=== PATIENT | female | born 1935 | race Caucasian/White ===

== ENCOUNTER 2016-08-19 11:13 | Inpatient (IN) | payer MEDICARE ==
[~2016-08-19] VITALS: Ht 165.1 cm; Wt 58.0 kg
[~2016-08-19 11:13] MED LIST: ACET325T9 PO; ALBU2.5V5 NEB; ALEN70TA5 PO; AMOX1TAB10 PO; BISA-42 RC; BISA10SU55 RC; BISM262O PO; BUDE10.2 IH; CHOL10003 PO; CHOL20004 PO; CLOP75TA PO; CYAN10002 IM; FURO-69 PO; LEVO250T25 PO; MAG30ORA2 PO; METO50TA2 PO; NA P133E2 RC; PRED-220 PO; PROAIR HFA8.5 GM INH; PYRI25TA2 PO; RANI300C PO; TIOT18CA IH; TRAM50TA PO; ZOLP5TAB4 PO
[2016-08-19 11:40] LABS: BASO % 0 % (0-3); EOS % 1 % (0-3); HEMATOCRIT 43.7 % (36.0-47.0); HEMOGLOBIN 14.5 g/dL (12.0-15.5); LYMPH # 1.2 x10^3/uL (1.0-4.8); LYMPH % 12 % (24-48); MEAN CORPUSCULAR HEMOGLOBIN 32 pg (25-35); MEAN CORPUSCULAR HGB CONC 33 g/dL (31-37); MEAN CORPUSCULAR VOLUME 97 fL (79-100); MONO % 7 % (0-9); NEUT % 80 % (31-73); PLATELET COUNT 235 x10^3/uL (140-400); RED BLOOD COUNT 4.52 x10^6/uL (3.50-5.40); RED CELL DISTRIBUTION WIDTH 13.1 % (11.5-14.5); WHITE BLOOD COUNT 10.2 x10^3/uL (4.0-11.0)
--- NOTE | 2016-08-19 11:50 | RAD ---
PQRS Compliance Statement: One or more of the following individualized dose reduction techniques were utilized for this examination: 1. Automated exposure control 2. Adjustment of the mA and/or kV according to patient size 3. Use of iterative reconstruction technique CT of the head without contrast, 08/19/2016: History: Slurred speech, left-sided weakness Comparison is made to a study from 06/29/2016. A moderate-sized area of encephalomalacia is again noted centered in the left parietal region compatible with an old infarct. There are mild additional patchy lucencies in the deep white matter bilaterally compatible with chronic ischemic change. There is cerebral atrophy. A small unchanged lucency in the posterior aspect of the right cerebellar hemisphere suggests a small old infarct. The ventricles are within normal limits in size. There is no shift of the midline structures. There is no evidence of acute intracranial hemorrhage or mass effect. Basal ganglia calcifications are present. IMPRESSION: 1. Chronic findings as described above. 2. No acute intracranial abnormality is detected. Note: The findings were called to personnel in the [facility] ER at 11:47 AM on 08/19/2016.
[2016-08-19 11:52] LABS: PROTHROMBIN TIME PATIENT 12.5 SEC (11.7-14.0)
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
[2016-08-19 12:32] LABS: BLOOD UREA NITROGEN 12 mg/dL (7-20); CALCIUM 8.8 mg/dL (8.5-10.1); CARBON DIOXIDE 44 mmol/L (21-32); CHLORIDE 101 mmol/L (98-107); CREATININE 0.7 mg/dL (0.6-1.0); GFR 80.7; GLUCOSE 127 mg/dL (70-99); POTASSIUM 4.6 mmol/L (3.5-5.1); SODIUM 142 mmol/L (136-145)
[2016-08-19 12:37] LABS: ALBUMIN 2.9 g/dL (3.4-5.0); ALK PHOS 106 U/L (46-116); ALT (SGPT) 16 U/L (14-59); AST (SGOT) 18 U/L (15-37); DIRECT BILIRUBIN 0.1 mg/dL (0.0-0.2); TOTAL BILIRUBIN 0.4 mg/dL (0.2-1.0); TOTAL PROTEIN 6.9 g/dL (6.4-8.2)
--- NOTE | 2016-08-19 12:49 | RAD ---
EXAM: Chest one view. HISTORY: Cough and weakness. COMPARISON: 07/05/2016. FINDINGS: A frontal view of the chest is obtained. Opacity in the left base is chronic and most likely represent epicardial fat pad or scarring. There is mild scarring or atelectasis on the right. There is no pneumothorax or clear pleural effusion. The heart is not enlarged. There are atherosclerotic calcifications of the aorta. IMPRESSION: 1. Bibasilar atelectasis or scarring.
--- NOTE | 2016-08-19 13:13 | EKG ---
[facility] [address] [place] [address] Test Date: 2016-08-19 Test Time: 12:16:58 Pat Name: MADHURI LYNN Department: Room: Gender: F Dietary Supervisor: : 1935 Requested By: Alejandro MENDEZ Order Number: [id number] Reading MD: Saloni Angulo Measurements Intervals [place] Rate: 94 P: 6 UT: 180 QRS: -26 QRSD: 72 T: 11 QT: 330 QTc: 413 Interpretive Statements SINUS RHYTHM LEFTWARD AXIS QRS(T) CONTOUR ABNORMALITY CONSIDER ANTEROLATERAL MYOCARDIAL DAMAGE ABNORMAL ECG RI6.01 Compared to ECG 07/30/2016 07:10:50 Left-axis deviation now present Sinus tachycardia no longer present Electronically Signed On 08-23-2016 20:17:11 UNIT AIDE by Saloni Angulo
[2016-08-19] MEDS ORDERED: ACETAMINOPHEN 325 MG TABLET. PO PRN (14:00)
[2016-08-19] MEDS ORDERED: ONDANSETRON PF 4 MG/2 ML VIAL. IV PRN ×2 (14:00→18:15)
--- NOTE | 2016-08-19 15:14 | PDOC2 ---
CARDIAC CONSULT DATE OF CONSULT Date of Consult DATE: 08/19/16 TIME: 14:53 REASON FOR CONSULT Reason for Consult: elevated troponin REFERRING PHYSICIAN Referring Physician: Dr. Aditya Lizarraga SOURCE Source: Chart review, Patient (who is not verbal) HISTORY OF PRESENT ILLNESS HISTORY OF PRESENT ILLNESS 81 year old female with multiple hospitalizations since and currently in SNF @ [facility]. Daughter presented for visit this a.m and found pt with left side weakness and slurred speech according to son. Son indicates patient is normally very talkative and chatty and currently unable to do this. Bronchitic cough over the last several days. Shakes head no to questions about CP and dyspnea. No acute changes in EKG, however, initial troponin level was 0.074 associated with normal Cr. CT head without new findings. Reason for Visit: elevated troponin level PAST MEDICAL HISTORY Cardiovascular: CHF (chronic diastolic), HTN, Hyperlipidemia Pulmonary: COPD (with home oxygen) CENTRAL NERVOUS SYSTEM: CVA (X 2 with first event ~ 12 years ago) GI: GERD Psych: Anxiety Musculoskeletal: Osteoarthritis Endocrine: Osteoporosis PAST SURGICAL HISTORY Past Surgical History: Appendectomy, Tonsillectomy, Hysterectomy FAMILY HISTORY Family History: Cancer (breast, sister) SOCIAL HISTORY Smoke: Quit (about 12 years ago) ALCOHOL: none Drugs: None Lives: [facility] ([facility]) ALLERGIES ALLERGIES: Coded Allergies: No Known Drug Allergies (Unverified , 03/03/16) ROS Review of System limited as non-verbal; nods head "no" to questions about CP or dyspnea PHYSICAL EXAM General: Alert, Cooperative, No acute distress HEENT: Atraumatic, PERRLA Lungs: Other (diminished anteriorly) Heart: Regular rate, Normal S1, Normal S2, No murmurs, Other (tele: SR) Abdomen: Normal bowel sounds, Soft Extremities: Other (1+ bilateral lower extremity edema) Skin: No rashes, Other (venous stasis changes bilaterally) Psych/Mental Status: Mood NL MUSCULOSKELETAL: Osteoarthritic changes both hands VITALS VITALS Vital Signs Date Time Temp Pulse Resp B/P Pulse Ox O2 Delivery O2 Flow Rate FiO2 08/19/16 13:13 90 28 127/57 94 Nasal Cannula 3 08/19/16 11:13 98.1 98.1 LABS Lab: Laboratory Tests Test 08/19/16 11:16 08/19/16 11:20 08/19/16 12:05 Glucose (Fingerstick) 121mg/dL (70-99) White Blood Count 10.2x10^3/uL (4.0-11.0) Red Blood Count 4.52x10^6/uL (3.50-5.40) Hemoglobin 14.5g/dL (12.0-15.5) Hematocrit 43.7% (36.0-47.0) Mean Corpuscular Volume 97fL (79-100) Mean Corpuscular Hemoglobin 32pg (25-35) Mean Corpuscular Hemoglobin Concent 33g/dL (31-37) Red Cell Distribution Width 13.1% (11.5-14.5) Platelet Count 235x10^3/uL (140-400) Neutrophils (%) (Auto) 80% (31-73) Lymphocytes (%) (Auto) 12% (24-48) Monocytes (%) (Auto) 7% (0-9) Eosinophils (%) (Auto) 1% (0-3) Basophils (%) (Auto) 0% (0-3) Neutrophils # (Auto) 8.1x10^3uL (1.8-7.7) Lymphocytes # (Auto) 1.2x10^3/uL (1.0-4.8) Monocytes # (Auto) 0.8x10^3/uL (0.0-1.1) Eosinophils # (Auto) 0.1x10^3/uL (0.0-0.7) Basophils # (Auto) 0.0x10^3/uL (0.0-0.2) Prothrombin Time 12.5SEC (11.7-14.0) Prothromb Time International Ratio 1.0 (0.8-1.1) Activated Partial Thromboplast Time 29SEC (24-38) Troponin I Quantitative 0.074ng/mL (0.000-0.055) Sodium Level 142mmol/L (136-145) Potassium Level 4.6mmol/L (3.5-5.1) Chloride Level 101mmol/L (98-107) Carbon Dioxide Level 44mmol/L (21-32) Anion Gap (6-14) Blood Urea Nitrogen 12mg/dL (7-20) Creatinine 0.7mg/dL (0.6-1.0) Estimated GFR (Cockcroft-Gault) 80.7 Glucose Level 127mg/dL (70-99) Calcium Level 8.8mg/dL (8.5-10.1) Total Bilirubin 0.4mg/dL (0.2-1.0) Direct Bilirubin 0.1mg/dL (0.0-0.2) Aspartate Amino Transf (AST/SGOT) 18U/L (15-37) Alanine Aminotransferase (ALT/SGPT) 16U/L (14-59) Alkaline Phosphatase 106U/L (46-116) Total Protein 6.9g/dL (6.4-8.2) Albumin 2.9g/dL (3.4-5.0) IMAGES IMAGES CXR: 08/19/2016: Opacity in the left base is chronic and most likely represent epicardial fat pad or scarring. There is mild scarring or atelectasis on the right. There is no pneumothorax or clear pleural effusion. The heart is not enlarged. There are atherosclerotic calcifications of the aorta. IMPRESSION: 1. Bibasilar atelectasis or scarring. CT head: 08/19/2016: Comparison is made to a study from 06/29/2016. A moderate-sized area of encephalomalacia is again noted centered in the left parietal region compatible with an old infarct. There are mild additional patchy lucencies in the deep white matter bilaterally compatible with chronic ischemic change. There is cerebral atrophy. A small unchanged lucency in the posterior aspect of the right cerebellar hemisphere suggests a small old infarct. The ventricles are within normal limits in size. There is no shift of the midline structures. There is no evidence of acute intracranial hemorrhage or mass effect. Basal ganglia calcifications are present. IMPRESSION: 1. Chronic findings as described above. 2. No acute intracranial abnormality is detected. EKG EKG no acute changes; baseline SR ECHOCARDIOGRAM ECHOCARDIOGRAM 07/06/2016: TTE: The left ventricle is normal size. The left ventricular systolic function is normal and the ejection fraction is within normal range. LV ejection fraction is 55-60%. There is normal left ventricular wall thickness. There is no significant aortic valvular stenosis. Doppler and Color Flow revealed mild aortic regurgitation. Doppler and Color Flow revealed trace mitral regurgitation. Doppler and Color Flow revealed moderate tricuspid regurgitation. PAP 55mmHg ASSESSMENT/PLAN ASSESSMENT/PLAN 1. suspected stroke repeat echo to evaluate for clot in chamber as age > 70; not a candidate for bubble study 2. trivial troponin elevation no acute changes in EKG continue serial markers for r/o echo to evaluate for WMA 3. chronic diastolic HF, preserved LV function BP will not currently support diuretics or BB may need to give IV if swallow affected re-evaluate in a.m . 4. HTN currently controlled 5. COPD, oxygen requiring 6. GERD Problems: JOHAN ROBIN APRN Aug 19, 2016 15:14
--- NOTE | 2016-08-19 15:43 | ACF ---
Admission Forms Criteria MENTAL STATUS CHANGE Clinical Indications for Inpatient Care (Place 'X' for any and all applicable criteria): Ongoing inpatient care may be needed for ANY ONE of the following(1)(2)(3)(5)(6) : [X]I. Suspected serious etiology (eg, medical disorder, BIT WELDER event) of mental status change [ ]II. Danger to self or others not manageable at lower level of care [ ]III. Grave disability (eg, inability to perform self care necessary at lower level of care) [ ]IV. Agitation or inappropriate behavior interfering with care for primary condition (eg, attempting to discontinue lines or drains prematurely, unable to cooperate with respiratory care) [ ]V. Delirium [A] [D][E] as described by ANY ONE of the following(26): [ ]a) Delirium due to alcohol or sedative [F] withdrawal [ ]b) Delirium of uncertain etiology that has not responded to appropriate empiric treatment [ ]c) Delirium that prevents performance of a life-sustaining function (eg, feeding or hydrating oneself) [ ]. General contraindications and/or Inappropriate clinical situations for Observational Care in patients with Mental Status Change, when ANY ONE of the following is required: [ ]a) Prediction of prolongation of LOS based on ANY ONE of the following may be considered as a contraindication for observational care 2, 3, 4, 5, 6, 7, 8, 9, 10, 11 [ ]i) Age > 65 yrs. [ ]ii) Patient arriving by ambulance [ ]iii) Patient with high acuity [ ]iv) Patient requiring vital sign monitoring [ ]v) Patient on IV medication [ ]b) Systolic blood pressures 180mmHg 3,12 [ ]c) Patient with altered mental status including delirium and other alteration of consciousness, (3) [ ]d) Patient whose discharge disposition will be to a [facility] home or rehabilitation home should not be managed in Emergency Department Observation Unit. CMS rule requires 3 days hospital stay before such placement.3,13 [ ]e) Patient with failure to thrive due to broad array of etiologies 3,16,17 [ ]f) Inability to ambulate 3,14 Extended stay beyond goal length of stay for the primary condition may be needed until ALL of the following are present(3)(5): [ ]a) Underlying medical etiology of mental status change is absent, or has been established and adequately treated [ ]b) Danger to self or others is absent or manageable at lower level of care. [ ]c) Behavior crisis management, including physical or chemical restraints, is not required or available at lower level of car [ ]d) Substance or alcohol withdrawal is absent or manageable at lower level of care. [ ]e) Behavioral symptoms (eg, agitation, somnolence, inappropriate behavior) are absent, or are manageable at lower level of care. The original [facility] content created by [facility] has been revised. The portions of the content which have been revised are identified through the use of italic text or in bold, and [facility] has neither reviewed nor approved the modified material. All other unmodified content is copyright [facility]. Please see references footnoted in the original [facility] edition 2016 Admission Criteria Met?: Yes FRANCK AMARO Aug 19, 2016 15:43
--- NOTE | 2016-08-19 17:12 | CARD ---
APPROVED REPORT EXAM: Two-dimensional and M-mode echocardiogram with Doppler and color Doppler. Other Information Quality : GoodHR: 87bpm Rhythm : NSR INDICATION Tachycardia 2D DIMENSIONS RVDd3.0 (2.9-3.5cm)Left Atrium(2D)2.8 (1.6-4.0cm) IVSd1.1 (0.7-1.1cm)Aortic Root(2D)3.5 (2.0-3.7cm) LVDd3.9 (3.9-5.9cm)PWd1.1 (0.7-1.1cm) LVDs2.8 (2.5-4.0cm)FS (%) 28.5 % SV37.4 mlLVEF(%)55.7 (>50%) Aortic Valve AoV Peak Johnson.111.8cm/sAoV VTI19.2cm AO Peak GR.5.0mmHgLVOT Peak Johnson.106.6cm/s AO Mean GR.3mmHg Mitral Valve MV E Dteborui41.5cm/sMV DECEL LOMD145gg MV A Unalfrag839.9cm/sE/A Ratio0.5 MV A [id number] Pulmonary Valve PV Peak Unmgyacm13.4cm/s Tricuspid Valve TR P. Qayogxzu282rw/sTR Peak Gr.50mmHg LEFT VENTRICLE The left ventricle is normal size. There is normal left ventricular wall thickness. The left ventricu lar systolic function is normal and the ejection fraction is within normal range. The Ejection Fracti on is 55-60%. There is normal LV segmental wall motion. Transmitral Doppler flow pattern is Grade I-a bnormal relaxation pattern. No left ventricle thrombus noted on this study. There is no ventricular s eptal defect visualized. RIGHT VENTRICLE The right ventricle is normal size. There is normal right ventricular wall thickness. The right ventr icular systolic function is normal. ATRIA The left atrium size is normal. The right atrium size is normal. The interatrial septum is intact wit h no evidence for an atrial septal defect or patent foramen ovale as noted on 2-D or Doppler imaging. AORTIC VALVE The aortic valve is mildly sclerotic. Doppler and Color Flow revealed mild aortic regurgitation. Ther e is no significant aortic valvular stenosis. MITRAL VALVE Mitral annular calcification is mild. The mitral valve leaflets are thickened. There is no evidence o f mitral valve prolapse. There is no mitral valve stenosis. Doppler and Color Flow revealed trace derrell ral regurgitation. TRICUSPID VALVE Doppler and Color Flow revealed mild tricuspid regurgitation. The pulmonary artery systolic pressure is estimated at 55 mmHg. There is moderate pulmonary hypertension. PULMONIC VALVE Doppler and Color Flow revealed mild pulmonic valvular regurgitation. There is no pulmonic valvular s tenosis. GREAT VESSELS The aortic root is normal in size. The ascending aorta is normal in size. The pulmonary artery is nor mal. The IVC is normal in size and collapses >50% with inspiration. PERICARDIAL EFFUSION There is no evidence of significant pericardial effusion. Critical Notification Critical Value: No <Conclusion> The left ventricle is normal size. The left ventricular systolic function is normal and the ejection fraction is within normal range. The Ejection Fraction is 55-60%. There is no significant aortic valvular stenosis. Doppler and Color Flow revealed mild aortic regurgitation. Doppler and Color Flow revealed trace mitral regurgitation. Doppler and Color Flow revealed mild tricuspid regurgitation. The pulmonary artery systolic pressure is estimated at 55 mmHg. There is moderate pulmonary hypertension.
--- NOTE | 2016-08-19 18:03 | PDOC1 ---
History and Physical Past Medical History Cardiovascular: CHF (chronic diastolic), HTN, Hyperlipidemia Pulmonary: COPD (with home oxygen) CENTRAL NERVOUS SYSTEM: CVA (X 2 with first event ~ 12 years ago) GI: GERD Heme/Onc: No pertinent hx Hepatobiliary: No pertinent hx Psych: Anxiety Endocrine: Osteoporosis Past Surgical History Past Surgical History: Appendectomy, Tonsillectomy, Hysterectomy Family History Family History: Cancer (breast, sister) Social History Smoke: Quit (about 12 years ago) ALCOHOL: none Drugs: None Current Problem List Problem List Problems Medical Problems: (1) Altered mental status Status: Acute (2) Dysphasia Status: Acute (3) Elevated troponin Status: Acute Current Medications Current Medications Current Medications Medications (Trade) Dose Ordered Sig/Baldo Start Time Stop Time Status Last Admin Dose Admin Acetaminophen (Tylenol) 650 mg PRN Q4HRS PRN 08/19/16 14:00 08/20/16 13:59 Ondansetron HCl (Zofran) 4 mg PRN Q8HRS PRN 08/19/16 14:00 08/20/16 13:59 Allergies Allergies Allergies Coded Allergies Type Severity Reaction Last Updated Verified No Known Drug Allergies 03/03/16 No ROS Review of System CONSTITUTIONAL: No fever or chills EYES: No recent changes SKIN: No rash or itching CARDIOVASCULAR: No chest pain, syncope, palpitations, or edema RESPIRATORY: No SOB or cough GASTROINTESTINAL: No nausea, vomiting or abdominal pain NEUROLOGICAL: speech changes. ENDOCRINE: No cold or heat intolerance GENITOURINARY: No urgency or frequency of urination MUSCULOSKELETAL: No back pain or joint pain LYMPHATICS: No enlarged lymph nodes PSYCHIATRIC: No anxiety or depression Physical Exam Physical Exam GEN.: Mild distress. Alert and oriented. HEENT: Head is normocephalic, atraumatic NECK: Supple. no jvd LUNGS: Clear to auscultation. normal airflow, HEART: RRR, S1, S2 present. Peripheral pulses intact ABDOMEN: Soft, nontender. Positive bowel sounds. EXTREMITIES: Without any cyanosis. no jvd NEUROLOGIC: dysarthria, confused. PSYCHIATRIC: Normal affect, normal mood. SKIN: No visible skin changes. Vitals Vitals Vital Signs Date Time Temp Pulse Resp B/P Pulse Ox O2 Delivery O2 Flow Rate FiO2 08/19/16 16:07 90 34 122/57 93 Nasal Cannula 4 08/19/16 11:13 98.1 98.1 Labs Labs Laboratory Tests Test 08/19/16 11:16 08/19/16 11:20 08/19/16 12:05 Glucose (Fingerstick) 121mg/dL (70-99) White Blood Count 10.2x10^3/uL (4.0-11.0) Red Blood Count 4.52x10^6/uL (3.50-5.40) Hemoglobin 14.5g/dL (12.0-15.5) Hematocrit 43.7% (36.0-47.0) Mean Corpuscular Volume 97fL (79-100) Mean Corpuscular Hemoglobin 32pg (25-35) Mean Corpuscular Hemoglobin Concent 33g/dL (31-37) Red Cell Distribution Width 13.1% (11.5-14.5) Platelet Count 235x10^3/uL (140-400) Neutrophils (%) (Auto) 80% (31-73) Lymphocytes (%) (Auto) 12% (24-48) Monocytes (%) (Auto) 7% (0-9) Eosinophils (%) (Auto) 1% (0-3) Basophils (%) (Auto) 0% (0-3) Neutrophils # (Auto) 8.1x10^3uL (1.8-7.7) Lymphocytes # (Auto) 1.2x10^3/uL (1.0-4.8) Monocytes # (Auto) 0.8x10^3/uL (0.0-1.1) Eosinophils # (Auto) 0.1x10^3/uL (0.0-0.7) Basophils # (Auto) 0.0x10^3/uL (0.0-0.2) Prothrombin Time 12.5SEC (11.7-14.0) Prothromb Time International Ratio 1.0 (0.8-1.1) Activated Partial Thromboplast Time 29SEC (24-38) Troponin I Quantitative 0.074ng/mL (0.000-0.055) Sodium Level 142mmol/L (136-145) Potassium Level 4.6mmol/L (3.5-5.1) Chloride Level 101mmol/L (98-107) Carbon Dioxide Level 44mmol/L (21-32) Anion Gap (6-14) Blood Urea Nitrogen 12mg/dL (7-20) Creatinine 0.7mg/dL (0.6-1.0) Estimated GFR (Cockcroft-Gault) 80.7 Glucose Level 127mg/dL (70-99) Calcium Level 8.8mg/dL (8.5-10.1) Total Bilirubin 0.4mg/dL (0.2-1.0) Direct Bilirubin 0.1mg/dL (0.0-0.2) Aspartate Amino Transf (AST/SGOT) 18U/L (15-37) Alanine Aminotransferase (ALT/SGPT) 16U/L (14-59) Alkaline Phosphatase 106U/L (46-116) Total Protein 6.9g/dL (6.4-8.2) Albumin 2.9g/dL (3.4-5.0) Laboratory Tests Test 08/19/16 11:16 08/19/16 11:20 08/19/16 12:05 Glucose (Fingerstick) 121mg/dL (70-99) White Blood Count 10.2x10^3/uL (4.0-11.0) Red Blood Count 4.52x10^6/uL (3.50-5.40) Hemoglobin 14.5g/dL (12.0-15.5) Hematocrit 43.7% (36.0-47.0) Mean Corpuscular Volume 97fL (79-100) Mean Corpuscular Hemoglobin 32pg (25-35) Mean Corpuscular Hemoglobin Concent 33g/dL (31-37) Red Cell Distribution Width 13.1% (11.5-14.5) Platelet Count 235x10^3/uL (140-400) Neutrophils (%) (Auto) 80% (31-73) Lymphocytes (%) (Auto) 12% (24-48) Monocytes (%) (Auto) 7% (0-9) Eosinophils (%) (Auto) 1% (0-3) Basophils (%) (Auto) 0% (0-3) Neutrophils # (Auto) 8.1x10^3uL (1.8-7.7) Lymphocytes # (Auto) 1.2x10^3/uL (1.0-4.8) Monocytes # (Auto) 0.8x10^3/uL (0.0-1.1) Eosinophils # (Auto) 0.1x10^3/uL (0.0-0.7) Basophils # (Auto) 0.0x10^3/uL (0.0-0.2) Prothrombin Time 12.5SEC (11.7-14.0) Prothromb Time International Ratio 1.0 (0.8-1.1) Activated Partial Thromboplast Time 29SEC (24-38) Troponin I Quantitative 0.074ng/mL (0.000-0.055) Sodium Level 142mmol/L (136-145) Potassium Level 4.6mmol/L (3.5-5.1) Chloride Level 101mmol/L (98-107) Carbon Dioxide Level 44mmol/L (21-32) Anion Gap (6-14) Blood Urea Nitrogen 12mg/dL (7-20) Creatinine 0.7mg/dL (0.6-1.0) Estimated GFR (Cockcroft-Gault) 80.7 Glucose Level 127mg/dL (70-99) Calcium Level 8.8mg/dL (8.5-10.1) Total Bilirubin 0.4mg/dL (0.2-1.0) Direct Bilirubin 0.1mg/dL (0.0-0.2) Aspartate Amino Transf (AST/SGOT) 18U/L (15-37) Alanine Aminotransferase (ALT/SGPT) 16U/L (14-59) Alkaline Phosphatase 106U/L (46-116) Total Protein 6.9g/dL (6.4-8.2) Albumin 2.9g/dL (3.4-5.0) VTE Prophylaxis Ordered VTE Prophylaxis Devices: Yes VTE Pharmacological Prophylaxi: Yes LEXY ARRINGTON MD Aug 19, 2016 18:03
[2016-08-19] MEDS ORDERED: HYDROCODONE/APAP 5/325MG TABLET. PO PRN (18:15)
[2016-08-19] MEDS ORDERED: ALBUTEROL SULFATE 2.5 MG/3 ML NEBU. NEB PRN (18:15)
[2016-08-19] MEDS ORDERED: hydrALAZINE 20 MG/ML VIAL. IVP PRN (18:15)
[2016-08-19] MEDS: IV NORMAL SALINE 1000ML BAG 1,000 ML IV SCH (18:42)
[2016-08-19 21:27] VITALS: BP 134/59
--- NOTE | 2016-08-19 21:50 | HP ---
ADMIT DATE: 08/19/2016 CHIEF COMPLAINT: Speech changes. HISTORY OF PRESENT ILLNESS: A 81-year-old female patient, who was brought from [facility] for speech changes. Reportedly, the patient's daughter noticed this morning about some confusion and speech changes. As per the daughter, mother had slurring of speech and she was brought to the Emergency Room for questionable CVA; however, upon arrival, the patient's CT head is negative and she is out of TPA window. At the time of my examination, the patient is mildly confused and denies any symptoms; however, she is following commands and no obvious physical weakness seen in extremities. However, she still have dysarthria. She noted to have some mild elevation of troponins 0.074 and having mild distress. REVIEW OF SYSTEMS: Please see my electronic H and P. LABORATORY DATA: Sodium 142, potassium 4.6, chloride is 101, carbon dioxide 44, gap is not calculated, BUN is 12, creatinine is 0.7. Troponin is 0.074. CBC: Hemoglobin is 14.5, MCV is 97, platelets is 235. Serology not done. IMAGING STUDIES: 1. Chest x-ray, bilateral atelectasis. 2. CT of the head, no acute process seen. ASSESSMENT AND PLAN: 1. Dysarthria suspected cerebrovascular accident. 2. Prior history of cerebrovascular accident. 3. Hypertension. 4. Chronic diastolic heart failure. 5. Chronic obstructive pulmonary disease. 6. Mild elevation of troponins. 7. Altered mental state, AO times 2, slow response PLAN: 1. We will get an MRI and consult neurology. At this time, the patient is out of TPA window. 2. Consult Cardiology and monitor troponin. 3. Home medications reviewed and counseled. 4. Echocardiogram done in the ER, elevated ejection fraction 55%-60% with mild elevation of pulmonary arterial systolic pressure. 5. Physical therapy and occupational therapy. 6. The patient's swallow evaluation. 7. Follow Neurology recommendations. 8. Prognosis is guarded. LEXY ARRINGTON MD DR: LUC/zoran JOB#: [id number] / [id number] ABHISHEK
[2016-08-19 23:00] VITALS: BP 132/62
[2016-08-19] MEDS ORDERED: RANI300C PO (23:03)
[2016-08-19] MEDS ORDERED: ALEN70TA5 PO (23:03)
[2016-08-19] MEDS ORDERED: PYRI50TA4 PO (23:03)
[2016-08-20 03:10] VITALS: BP 138/63
[2016-08-20 05:49] LABS: BASO % 0 % (0-3); EOS % 0 % (0-3); HEMATOCRIT 43.3 % (36.0-47.0); HEMOGLOBIN 13.8 g/dL (12.0-15.5); LYMPH # 0.7 x10^3/uL (1.0-4.8); LYMPH % 7 % (24-48); MEAN CORPUSCULAR HEMOGLOBIN 32 pg (25-35); MEAN CORPUSCULAR HGB CONC 32 g/dL (31-37); MEAN CORPUSCULAR VOLUME 100 fL (79-100); MONO % 5 % (0-9); NEUT % 88 % (31-73); PLATELET COUNT 181 x10^3/uL (140-400); RED BLOOD COUNT 4.32 x10^6/uL (3.50-5.40); RED CELL DISTRIBUTION WIDTH 13.3 % (11.5-14.5)
[2016-08-20 05:56] LABS: BLOOD UREA NITROGEN 12 mg/dL (7-20); CALCIUM 8.8 mg/dL (8.5-10.1); CARBON DIOXIDE 41 mmol/L (21-32); CHLORIDE 101 mmol/L (98-107); CREATININE 0.5 mg/dL (0.6-1.0); GLUCOSE 102 mg/dL (70-99); POTASSIUM 4.6 mmol/L (3.5-5.1); SODIUM 139 mmol/L (136-145)
[2016-08-20] MEDS: IV NORMAL SALINE 1000ML BAG 1,000 ML IV SCH ×2 (07:35→09:52)
[2016-08-20 08:00] VITALS: BP 139/66
[2016-08-20 08:41] LABS: HCO3 ABG 43 mmol/L (21-28); PO2 ABG 105 mmHg (65-108); SAT O2 ABG 97 % (92-99)
[2016-08-20 08:44] LABS: PH ABG 7.19 (7.35-7.45)
[2016-08-20 08:45] LABS: FIO2 ABG 36; PCO2 ABG 115 mmHg (35-46)
[2016-08-20] MEDS: CHOLECALCIFEROL (VITAMIN D3) 1,000 UNIT TABLET PO SCH ×2 (09:00→20:50)
[2016-08-20] MEDS: METOPROLOL TART IMMED RELEASE 50 MG TABLET PO SCH ×2 (09:00→20:50)
--- NOTE | 2016-08-20 09:11 | PDOC ---
Provider Note Provider Note dictated see orders for BIPAP CHEYANNE SUTHERLAND MD Aug 20, 2016 09:10
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
--- NOTE | 2016-08-20 10:03 | PDOC ---
CARDIO Progress Notes Date and Time Date of Service 08/20/2016 Time of Evaluation 0930 Subjective Subjective: No Chest Pain, Other (lethargic) Vitals Vitals Vital Signs Date Time Temp Pulse Resp B/P Pulse Ox O2 Delivery O2 Flow Rate FiO2 08/20/16 09:09 93 BiPAP/CPAP 08/20/16 09:00 130 139/66 08/20/16 08:00 4.0 08/20/16 08:00 99.0 28 99.0 Weight Weight [ ] Input and Output Intake and Output Intake and Output 08/20/16 07:00 Output Total 1 ml Balance -1 ml Output Urine Total 1 ml # Voids 3 Laboratory Labs Laboratory Tests Test 08/19/16 11:16 08/19/16 11:20 08/19/16 12:05 08/19/16 17:55 Glucose (Fingerstick) 121mg/dL (70-99) White Blood Count 10.2x10^3/uL (4.0-11.0) Red Blood Count 4.52x10^6/uL (3.50-5.40) Hemoglobin 14.5g/dL (12.0-15.5) Hematocrit 43.7% (36.0-47.0) Mean Corpuscular Volume 97fL (79-100) Mean Corpuscular Hemoglobin 32pg (25-35) Mean Corpuscular Hemoglobin Concent 33g/dL (31-37) Red Cell Distribution Width 13.1% (11.5-14.5) Platelet Count 235x10^3/uL (140-400) Neutrophils (%) (Auto) 80% (31-73) Lymphocytes (%) (Auto) 12% (24-48) Monocytes (%) (Auto) 7% (0-9) Eosinophils (%) (Auto) 1% (0-3) Basophils (%) (Auto) 0% (0-3) Neutrophils # (Auto) 8.1x10^3uL (1.8-7.7) Lymphocytes # (Auto) 1.2x10^3/uL (1.0-4.8) Monocytes # (Auto) 0.8x10^3/uL (0.0-1.1) Eosinophils # (Auto) 0.1x10^3/uL (0.0-0.7) Basophils # (Auto) 0.0x10^3/uL (0.0-0.2) Prothrombin Time 12.5SEC (11.7-14.0) Prothromb Time International Ratio 1.0 (0.8-1.1) Activated Partial Thromboplast Time 29SEC (24-38) Troponin I Quantitative 0.074ng/mL (0.000-0.055) 0.060ng/mL (0.000-0.055) Sodium Level 142mmol/L (136-145) Potassium Level 4.6mmol/L (3.5-5.1) Chloride Level 101mmol/L (98-107) Carbon Dioxide Level 44mmol/L (21-32) Anion Gap (6-14) Blood Urea Nitrogen 12mg/dL (7-20) Creatinine 0.7mg/dL (0.6-1.0) Estimated GFR (Cockcroft-Gault) 80.7 Glucose Level 127mg/dL (70-99) Calcium Level 8.8mg/dL (8.5-10.1) Total Bilirubin 0.4mg/dL (0.2-1.0) Direct Bilirubin 0.1mg/dL (0.0-0.2) Aspartate Amino Transf (AST/SGOT) 18U/L (15-37) Alanine Aminotransferase (ALT/SGPT) 16U/L (14-59) Alkaline Phosphatase 106U/L (46-116) Total Protein 6.9g/dL (6.4-8.2) Albumin 2.9g/dL (3.4-5.0) Test 08/20/16 00:28 08/20/16 05:20 08/20/16 07:25 Troponin I Quantitative 0.082ng/mL (0.000-0.055) White Blood Count 10.0x10^3/uL (4.0-11.0) Red Blood Count 4.32x10^6/uL (3.50-5.40) Hemoglobin 13.8g/dL (12.0-15.5) Hematocrit 43.3% (36.0-47.0) Mean Corpuscular Volume 100fL (79-100) Mean Corpuscular Hemoglobin 32pg (25-35) Mean Corpuscular Hemoglobin Concent 32g/dL (31-37) Red Cell Distribution Width 13.3% (11.5-14.5) Platelet Count 181x10^3/uL (140-400) Neutrophils (%) (Auto) 88% (31-73) Lymphocytes (%) (Auto) 7% (24-48) Monocytes (%) (Auto) 5% (0-9) Eosinophils (%) (Auto) 0% (0-3) Basophils (%) (Auto) 0% (0-3) Neutrophils # (Auto) 8.8x10^3uL (1.8-7.7) Lymphocytes # (Auto) 0.7x10^3/uL (1.0-4.8) Monocytes # (Auto) 0.5x10^3/uL (0.0-1.1) Eosinophils # (Auto) 0.0x10^3/uL (0.0-0.7) Basophils # (Auto) 0.0x10^3/uL (0.0-0.2) Sodium Level 139mmol/L (136-145) Potassium Level 4.6mmol/L (3.5-5.1) Chloride Level 101mmol/L (98-107) Carbon Dioxide Level 41mmol/L (21-32) Anion Gap (6-14) Blood Urea Nitrogen 12mg/dL (7-20) Creatinine 0.5mg/dL (0.6-1.0) Estimated GFR (Cockcroft-Gault) 119.0 Glucose Level 102mg/dL (70-99) Calcium Level 8.8mg/dL (8.5-10.1) O2 Saturation 97% (92-99) Arterial Blood pH 7.19 (7.35-7.45) Arterial Blood pCO2 at Patient Temp 115mmHg (35-46) Arterial Blood pO2 at Patient Temp 105mmHg (65-108) Arterial Blood HCO3 43mmol/L (21-28) Arterial Blood Base Excess 10mmol/L (-3-3) FiO2 36 Physical Exam HEENT: Neck Supple W Full Motion Chest: Symmetric LUNGS: Other (bibasilarc crackles) Heart: S1S2, RRR Abdomen: Soft N/T Extremities: No Edema, No Calf Tenderness Neurology: other (lethargic) Assessment Assessment 1. Acute respiratory failure with underlying COPD/mod pulmonary HTN 2. Hypoxic encephalopathy with possible stroke 3. Elevated troponin: peaked 0.082. demand mediated 4. HTN: Controlled 5. Chronic diastolic HF: TTE with normal wall motion, preserved EF. No significant valvular insufficiencies, no septal defects 6. Possible MAT: better after BB Recommendation 1. Bipap per pulmonary 2. Stroke w/u per neurology 3. Pt on plavix at home, will defer antiplatelet of choice to neurology 4 .Continue with BB 5. lipid panel, TSH 6. Would consider future outpt MPI for further risk stratification 7. No further cardiac workup at this time DARLINE MAYBERRY APRN Aug 20, 2016 10:03
--- NOTE | 2016-08-20 10:14 | PDOC ---
PROGRESS NOTES Chief Complaint Chief Complaint 1. Dysarthria AMS POA 2. Prior history of cerebrovascular accident. 3. Hypertension. 4. Chronic diastolic heart failure. 5. Chronic obstructive pulmonary disease. 6. Mild elevation of troponin. 7. Hypercapnic respiratory failure Plan ABG reviewed, in respiratory acidosis started on Bipap Pulmonolgy consult MRI pending Supple mental oxygen Aspirin or Plavix per neurology, awaiting neurology input PT/OT ECHO normal EF d/w cardiology home medications reconciled periodic nebulizations prn History of Present Illness History of Present Illness MORE CONFUSION THIS NO FEVER NO CHILLS Vitals Vitals Vital Signs Date Time Temp Pulse Resp B/P Pulse Ox O2 Delivery O2 Flow Rate FiO2 08/20/16 09:09 93 BiPAP/CPAP 08/20/16 09:00 130 139/66 08/20/16 08:00 4.0 08/20/16 08:00 99.0 28 99.0 Physical Exam General: Alert, Cooperative, No acute distress Heart: Regular rate, Normal S1, Normal S2, No murmurs, Other (tele: SR) Lungs: Wheezing, Other Abdomen: Normal bowel sounds, Soft Extremities: Other (1+ bilateral lower extremity edema) Skin: No rashes, Other (venous stasis changes bilaterally) Labs LABS Laboratory Tests Test 08/19/16 11:16 08/19/16 11:20 08/19/16 12:05 08/19/16 17:55 Glucose (Fingerstick) 121mg/dL (70-99) White Blood Count 10.2x10^3/uL (4.0-11.0) Red Blood Count 4.52x10^6/uL (3.50-5.40) Hemoglobin 14.5g/dL (12.0-15.5) Hematocrit 43.7% (36.0-47.0) Mean Corpuscular Volume 97fL (79-100) Mean Corpuscular Hemoglobin 32pg (25-35) Mean Corpuscular Hemoglobin Concent 33g/dL (31-37) Red Cell Distribution Width 13.1% (11.5-14.5) Platelet Count 235x10^3/uL (140-400) Neutrophils (%) (Auto) 80% (31-73) Lymphocytes (%) (Auto) 12% (24-48) Monocytes (%) (Auto) 7% (0-9) Eosinophils (%) (Auto) 1% (0-3) Basophils (%) (Auto) 0% (0-3) Neutrophils # (Auto) 8.1x10^3uL (1.8-7.7) Lymphocytes # (Auto) 1.2x10^3/uL (1.0-4.8) Monocytes # (Auto) 0.8x10^3/uL (0.0-1.1) Eosinophils # (Auto) 0.1x10^3/uL (0.0-0.7) Basophils # (Auto) 0.0x10^3/uL (0.0-0.2) Prothrombin Time 12.5SEC (11.7-14.0) Prothromb Time International Ratio 1.0 (0.8-1.1) Activated Partial Thromboplast Time 29SEC (24-38) Troponin I Quantitative 0.074ng/mL (0.000-0.055) 0.060ng/mL (0.000-0.055) Sodium Level 142mmol/L (136-145) Potassium Level 4.6mmol/L (3.5-5.1) Chloride Level 101mmol/L (98-107) Carbon Dioxide Level 44mmol/L (21-32) Anion Gap (6-14) Blood Urea Nitrogen 12mg/dL (7-20) Creatinine 0.7mg/dL (0.6-1.0) Estimated GFR (Cockcroft-Gault) 80.7 Glucose Level 127mg/dL (70-99) Calcium Level 8.8mg/dL (8.5-10.1) Total Bilirubin 0.4mg/dL (0.2-1.0) Direct Bilirubin 0.1mg/dL (0.0-0.2) Aspartate Amino Transf (AST/SGOT) 18U/L (15-37) Alanine Aminotransferase (ALT/SGPT) 16U/L (14-59) Alkaline Phosphatase 106U/L (46-116) Total Protein 6.9g/dL (6.4-8.2) Albumin 2.9g/dL (3.4-5.0) Test 08/20/16 00:28 08/20/16 05:20 08/20/16 07:25 Troponin I Quantitative 0.082ng/mL (0.000-0.055) 0.105ng/mL (0.000-0.055) White Blood Count 10.0x10^3/uL (4.0-11.0) Red Blood Count 4.32x10^6/uL (3.50-5.40) Hemoglobin 13.8g/dL (12.0-15.5) Hematocrit 43.3% (36.0-47.0) Mean Corpuscular Volume 100fL (79-100) Mean Corpuscular Hemoglobin 32pg (25-35) Mean Corpuscular Hemoglobin Concent 32g/dL (31-37) Red Cell Distribution Width 13.3% (11.5-14.5) Platelet Count 181x10^3/uL (140-400) Neutrophils (%) (Auto) 88% (31-73) Lymphocytes (%) (Auto) 7% (24-48) Monocytes (%) (Auto) 5% (0-9) Eosinophils (%) (Auto) 0% (0-3) Basophils (%) (Auto) 0% (0-3) Neutrophils # (Auto) 8.8x10^3uL (1.8-7.7) Lymphocytes # (Auto) 0.7x10^3/uL (1.0-4.8) Monocytes # (Auto) 0.5x10^3/uL (0.0-1.1) Eosinophils # (Auto) 0.0x10^3/uL (0.0-0.7) Basophils # (Auto) 0.0x10^3/uL (0.0-0.2) Sodium Level 139mmol/L (136-145) Potassium Level 4.6mmol/L (3.5-5.1) Chloride Level 101mmol/L (98-107) Carbon Dioxide Level 41mmol/L (21-32) Anion Gap (6-14) Blood Urea Nitrogen 12mg/dL (7-20) Creatinine 0.5mg/dL (0.6-1.0) Estimated GFR (Cockcroft-Gault) 119.0 Glucose Level 102mg/dL (70-99) Calcium Level 8.8mg/dL (8.5-10.1) O2 Saturation 97% (92-99) Arterial Blood pH 7.19 (7.35-7.45) Arterial Blood pCO2 at Patient Temp 115mmHg (35-46) Arterial Blood pO2 at Patient Temp 105mmHg (65-108) Arterial Blood HCO3 43mmol/L (21-28) Arterial Blood Base Excess 10mmol/L (-3-3) FiO2 36 Assessment and Plan Assessmemt and Plan Problems Medical Problems: (1) Altered mental status Status: Acute (2) Dysphasia Status: Acute (3) Elevated troponin Status: Acute Problems: Comment Review of Relevant I have reviewed the following items ana laura (where applicable) has been applied. Labs Laboratory Tests Test 08/19/16 11:16 08/19/16 11:20 08/19/16 12:05 08/19/16 17:55 Glucose (Fingerstick) 121mg/dL (70-99) White Blood Count 10.2x10^3/uL (4.0-11.0) Red Blood Count 4.52x10^6/uL (3.50-5.40) Hemoglobin 14.5g/dL (12.0-15.5) Hematocrit 43.7% (36.0-47.0) Mean Corpuscular Volume 97fL (79-100) Mean Corpuscular Hemoglobin 32pg (25-35) Mean Corpuscular Hemoglobin Concent 33g/dL (31-37) Red Cell Distribution Width 13.1% (11.5-14.5) Platelet Count 235x10^3/uL (140-400) Neutrophils (%) (Auto) 80% (31-73) Lymphocytes (%) (Auto) 12% (24-48) Monocytes (%) (Auto) 7% (0-9) Eosinophils (%) (Auto) 1% (0-3) Basophils (%) (Auto) 0% (0-3) Neutrophils # (Auto) 8.1x10^3uL (1.8-7.7) Lymphocytes # (Auto) 1.2x10^3/uL (1.0-4.8) Monocytes # (Auto) 0.8x10^3/uL (0.0-1.1) Eosinophils # (Auto) 0.1x10^3/uL (0.0-0.7) Basophils # (Auto) 0.0x10^3/uL (0.0-0.2) Prothrombin Time 12.5SEC (11.7-14.0) Prothromb Time International Ratio 1.0 (0.8-1.1) Activated Partial Thromboplast Time 29SEC (24-38) Troponin I Quantitative 0.074ng/mL (0.000-0.055) 0.060ng/mL (0.000-0.055) Sodium Level 142mmol/L (136-145) Potassium Level 4.6mmol/L (3.5-5.1) Chloride Level 101mmol/L (98-107) Carbon Dioxide Level 44mmol/L (21-32) Anion Gap (6-14) Blood Urea Nitrogen 12mg/dL (7-20) Creatinine 0.7mg/dL (0.6-1.0) Estimated GFR (Cockcroft-Gault) 80.7 Glucose Level 127mg/dL (70-99) Calcium Level 8.8mg/dL (8.5-10.1) Total Bilirubin 0.4mg/dL (0.2-1.0) Direct Bilirubin 0.1mg/dL (0.0-0.2) Aspartate Amino Transf (AST/SGOT) 18U/L (15-37) Alanine Aminotransferase (ALT/SGPT) 16U/L (14-59) Alkaline Phosphatase 106U/L (46-116) Total Protein 6.9g/dL (6.4-8.2) Albumin 2.9g/dL (3.4-5.0) Test 08/20/16 00:28 08/20/16 05:20 08/20/16 07:25 Troponin I Quantitative 0.082ng/mL (0.000-0.055) 0.105ng/mL (0.000-0.055) White Blood Count 10.0x10^3/uL (4.0-11.0) Red Blood Count 4.32x10^6/uL (3.50-5.40) Hemoglobin 13.8g/dL (12.0-15.5) Hematocrit 43.3% (36.0-47.0) Mean Corpuscular Volume 100fL (79-100) Mean Corpuscular Hemoglobin 32pg (25-35) Mean Corpuscular Hemoglobin Concent 32g/dL (31-37) Red Cell Distribution Width 13.3% (11.5-14.5) Platelet Count 181x10^3/uL (140-400) Neutrophils (%) (Auto) 88% (31-73) Lymphocytes (%) (Auto) 7% (24-48) Monocytes (%) (Auto) 5% (0-9) Eosinophils (%) (Auto) 0% (0-3) Basophils (%) (Auto) 0% (0-3) Neutrophils # (Auto) 8.8x10^3uL (1.8-7.7) Lymphocytes # (Auto) 0.7x10^3/uL (1.0-4.8) Monocytes # (Auto) 0.5x10^3/uL (0.0-1.1) Eosinophils # (Auto) 0.0x10^3/uL (0.0-0.7) Basophils # (Auto) 0.0x10^3/uL (0.0-0.2) Sodium Level 139mmol/L (136-145) Potassium Level 4.6mmol/L (3.5-5.1) Chloride Level 101mmol/L (98-107) Carbon Dioxide Level 41mmol/L (21-32) Anion Gap (6-14) Blood Urea Nitrogen 12mg/dL (7-20) Creatinine 0.5mg/dL (0.6-1.0) Estimated GFR (Cockcroft-Gault) 119.0 Glucose Level 102mg/dL (70-99) Calcium Level 8.8mg/dL (8.5-10.1) O2 Saturation 97% (92-99) Arterial Blood pH 7.19 (7.35-7.45) Arterial Blood pCO2 at Patient Temp 115mmHg (35-46) Arterial Blood pO2 at Patient Temp 105mmHg (65-108) Arterial Blood HCO3 43mmol/L (21-28) Arterial Blood Base Excess 10mmol/L (-3-3) FiO2 36 Laboratory Tests Test 08/19/16 11:16 08/19/16 11:20 08/19/16 12:05 08/19/16 17:55 Glucose (Fingerstick) 121mg/dL (70-99) White Blood Count 10.2x10^3/uL (4.0-11.0) Red Blood Count 4.52x10^6/uL (3.50-5.40) Hemoglobin 14.5g/dL (12.0-15.5) Hematocrit 43.7% (36.0-47.0) Mean Corpuscular Volume 97fL (79-100) Mean Corpuscular Hemoglobin 32pg (25-35) Mean Corpuscular Hemoglobin Concent 33g/dL (31-37) Red Cell Distribution Width 13.1% (11.5-14.5) Platelet Count 235x10^3/uL (140-400) Neutrophils (%) (Auto) 80% (31-73) Lymphocytes (%) (Auto) 12% (24-48) Monocytes (%) (Auto) 7% (0-9) Eosinophils (%) (Auto) 1% (0-3) Basophils (%) (Auto) 0% (0-3) Neutrophils # (Auto) 8.1x10^3uL (1.8-7.7) Lymphocytes # (Auto) 1.2x10^3/uL (1.0-4.8) Monocytes # (Auto) 0.8x10^3/uL (0.0-1.1) Eosinophils # (Auto) 0.1x10^3/uL (0.0-0.7) Basophils # (Auto) 0.0x10^3/uL (0.0-0.2) Prothrombin Time 12.5SEC (11.7-14.0) Prothromb Time International Ratio 1.0 (0.8-1.1) Activated Partial Thromboplast Time 29SEC (24-38) Troponin I Quantitative 0.074ng/mL (0.000-0.055) 0.060ng/mL (0.000-0.055) Sodium Level 142mmol/L (136-145) Potassium Level 4.6mmol/L (3.5-5.1) Chloride Level 101mmol/L (98-107) Carbon Dioxide Level 44mmol/L (21-32) Anion Gap (6-14) Blood Urea Nitrogen 12mg/dL (7-20) Creatinine 0.7mg/dL (0.6-1.0) Estimated GFR (Cockcroft-Gault) 80.7 Glucose Level 127mg/dL (70-99) Calcium Level 8.8mg/dL (8.5-10.1) Total Bilirubin 0.4mg/dL (0.2-1.0) Direct Bilirubin 0.1mg/dL (0.0-0.2) Aspartate Amino Transf (AST/SGOT) 18U/L (15-37) Alanine Aminotransferase (ALT/SGPT) 16U/L (14-59) Alkaline Phosphatase 106U/L (46-116) Total Protein 6.9g/dL (6.4-8.2) Albumin 2.9g/dL (3.4-5.0) Test 08/20/16 00:28 08/20/16 05:20 08/20/16 07:25 Troponin I Quantitative 0.082ng/mL (0.000-0.055) 0.105ng/mL (0.000-0.055) White Blood Count 10.0x10^3/uL (4.0-11.0) Red Blood Count 4.32x10^6/uL (3.50-5.40) Hemoglobin 13.8g/dL (12.0-15.5) Hematocrit 43.3% (36.0-47.0) Mean Corpuscular Volume 100fL (79-100) Mean Corpuscular Hemoglobin 32pg (25-35) Mean Corpuscular Hemoglobin Concent 32g/dL (31-37) Red Cell Distribution Width 13.3% (11.5-14.5) Platelet Count 181x10^3/uL (140-400) Neutrophils (%) (Auto) 88% (31-73) Lymphocytes (%) (Auto) 7% (24-48) Monocytes (%) (Auto) 5% (0-9) Eosinophils (%) (Auto) 0% (0-3) Basophils (%) (Auto) 0% (0-3) Neutrophils # (Auto) 8.8x10^3uL (1.8-7.7) Lymphocytes # (Auto) 0.7x10^3/uL (1.0-4.8) Monocytes # (Auto) 0.5x10^3/uL (0.0-1.1) Eosinophils # (Auto) 0.0x10^3/uL (0.0-0.7) Basophils # (Auto) 0.0x10^3/uL (0.0-0.2) Sodium Level 139mmol/L (136-145) Potassium Level 4.6mmol/L (3.5-5.1) Chloride Level 101mmol/L (98-107) Carbon Dioxide Level 41mmol/L (21-32) Anion Gap (6-14) Blood Urea Nitrogen 12mg/dL (7-20) Creatinine 0.5mg/dL (0.6-1.0) Estimated GFR (Cockcroft-Gault) 119.0 Glucose Level 102mg/dL (70-99) Calcium Level 8.8mg/dL (8.5-10.1) O2 Saturation 97% (92-99) Arterial Blood pH 7.19 (7.35-7.45) Arterial Blood pCO2 at Patient Temp 115mmHg (35-46) Arterial Blood pO2 at Patient Temp 105mmHg (65-108) Arterial Blood HCO3 43mmol/L (21-28) Arterial Blood Base Excess 10mmol/L (-3-3) FiO2 36 Medications Current Medications Ondansetron HCl (Zofran) 4 mg PRN Q8HRS PRN IV NAUSEA/VOMITING; Start 08/19/16 at 14:00; Stop 08/20/16 at 13:59 Acetaminophen (Tylenol) 650 mg PRN Q4HRS PRN PO FEVER; Start 08/19/16 at 14:00 ; Stop 08/20/16 at 13:59 Acetaminophen (Tylenol) 325 mg PRN Q6HRS PRN PO MILD PAIN / TEMP; Start at 18:15 Acetaminophen/ Hydrocodone Bitart (Lortab 5/325) 1 tab PRN Q6HRS PRN PO MODERATE TO SEVERE PAIN; Start 08/19/16 at 18:15 Hydralazine HCl (Apresoline) 10 mg PRN Q4HRS PRN IVP ELEVATED BP, SEE COMMENTS ; Start 08/19/16 at 18:15 Ondansetron HCl (Zofran) 4 mg PRN Q8HRS PRN IV NAUSEA/VOMITING; Start 08/19/16 at 18:15 Albuterol Sulfate 2.5 mg 2.5 mg PRN Q4HRS PRN NEB SHORTNESS OF BREATH Last administered on 08/19/16 19:23; Start 08/19/16 at 18:15 Sodium Chloride (Iv Sodium Chloride 0.9% 1000ml Bag) 1,000 ml @ 75 mls/hr [id number] IV Last administered on 08/20/16 09:52; Start 08/19/16 at 18:15 Vitamin D (Vitamin D3) 1,000 unit BID PO ; Start 08/20/16 at 09:00 Metoprolol Tartrate (Lopressor) 50 mg BID PO Last administered on 08/20/16 09: 00; Start 08/20/16 at 09:00 Active Scripts Active Tramadol Hcl 50 Mg Tablet 1 Tab PO PRN Q6HRS PRN Prednisone 10 Mg Tablet 10 Mg PO UD Take 3 tablets by mouth daily for 3 days, then take 2 tablets by mouth daily for 3 days, then take 1 tablet by mouth daily for 3 days, then stop. Levaquin (Levofloxacin) 250 Mg Tablet 250 Mg PO DAILY06 Amox Tr-K Clv 500-125 Mg Tab (Amoxicillin/Potassium Clav) 1 Each Tablet 1 Tab PO BID Reported Vitamin B-6 (Pyridoxine Hcl) 50 Mg Tablet 50 Mg PO Ranitidine Hcl 300 Mg Capsule 1 Cap PO DAILY Alendronate Sodium 70 Mg Tablet 1 Tab PO WEEKLY Kaopectate (Bismuth Subsalicylate) 262 Mg/15 Ml Oral.susp 30 Ml PO PRN Q8HRS PRN Mag-Al Plus Xs Suspension (Mag Hydrox/Al Hydrox/Simeth) 30 Ml Oral.susp 30 Ml PO PRN Q4HRS PRN Albuterol Sulfate Neb Soln (Albuterol Sulfate) 2.5 Mg/3 Ml Vial.neb 2.5 Mg NEB PRN Q6HRS PRN Vitamin D3 (Cholecalciferol (Vitamin D3)) 1,000 Unit Tablet 1,000 Unit PO BID Dulcolax (Bisacodyl) 10 Mg Supp.rect 10 Mg RC PRN DAILY PRN Fleet Enema (Na Phos,M-B/Na Phos,Di-Ba) 133 Ml Enema 1 Each RC PRN PRN Tylenol (Acetaminophen) 325 Mg Tablet 2 Tab PO PRN Q6HRS PRN Zolpidem Tartrate 5 Mg Tablet 1 Tab PO PRN QHS PRN Spiriva (Tiotropium [place]) 18 Mcg Cap.w.dev 1 Cap IH DAILY Symbicort 160-4.5 Mcg Inhaler (Budesonide/Formoterol Fumarate) 10.2 Gm Hfa.aer.ad 2 Puff IH BID Proair Hfa Inhaler (Albuterol Sulfate) 8.5 Gm Hfa.aer.ad 2 Puff INH PRN Q6HRS PRN Metoprolol Tartrate 50 Mg Tablet 1 Tab PO BID Clopidogrel (Clopidogrel Bisulfate) 75 Mg Tablet 1 Tab PO DAILY Lasix (Furosemide) 20 Mg Tablet 1 Tab PO DAILY Vitals/I & O Vital Sign - Last 24 Hours 08/19/16 08/19/16 08/19/16 08/19/16 11:13 11:53 12:13 12:33 Temp 98.1 98.1 Pulse 99 96 92 92 Resp 26 B/P 132/60 115/55 134/71 127/59 Pulse Ox 94 96 95 97 O2 Delivery Nasal Cannula Nasal Cannula Nasal Cannula Nasal Cannula O2 Flow Rate 3 3 3 3 08/19/16 08/19/16 08/19/16 08/19/16 12:53 13:13 13:43 14:13 Pulse 86 90 98 92 Resp 26 B/P 113/56 127/57 124/61 116/58 Pulse Ox 97 94 94 94 O2 Delivery Nasal Cannula Nasal Cannula Nasal Cannula Nasal Cannula O2 Flow Rate 3 3 4 4 08/19/16 08/19/16 08/19/16 08/19/16 14:33 15:07 15:37 16:07 Pulse 92 88 98 90 Resp 24 30 34 B/P 115/56 113/56 129/58 122/57 Pulse Ox 94 94 93 93 O2 Delivery Nasal Cannula Nasal Cannula Nasal Cannula Nasal Cannula O2 Flow Rate 4 4 4 4 08/19/16 08/19/16 08/19/16 08/19/16 17:07 18:07 19:07 19:24 Pulse 106 96 102 Resp 38 42 40 B/P 122/60 117/57 135/62 Pulse Ox 93 96 94 93 O2 Delivery Nasal Cannula Nasal Cannula Nasal Cannula Nasal Cannula O2 Flow Rate 3 3 3 3.0 08/19/16 08/19/16 08/20/16 08/20/16 21:27 23:00 00:32 03:10 Temp 96.9 98.0 96.9 98.0 Pulse 85 89 114 Resp 18 18 22 B/P 134/59 132/62 138/63 Pulse Ox 95 92 96 O2 Delivery Room Air Nasal Cannula Nasal Cannula O2 Flow Rate 3.0 4.0 3.0 08/20/16 08/20/16 08/20/16 08/20/16 08:00 08:00 09:00 09:09 Temp 99.0 99.0 Pulse 128 130 Resp 28 B/P 139/66 139/66 Pulse Ox 95 93 O2 Delivery Venturi Mask Mask BiPAP/CPAP O2 Flow Rate 3.0 4.0 Intake and Output 08/19/16 08/19/16 08/20/16 15:00 23:00 07:00 Output Total 1 ml Balance -1 ml LEXY ARRINGTON MD Aug 20, 2016 10:14
[2016-08-20 11:00] VITALS: BP 119/66
[2016-08-20 11:00] LABS: PLT ESTIMATE ADEQUATE (ADEQUATE)
[2016-08-20 11:11] LABS: CHOLESTEROL/HDL RATIO 2.6
[2016-08-20 11:13] LABS: HCO3 ABG 32 mmol/L (21-28); PH ABG 7.32 (7.35-7.45); PO2 ABG 57 mmHg (65-108); SAT O2 ABG 89 % (92-99)
[2016-08-20 11:16] LABS: PCO2 ABG 64 mmHg (35-46)
--- NOTE | 2016-08-20 11:22 | PDOC2 ---
NEUROLOGY CONSULT Date of Admission Date of Admission DATE: 08/20/16 TIME: 11:14 Reason for Consult Reason for Consult: Altered mental status Referring Physician Referring Physician: Dr. Paz PCP: Dr. Krause Source Source: Chart review History of Present Illness History of Present Illness The patient is a 81-year-old right-handed female brought in with dysarthria and altered mental status. She has been founded be invested to a failure. I saw her 5 months ago when she was admitted with altered mental status. I felt that she had new onset of dementia but she did have low B12 levels and elevated TSH levels. I was unable to reach family members. Past Medical History Cardiovascular: HTN Pulmonary: COPD CENTRAL NERVOUS SYSTEM: CVA Past Surgical History Past Surgical History: Other ( metal [place], right leg, fracture) Family History Family History: No pertinent hx Social History Social History , nonsmoker, nondrinker Current Medications Current Medications Current Medications Ondansetron HCl (Zofran) 4 mg PRN Q8HRS PRN IV NAUSEA/VOMITING; Start 08/19/16 at 14:00; Stop 08/20/16 at 13:59 Acetaminophen (Tylenol) 650 mg PRN Q4HRS PRN PO FEVER; Start 08/19/16 at 14:00 ; Stop 08/20/16 at 13:59 Acetaminophen (Tylenol) 325 mg PRN Q6HRS PRN PO MILD PAIN / TEMP; Start at 18:15 Acetaminophen/ Hydrocodone Bitart (Lortab 5/325) 1 tab PRN Q6HRS PRN PO MODERATE TO SEVERE PAIN; Start 08/19/16 at 18:15 Hydralazine HCl (Apresoline) 10 mg PRN Q4HRS PRN IVP ELEVATED BP, SEE COMMENTS ; Start 08/19/16 at 18:15 Ondansetron HCl (Zofran) 4 mg PRN Q8HRS PRN IV NAUSEA/VOMITING; Start 08/19/16 at 18:15 Albuterol Sulfate 2.5 mg 2.5 mg PRN Q4HRS PRN NEB SHORTNESS OF BREATH Last administered on 08/19/16t 19:23; Start 08/19/16 at 18:15 Sodium Chloride (Iv Sodium Chloride 0.9% 1000ml Bag) 1,000 ml @ 75 mls/hr [id number] IV Last administered on 08/20/16 09:52; Start 08/19/16 at 18:15 Vitamin D (Vitamin D3) 1,000 unit BID PO ; Start 08/20/16 at 09:00 Metoprolol Tartrate (Lopressor) 50 mg BID PO Last administered on 08/20/16 09: 00; Start 08/20/16 at 09:00 Active Scripts Active Tramadol Hcl 50 Mg Tablet 1 Tab PO PRN Q6HRS PRN Prednisone 10 Mg Tablet 10 Mg PO UD Take 3 tablets by mouth daily for 3 days, then take 2 tablets by mouth daily for 3 days, then take 1 tablet by mouth daily for 3 days, then stop. Levaquin (Levofloxacin) 250 Mg Tablet 250 Mg PO DAILY06 Amox Tr-K Clv 500-125 Mg Tab (Amoxicillin/Potassium Clav) 1 Each Tablet 1 Tab PO BID Reported Vitamin B-6 (Pyridoxine Hcl) 50 Mg Tablet 50 Mg PO Ranitidine Hcl 300 Mg Capsule 1 Cap PO DAILY Alendronate Sodium 70 Mg Tablet 1 Tab PO WEEKLY Kaopectate (Bismuth Subsalicylate) 262 Mg/15 Ml Oral.susp 30 Ml PO PRN Q8HRS PRN Mag-Al Plus Xs Suspension (Mag Hydrox/Al Hydrox/Simeth) 30 Ml Oral.susp 30 Ml PO PRN Q4HRS PRN Albuterol Sulfate Neb Soln (Albuterol Sulfate) 2.5 Mg/3 Ml Vial.neb 2.5 Mg NEB PRN Q6HRS PRN Vitamin D3 (Cholecalciferol (Vitamin D3)) 1,000 Unit Tablet 1,000 Unit PO BID Dulcolax (Bisacodyl) 10 Mg Supp.rect 10 Mg RC PRN DAILY PRN Fleet Enema (Na Phos,M-B/Na Phos,Di-Ba) 133 Ml Enema 1 Each RC PRN PRN Tylenol (Acetaminophen) 325 Mg Tablet 2 Tab PO PRN Q6HRS PRN Zolpidem Tartrate 5 Mg Tablet 1 Tab PO PRN QHS PRN Spiriva (Tiotropium [place]) 18 Mcg Cap.w.dev 1 Cap IH DAILY Symbicort 160-4.5 Mcg Inhaler (Budesonide/Formoterol Fumarate) 10.2 Gm Hfa.aer.ad 2 Puff IH BID Proair Hfa Inhaler (Albuterol Sulfate) 8.5 Gm Hfa.aer.ad 2 Puff INH PRN Q6HRS PRN Metoprolol Tartrate 50 Mg Tablet 1 Tab PO BID Clopidogrel (Clopidogrel Bisulfate) 75 Mg Tablet 1 Tab PO DAILY Lasix (Furosemide) 20 Mg Tablet 1 Tab PO DAILY Allergies Allergies: Coded Allergies: No Known Drug Allergies (Unverified , 03/03/16) ROS Review of System Unobtainable Physical Exam Physical Examination PHYSICAL EXAMINATION: Vital signs: see above. General appearance is normal and in no acute distress. HEENT: Normocephalic and nontraumatic. Eyes, nose, ears, and throat are unremarkable. Neck is supple. No lymphadenopathy. No bruits are heard over the carotid artery. No crepitus. NEUROLOGIC: Eyes open to voice, pupils react, moves arms to commands, not legs. D.T.R.s 1+, plantars flexor, not cooperative with cerebellar or sensory testing. Vitals VITALS Vital Signs Date Time Temp Pulse Resp B/P Pulse Ox O2 Delivery O2 Flow Rate FiO2 08/20/16 10:59 100 BiPAP/CPAP 08/20/16 09:00 130 139/66 08/20/16 08:00 4.0 08/20/16 08:00 99.0 28 99.0 Labs Labs Laboratory Tests Test 08/19/16 11:16 08/19/16 11:20 08/19/16 12:05 08/19/16 17:55 Glucose (Fingerstick) 121mg/dL (70-99) White Blood Count 10.2x10^3/uL (4.0-11.0) Red Blood Count 4.52x10^6/uL (3.50-5.40) Hemoglobin 14.5g/dL (12.0-15.5) Hematocrit 43.7% (36.0-47.0) Mean Corpuscular Volume 97fL (79-100) Mean Corpuscular Hemoglobin 32pg (25-35) Mean Corpuscular Hemoglobin Concent 33g/dL (31-37) Red Cell Distribution Width 13.1% (11.5-14.5) Platelet Count 235x10^3/uL (140-400) Neutrophils (%) (Auto) 80% (31-73) Lymphocytes (%) (Auto) 12% (24-48) Monocytes (%) (Auto) 7% (0-9) Eosinophils (%) (Auto) 1% (0-3) Basophils (%) (Auto) 0% (0-3) Neutrophils # (Auto) 8.1x10^3uL (1.8-7.7) Lymphocytes # (Auto) 1.2x10^3/uL (1.0-4.8) Monocytes # (Auto) 0.8x10^3/uL (0.0-1.1) Eosinophils # (Auto) 0.1x10^3/uL (0.0-0.7) Basophils # (Auto) 0.0x10^3/uL (0.0-0.2) Prothrombin Time 12.5SEC (11.7-14.0) Prothromb Time International Ratio 1.0 (0.8-1.1) Activated Partial Thromboplast Time 29SEC (24-38) Troponin I Quantitative 0.074ng/mL (0.000-0.055) 0.060ng/mL (0.000-0.055) Sodium Level 142mmol/L (136-145) Potassium Level 4.6mmol/L (3.5-5.1) Chloride Level 101mmol/L (98-107) Carbon Dioxide Level 44mmol/L (21-32) Anion Gap (6-14) Blood Urea Nitrogen 12mg/dL (7-20) Creatinine 0.7mg/dL (0.6-1.0) Estimated GFR (Cockcroft-Gault) 80.7 Glucose Level 127mg/dL (70-99) Calcium Level 8.8mg/dL (8.5-10.1) Total Bilirubin 0.4mg/dL (0.2-1.0) Direct Bilirubin 0.1mg/dL (0.0-0.2) Aspartate Amino Transf (AST/SGOT) 18U/L (15-37) Alanine Aminotransferase (ALT/SGPT) 16U/L (14-59) Alkaline Phosphatase 106U/L (46-116) Total Protein 6.9g/dL (6.4-8.2) Albumin 2.9g/dL (3.4-5.0) Test 08/20/16 00:28 08/20/16 05:20 2/22/17 07:25 Troponin I Quantitative 0.082ng/mL (0.000-0.055) 0.105ng/mL (0.000-0.055) White Blood Count 10.0x10^3/uL (4.0-11.0) Red Blood Count 4.32x10^6/uL (3.50-5.40) Hemoglobin 13.8g/dL (12.0-15.5) Hematocrit 43.3% (36.0-47.0) Mean Corpuscular Volume 100fL (79-100) Mean Corpuscular Hemoglobin 32pg (25-35) Mean Corpuscular Hemoglobin Concent 32g/dL (31-37) Red Cell Distribution Width 13.3% (11.5-14.5) Platelet Count 181x10^3/uL (140-400) Neutrophils (%) (Auto) 88% (31-73) Lymphocytes (%) (Auto) 7% (24-48) Monocytes (%) (Auto) 5% (0-9) Eosinophils (%) (Auto) 0% (0-3) Basophils (%) (Auto) 0% (0-3) Neutrophils # (Auto) 8.8x10^3uL (1.8-7.7) Lymphocytes # (Auto) 0.7x10^3/uL (1.0-4.8) Monocytes # (Auto) 0.5x10^3/uL (0.0-1.1) Eosinophils # (Auto) 0.0x10^3/uL (0.0-0.7) Basophils # (Auto) 0.0x10^3/uL (0.0-0.2) Segmented Neutrophils % 93% (35-66) Band Neutrophils % 2% (0-9) Lymphocytes % 2% (24-48) Monocytes % 3% (0-10) Platelet Estimate Adequate (ADEQUATE) Sodium Level 139mmol/L (136-145) Potassium Level 4.6mmol/L (3.5-5.1) Chloride Level 101mmol/L (98-107) Carbon Dioxide Level 41mmol/L (21-32) Anion Gap (6-14) Blood Urea Nitrogen 12mg/dL (7-20) Creatinine 0.5mg/dL (0.6-1.0) Estimated GFR (Cockcroft-Gault) 119.0 Glucose Level 102mg/dL (70-99) Calcium Level 8.8mg/dL (8.5-10.1) Triglycerides Level 75mg/dL (0-150) Cholesterol Level 159mg/dL (0-200) LDL Cholesterol, Calculated 83mg/dL (0-100) VLDL Cholesterol, Calculated 15mg/dL (0-40) HDL Cholesterol 61mg/dL (40-60) Cholesterol/HDL Ratio 2.6 O2 Saturation 97% (92-99) Arterial Blood pH 7.19 (7.35-7.45) Arterial Blood pCO2 at Patient Temp 115mmHg (35-46) Arterial Blood pO2 at Patient Temp 105mmHg (65-108) Arterial Blood HCO3 43mmol/L (21-28) Arterial Blood Base Excess 10mmol/L (-3-3) FiO2 36 Laboratory Tests Test 08/19/16 11:16 08/19/16 11:20 08/19/16 12:05 08/19/16 17:55 Glucose (Fingerstick) 121mg/dL (70-99) White Blood Count 10.2x10^3/uL (4.0-11.0) Red Blood Count 4.52x10^6/uL (3.50-5.40) Hemoglobin 14.5g/dL (12.0-15.5) Hematocrit 43.7% (36.0-47.0) Mean Corpuscular Volume 97fL (79-100) Mean Corpuscular Hemoglobin 32pg (25-35) Mean Corpuscular Hemoglobin Concent 33g/dL (31-37) Red Cell Distribution Width 13.1% (11.5-14.5) Platelet Count 235x10^3/uL (140-400) Neutrophils (%) (Auto) 80% (31-73) Lymphocytes (%) (Auto) 12% (24-48) Monocytes (%) (Auto) 7% (0-9) Eosinophils (%) (Auto) 1% (0-3) Basophils (%) (Auto) 0% (0-3) Neutrophils # (Auto) 8.1x10^3uL (1.8-7.7) Lymphocytes # (Auto) 1.2x10^3/uL (1.0-4.8) Monocytes # (Auto) 0.8x10^3/uL (0.0-1.1) Eosinophils # (Auto) 0.1x10^3/uL (0.0-0.7) Basophils # (Auto) 0.0x10^3/uL (0.0-0.2) Prothrombin Time 12.5SEC (11.7-14.0) Prothromb Time International Ratio 1.0 (0.8-1.1) Activated Partial Thromboplast Time 29SEC (24-38) Troponin I Quantitative 0.074ng/mL (0.000-0.055) 0.060ng/mL (0.000-0.055) Sodium Level 142mmol/L (136-145) Potassium Level 4.6mmol/L (3.5-5.1) Chloride Level 101mmol/L (98-107) Carbon Dioxide Level 44mmol/L (21-32) Anion Gap (6-14) Blood Urea Nitrogen 12mg/dL (7-20) Creatinine 0.7mg/dL (0.6-1.0) Estimated GFR (Cockcroft-Gault) 80.7 Glucose Level 127mg/dL (70-99) Calcium Level 8.8mg/dL (8.5-10.1) Total Bilirubin 0.4mg/dL (0.2-1.0) Direct Bilirubin 0.1mg/dL (0.0-0.2) Aspartate Amino Transf (AST/SGOT) 18U/L (15-37) Alanine Aminotransferase (ALT/SGPT) 16U/L (14-59) Alkaline Phosphatase 106U/L (46-116) Total Protein 6.9g/dL (6.4-8.2) Albumin 2.9g/dL (3.4-5.0) Test 08/20/16 00:28 08/20/16 05:20 08/20/16 07:25 Troponin I Quantitative 0.082ng/mL (0.000-0.055) 0.105ng/mL (0.000-0.055) White Blood Count 10.0x10^3/uL (4.0-11.0) Red Blood Count 4.32x10^6/uL (3.50-5.40) Hemoglobin 13.8g/dL (12.0-15.5) Hematocrit 43.3% (36.0-47.0) Mean Corpuscular Volume 100fL (79-100) Mean Corpuscular Hemoglobin 32pg (25-35) Mean Corpuscular Hemoglobin Concent 32g/dL (31-37) Red Cell Distribution Width 13.3% (11.5-14.5) Platelet Count 181x10^3/uL (140-400) Neutrophils (%) (Auto) 88% (31-73) Lymphocytes (%) (Auto) 7% (24-48) Monocytes (%) (Auto) 5% (0-9) Eosinophils (%) (Auto) 0% (0-3) Basophils (%) (Auto) 0% (0-3) Neutrophils # (Auto) 8.8x10^3uL (1.8-7.7) Lymphocytes # (Auto) 0.7x10^3/uL (1.0-4.8) Monocytes # (Auto) 0.5x10^3/uL (0.0-1.1) Eosinophils # (Auto) 0.0x10^3/uL (0.0-0.7) Basophils # (Auto) 0.0x10^3/uL (0.0-0.2) Segmented Neutrophils % 93% (35-66) Band Neutrophils % 2% (0-9) Lymphocytes % 2% (24-48) Monocytes % 3% (0-10) Platelet Estimate Adequate (ADEQUATE) Sodium Level 139mmol/L (136-145) Potassium Level 4.6mmol/L (3.5-5.1) Chloride Level 101mmol/L (98-107) Carbon Dioxide Level 41mmol/L (21-32) Anion Gap (6-14) Blood Urea Nitrogen 12mg/dL (7-20) Creatinine 0.5mg/dL (0.6-1.0) Estimated GFR (Cockcroft-Gault) 119.0 Glucose Level 102mg/dL (70-99) Calcium Level 8.8mg/dL (8.5-10.1) Triglycerides Level 75mg/dL (0-150) Cholesterol Level 159mg/dL (0-200) LDL Cholesterol, Calculated 83mg/dL (0-100) VLDL Cholesterol, Calculated 15mg/dL (0-40) HDL Cholesterol 61mg/dL (40-60) Cholesterol/HDL Ratio 2.6 O2 Saturation 97% (92-99) Arterial Blood pH 7.19 (7.35-7.45) Arterial Blood pCO2 at Patient Temp 115mmHg (35-46) Arterial Blood pO2 at Patient Temp 105mmHg (65-108) Arterial Blood HCO3 43mmol/L (21-28) Arterial Blood Base Excess 10mmol/L (-3-3) FiO2 [address]: Comparison is made to a study from 06/29/2016. A moderate-sized area of encephalomalacia is again noted centered in the left parietal region compatible with an old infarct. There are mild additional patchy lucencies in the deep white matter bilaterally compatible with chronic ischemic change. There is cerebral atrophy. A small unchanged lucency in the posterior aspect of the right cerebellar hemisphere suggests a small old infarct. The ventricles are within normal limits in size. There is no shift of the midline structures. There is no evidence of acute intracranial hemorrhage or mass effect. Basal ganglia calcifications are present. IMPRESSION: 1. Chronic findings as described above. 2. No acute intracranial abnormality is detected. Assessment/Plan Assessment/Plan Impression: Metabolic encephalopathy Prior dementia Prior B-12 deficiency History of stroke Recommendations: Treat medical diseases Await MRI results Thank you for letting me help the patient care. RUIZ POSADAS MD Aug 20, 2016 11:22
[2016-08-20 12:18] LABS: FREE T4 1.49 ng/dL (0.76-1.46)
[2016-08-20 15:32] LABS: HCO3 ABG 36 mmol/L (21-28); PCO2 ABG 58 mmHg (35-46); PH ABG 7.41 (7.35-7.45); PO2 ABG 68 mmHg (65-108); SAT O2 ABG 94 % (92-99)
[2016-08-20 15:33] LABS: FIO2 ABG 40
[2016-08-20 15:39] VITALS: BP 111/56
[2016-08-20 19:51] VITALS: BP 138/64
[2016-08-20] MEDS ORDERED: ALBUTEROL SULFATE 2.5 MG/3 ML NEBU. NEB PRN (22:00)
[2016-08-20] MEDS ORDERED: NON FORMULARY ITEM (Albuterol Sulfate (Proair Hfa Inhaler) 2 PUFF) INH PRN (22:00)
[2016-08-20 23:18] VITALS: BP 146/68
[2016-08-21] VITALS (7 sets, daily range): BP systolic 107–147; BP diastolic 46–72
[2016-08-21] MEDS: IV NORMAL SALINE 1000ML BAG 1,000 ML IV SCH (04:14)
[2016-08-21] MEDS: ACETAMINOPHEN 325 MG TABLET. PO PRN (04:14)
[2016-08-21 04:52] LABS: CALCIUM 8.9 mg/dL (8.5-10.1); CREATININE 0.6 mg/dL (0.6-1.0); GFR 96.4; POTASSIUM 4.6 mmol/L (3.5-5.1)
[2016-08-21 04:55] LABS: BASO % 0 % (0-3); EOS % 0 % (0-3); HEMATOCRIT 39.9 % (36.0-47.0); HEMOGLOBIN 12.9 g/dL (12.0-15.5); LYMPH % 9 % (24-48); MEAN CORPUSCULAR HEMOGLOBIN 32 pg (25-35); MEAN CORPUSCULAR HGB CONC 32 g/dL (31-37); MEAN CORPUSCULAR VOLUME 100 fL (79-100); MONO % 6 % (0-9); NEUT % 85 % (31-73); PLATELET COUNT 157 x10^3/uL (140-400); RED BLOOD COUNT 4.01 x10^6/uL (3.50-5.40); RED CELL DISTRIBUTION WIDTH 13.3 % (11.5-14.5); WHITE BLOOD COUNT 10.8 x10^3/uL (4.0-11.0)
[2016-08-21] MEDS: METOPROLOL TART IMMED RELEASE 50 MG TABLET PO SCH (09:00)
[2016-08-21] MEDS: PREDNISONE 10 MG TABLET PO SCH (09:00)
[2016-08-21] MEDS ORDERED: NON FORMULARY ITEM (Tiotropium Bromide (Spiriva) 1 CAP) IH SCH (09:00)
[2016-08-21] MEDS: IPRATRPIUM/ALBUTEROL 0.5/2.5MG 3 ML NEBU. NEB SCH ×4 (09:00→19:30)
[2016-08-21] MEDS ORDERED: NON FORMULARY ITEM (Budesonide/Formoterol Fumarate (Symbicort 160-4.5 Mcg Inhaler) 2 PUFF) IH SCH (09:00)
[2016-08-21] MEDS: CHOLECALCIFEROL (VITAMIN D3) 1,000 UNIT TABLET PO SCH ×2 (09:00→21:00)
[2016-08-21] MEDS: PYRIDOXINE 50 MG TABLET. PO SCH (09:00)
--- NOTE | 2016-08-21 09:15 | PDOC ---
PROGRESS NOTES Assessment Problems Medical Problems: (1) Altered mental status Status: Acute (2) Dysphasia Status: Acute (3) Elevated troponin Status: Acute Metabolic encephalopathy mainly due to hypercarbic respiratory failure, better Prior dementia Prior B-12 deficiency, discussed with daughter, patient has been getting B12 shots History of stroke Plan Treat medical diseases Await MRI results Subjective no complaints Objective Vital Signs Date Time Temp Pulse Resp B/P Pulse Ox O2 Delivery O2 Flow Rate FiO2 08/21/16 07:52 97.1 74 20 110/54 95 BiPAP/CPAP 97.1 08/20/16 23:18 12.0 Intake and Output 08/21/16 07:00 Intake Total 2460 ml Balance 2460 ml Intake Oral 410 ml IV Total 1150 ml Blood Product IV Normal Saline Flush 900 ml # Voids 6 PHYSICAL EXAM On BiPAP Alert. Oriented to place and person. PERRL. EOMI. CN: no focal findings. Muscle tone: normal. Muscle strength: 4/5 DTR: 1+ Plantar reflex: flexor Gait: not examined in bed. Sensory exam: no abnormal findings. No cerebellar signs elicited. Review of Relevant I have reviewed the following items ana laura (where applicable) has been applied. Labs Laboratory Tests Test 08/19/16 11:16 08/19/16 11:20 08/19/16 12:05 08/19/16 17:55 Glucose (Fingerstick) 121mg/dL (70-99) White Blood Count 10.2x10^3/uL (4.0-11.0) Red Blood Count 4.52x10^6/uL (3.50-5.40) Hemoglobin 14.5g/dL (12.0-15.5) Hematocrit 43.7% (36.0-47.0) Mean Corpuscular Volume 97fL (79-100) Mean Corpuscular Hemoglobin 32pg (25-35) Mean Corpuscular Hemoglobin Concent 33g/dL (31-37) Red Cell Distribution Width 13.1% (11.5-14.5) Platelet Count 235x10^3/uL (140-400) Neutrophils (%) (Auto) 80% (31-73) Lymphocytes (%) (Auto) 12% (24-48) Monocytes (%) (Auto) 7% (0-9) Eosinophils (%) (Auto) 1% (0-3) Basophils (%) (Auto) 0% (0-3) Neutrophils # (Auto) 8.1x10^3uL (1.8-7.7) Lymphocytes # (Auto) 1.2x10^3/uL (1.0-4.8) Monocytes # (Auto) 0.8x10^3/uL (0.0-1.1) Eosinophils # (Auto) 0.1x10^3/uL (0.0-0.7) Basophils # (Auto) 0.0x10^3/uL (0.0-0.2) Prothrombin Time 12.5SEC (11.7-14.0) Prothromb Time International Ratio 1.0 (0.8-1.1) Activated Partial Thromboplast Time 29SEC (24-38) Troponin I Quantitative 0.074ng/mL (0.000-0.055) 0.060ng/mL (0.000-0.055) Sodium Level 142mmol/L (136-145) Potassium Level 4.6mmol/L (3.5-5.1) Chloride Level 101mmol/L (98-107) Carbon Dioxide Level 44mmol/L (21-32) Anion Gap (6-14) Blood Urea Nitrogen 12mg/dL (7-20) Creatinine 0.7mg/dL (0.6-1.0) Estimated GFR (Cockcroft-Gault) 80.7 Glucose Level 127mg/dL (70-99) Calcium Level 8.8mg/dL (8.5-10.1) Total Bilirubin 0.4mg/dL (0.2-1.0) Direct Bilirubin 0.1mg/dL (0.0-0.2) Aspartate Amino Transf (AST/SGOT) 18U/L (15-37) Alanine Aminotransferase (ALT/SGPT) 16U/L (14-59) Alkaline Phosphatase 106U/L (46-116) Total Protein 6.9g/dL (6.4-8.2) Albumin 2.9g/dL (3.4-5.0) Test 08/19/16 20:55 08/20/16 00:28 08/20/16 05:20 08/20/16 07:25 Nasal Screen MRSA (PCR) Negative (Negative) Troponin I Quantitative 0.082ng/mL (0.000-0.055) 0.105ng/mL (0.000-0.055) White Blood Count 10.0x10^3/uL (4.0-11.0) Red Blood Count 4.32x10^6/uL (3.50-5.40) Hemoglobin 13.8g/dL (12.0-15.5) Hematocrit 43.3% (36.0-47.0) Mean Corpuscular Volume 100fL (79-100) Mean Corpuscular Hemoglobin 32pg (25-35) Mean Corpuscular Hemoglobin Concent 32g/dL (31-37) Red Cell Distribution Width 13.3% (11.5-14.5) Platelet Count 181x10^3/uL (140-400) Neutrophils (%) (Auto) 88% (31-73) Lymphocytes (%) (Auto) 7% (24-48) Monocytes (%) (Auto) 5% (0-9) Eosinophils (%) (Auto) 0% (0-3) Basophils (%) (Auto) 0% (0-3) Neutrophils # (Auto) 8.8x10^3uL (1.8-7.7) Lymphocytes # (Auto) 0.7x10^3/uL (1.0-4.8) Monocytes # (Auto) 0.5x10^3/uL (0.0-1.1) Eosinophils # (Auto) 0.0x10^3/uL (0.0-0.7) Basophils # (Auto) 0.0x10^3/uL (0.0-0.2) Segmented Neutrophils % 93% (35-66) Band Neutrophils % 2% (0-9) Lymphocytes % 2% (24-48) Monocytes % 3% (0-10) Platelet Estimate Adequate (ADEQUATE) Sodium Level 139mmol/L (136-145) Potassium Level 4.6mmol/L (3.5-5.1) Chloride Level 101mmol/L (98-107) Carbon Dioxide Level 41mmol/L (21-32) Anion Gap (6-14) Blood Urea Nitrogen 12mg/dL (7-20) Creatinine 0.5mg/dL (0.6-1.0) Estimated GFR (Cockcroft-Gault) 119.0 Glucose Level 102mg/dL (70-99) Calcium Level 8.8mg/dL (8.5-10.1) Triglycerides Level 75mg/dL (0-150) Cholesterol Level 159mg/dL (0-200) LDL Cholesterol, Calculated 83mg/dL (0-100) VLDL Cholesterol, Calculated 15mg/dL (0-40) HDL Cholesterol 61mg/dL (40-60) Cholesterol/HDL Ratio 2.6 Thyroid Stimulating Hormone (TSH) 0.035uIU/mL (0.358-3.74) Free Thyroxine 1.49ng/dL (0.76-1.46) O2 Saturation 97% (92-99) Arterial Blood pH 7.19 (7.35-7.45) Arterial Blood pCO2 at Patient Temp 115mmHg (35-46) Arterial Blood pO2 at Patient Temp 105mmHg (65-108) Arterial Blood HCO3 43mmol/L (21-28) Arterial Blood Base Excess 10mmol/L (-3-3) FiO2 36 Test 08/20/16 11:00 08/20/16 15:00 08/21/16 04:05 O2 Saturation 89% (92-99) 94% (92-99) Arterial Blood pH 7.32 (7.35-7.45) 7.41 (7.35-7.45) Arterial Blood pCO2 at Patient Temp 64mmHg (35-46) 58mmHg (35-46) Arterial Blood pO2 at Patient Temp 57mmHg (65-108) 68mmHg (65-108) Arterial Blood HCO3 32mmol/L (21-28) 36mmol/L (21-28) Arterial Blood Base Excess 4mmol/L (-3-3) 9mmol/L (-3-3) FiO2 40 White Blood Count 10.8x10^3/uL (4.0-11.0) Red Blood Count 4.01x10^6/uL (3.50-5.40) Hemoglobin 12.9g/dL (12.0-15.5) Hematocrit 39.9% (36.0-47.0) Mean Corpuscular Volume 100fL (79-100) Mean Corpuscular Hemoglobin 32pg (25-35) Mean Corpuscular Hemoglobin Concent 32g/dL (31-37) Red Cell Distribution Width 13.3% (11.5-14.5) Platelet Count 157x10^3/uL (140-400) Neutrophils (%) (Auto) 85% (31-73) Lymphocytes (%) (Auto) 9% (24-48) Monocytes (%) (Auto) 6% (0-9) Eosinophils (%) (Auto) 0% (0-3) Basophils (%) (Auto) 0% (0-3) Neutrophils # (Auto) 9.1x10^3uL (1.8-7.7) Lymphocytes # (Auto) 1.0x10^3/uL (1.0-4.8) Monocytes # (Auto) 0.7x10^3/uL (0.0-1.1) Eosinophils # (Auto) 0.0x10^3/uL (0.0-0.7) Basophils # (Auto) 0.0x10^3/uL (0.0-0.2) Sodium Level 144mmol/L (136-145) Potassium Level 4.6mmol/L (3.5-5.1) Chloride Level 104mmol/L (98-107) Carbon Dioxide Level 40mmol/L (21-32) Anion Gap 0 (6-14) Blood Urea Nitrogen 14mg/dL (7-20) Creatinine 0.6mg/dL (0.6-1.0) Estimated GFR (Cockcroft-Gault) 96.4 Glucose Level 86mg/dL (70-99) Calcium Level 8.9mg/dL (8.5-10.1) Laboratory Tests Test 08/20/16 11:00 08/20/16 15:00 08/21/16 04:05 O2 Saturation 89% (92-99) 94% (92-99) Arterial Blood pH 7.32 (7.35-7.45) 7.41 (7.35-7.45) Arterial Blood pCO2 at Patient Temp 64mmHg (35-46) 58mmHg (35-46) Arterial Blood pO2 at Patient Temp 57mmHg (65-108) 68mmHg (65-108) Arterial Blood HCO3 32mmol/L (21-28) 36mmol/L (21-28) Arterial Blood Base Excess 4mmol/L (-3-3) 9mmol/L (-3-3) FiO2 40 White Blood Count 10.8x10^3/uL (4.0-11.0) Red Blood Count 4.01x10^6/uL (3.50-5.40) Hemoglobin 12.9g/dL (12.0-15.5) Hematocrit 39.9% (36.0-47.0) Mean Corpuscular Volume 100fL (79-100) Mean Corpuscular Hemoglobin 32pg (25-35) Mean Corpuscular Hemoglobin Concent 32g/dL (31-37) Red Cell Distribution Width 13.3% (11.5-14.5) Platelet Count 157x10^3/uL (140-400) Neutrophils (%) (Auto) 85% (31-73) Lymphocytes (%) (Auto) 9% (24-48) Monocytes (%) (Auto) 6% (0-9) Eosinophils (%) (Auto) 0% (0-3) Basophils (%) (Auto) 0% (0-3) Neutrophils # (Auto) 9.1x10^3uL (1.8-7.7) Lymphocytes # (Auto) 1.0x10^3/uL (1.0-4.8) Monocytes # (Auto) 0.7x10^3/uL (0.0-1.1) Eosinophils # (Auto) 0.0x10^3/uL (0.0-0.7) Basophils # (Auto) 0.0x10^3/uL (0.0-0.2) Sodium Level 144mmol/L (136-145) Potassium Level 4.6mmol/L (3.5-5.1) Chloride Level 104mmol/L (98-107) Carbon Dioxide Level 40mmol/L (21-32) Anion Gap 0 (6-14) Blood Urea Nitrogen 14mg/dL (7-20) Creatinine 0.6mg/dL (0.6-1.0) Estimated GFR (Cockcroft-Gault) 96.4 Glucose Level 86mg/dL (70-99) Calcium Level 8.9mg/dL (8.5-10.1) Medications Current Medications Ondansetron HCl (Zofran) 4 mg PRN Q8HRS PRN IV NAUSEA/VOMITING; Start 08/19/16 at 14:00; Stop 08/20/16 at 13:59; Status DC Acetaminophen (Tylenol) 650 mg PRN Q4HRS PRN PO FEVER; Start 08/19/16 at 14:00 ; Stop 08/20/16 at 13:59; Status DC Acetaminophen (Tylenol) 325 mg PRN Q6HRS PRN PO MILD PAIN / TEMP Last administered on 08/21/16 04:14; Start 08/19/16 at 18:15 Acetaminophen/ Hydrocodone Bitart (Lortab 5/325) 1 tab PRN Q6HRS PRN PO MODERATE TO SEVERE PAIN; Start 08/19/16 at 18:15 Hydralazine HCl (Apresoline) 10 mg PRN Q4HRS PRN IVP ELEVATED BP, SEE COMMENTS ; Start 08/19/16 at 18:15 Ondansetron HCl (Zofran) 4 mg PRN Q8HRS PRN IV NAUSEA/VOMITING; Start 08/19/16 at 18:15 Albuterol Sulfate 2.5 mg 2.5 mg PRN Q4HRS PRN NEB SHORTNESS OF BREATH Last administered on 08/19/16 19:23; Start 08/19/16 at 18:15; Stop 08/20/16 at 22:07 ; Status DC Sodium Chloride (Iv Sodium Chloride 0.9% 1000ml Bag) 1,000 ml @ 75 mls/hr [id number] IV Last administered on 08/21/16 04:14; Start 08/19/16 at 18:15 Vitamin D (Vitamin D3) 1,000 unit BID PO ; Start 08/20/16 at 09:00 Metoprolol Tartrate (Lopressor) 50 mg BID PO Last administered on 08/20/16 20: 50; Start 08/20/16 at 09:00 Albuterol Sulfate (Ventolin Neb Soln) 2.5 mg PRN Q6HRS PRN NEB SHORTNESS OF BREATH; Start 08/20/16 at 22:00 Clopidogrel Bisulfate (Plavix) 75 mg DAILY PO ; Start 08/21/16 at 09:00 Furosemide (Lasix) 20 mg DAILY PO ; Start 08/21/16 at 09:00 Prednisone (Prednisone) 10 mg DAILY PO ; Start 08/21/16 at 09:00 Pyridoxine HCl (Vitamin B-6) 50 mg DAILY PO ; Start 08/21/16 at 09:00 Non-Formulary Medication 2 puff PRN Q6HRS PRN INH SHORTNESS OF BREATH; Start at 22:00; Status UNV Non-Formulary Medication 2 puff BID IH ; Start 08/21/16 at 09:00; Status UNV Non-Formulary Medication 1 cap DAILY IH ; Start 08/21/16 at 09:00; Status UNV Budesonide (Pulmicort) 0.5 mg RTBID NEB ; Start 08/21/16 at 08:00 Albuterol/ Ipratropium (Duoneb) 3 ml RTQID NEB ; Start 08/21/16 at 08:00 Active Scripts Active Tramadol Hcl 50 Mg Tablet 1 Tab PO PRN Q6HRS PRN Prednisone 10 Mg Tablet 10 Mg PO UD Take 3 tablets by mouth daily for 3 days, then take 2 tablets by mouth daily for 3 days, then take 1 tablet by mouth daily for 3 days, then stop. Levaquin (Levofloxacin) 250 Mg Tablet 250 Mg PO DAILY06 Amox Tr-K Clv 500-125 Mg Tab (Amoxicillin/Potassium Clav) 1 Each Tablet 1 Tab PO BID Reported Vitamin B-6 (Pyridoxine Hcl) 50 Mg Tablet 50 Mg PO Ranitidine Hcl 300 Mg Capsule 1 Cap PO DAILY Alendronate Sodium 70 Mg Tablet 1 Tab PO WEEKLY Kaopectate (Bismuth Subsalicylate) 262 Mg/15 Ml Oral.susp 30 Ml PO PRN Q8HRS PRN Mag-Al Plus Xs Suspension (Mag Hydrox/Al Hydrox/Simeth) 30 Ml Oral.susp 30 Ml PO PRN Q4HRS PRN Albuterol Sulfate Neb Soln (Albuterol Sulfate) 2.5 Mg/3 Ml Vial.neb 2.5 Mg NEB PRN Q6HRS PRN Vitamin D3 (Cholecalciferol (Vitamin D3)) 1,000 Unit Tablet 1,000 Unit PO BID Dulcolax (Bisacodyl) 10 Mg Supp.rect 10 Mg RC PRN DAILY PRN Fleet Enema (Na Phos,M-B/Na Phos,Di-Ba) 133 Ml Enema 1 Each RC PRN PRN Tylenol (Acetaminophen) 325 Mg Tablet 2 Tab PO PRN Q6HRS PRN Zolpidem Tartrate 5 Mg Tablet 1 Tab PO PRN QHS PRN Spiriva (Tiotropium [place]) 18 Mcg Cap.w.dev 1 Cap IH DAILY Symbicort 160-4.5 Mcg Inhaler (Budesonide/Formoterol Fumarate) 10.2 Gm Hfa.aer.ad 2 Puff IH BID Proair Hfa Inhaler (Albuterol Sulfate) 8.5 Gm Hfa.aer.ad 2 Puff INH PRN Q6HRS PRN Metoprolol Tartrate 50 Mg Tablet 1 Tab PO BID Clopidogrel (Clopidogrel Bisulfate) 75 Mg Tablet 1 Tab PO DAILY Lasix (Furosemide) 20 Mg Tablet 1 Tab PO DAILY Vitals/I & O Vital Sign - Last 24 Hours 08/20/16 08/20/16 08/20/16 08/20/16 10:59 11:00 15:18 15:39 Temp 98.9 99.4 98.9 99.4 Pulse 105 95 Resp B/P 119/66 111/56 Pulse Ox 100 94 96 96 O2 Delivery BiPAP/CPAP Venturi Mask BiPAP/CPAP BiPAP/CPAP O2 Flow Rate 3.0 08/20/16 08/20/16 08/20/16 08/20/16 16:14 19:51 20:00 20:50 Temp 98.7 98.7 Pulse 107 104 Resp B/P 138/64 138/64 Pulse Ox 93 98 O2 Delivery Venturi Mask Venturi Mask Venturi Mask O2 Flow Rate 12.0 12.0 08/20/16 08/21/16 08/21/16 08/21/16 23:18 03:11 06:47 07:52 Temp 98.7 97.6 97.7 97.1 98.7 97.6 97.7 97.1 Pulse 99 84 105 74 Resp 20 B/P 146/68 107/52 147/72 110/54 Pulse Ox 90 99 91 95 O2 Delivery Venturi Mask BiPAP/CPAP BiPAP/CPAP BiPAP/CPAP O2 Flow Rate 12.0 Intake and Output 08/20/16 08/20/16 08/21/16 15:00 23:00 07:00 Intake Total 1150 ml 250 ml 1060 ml Balance 1150 ml 250 ml 1060 ml RUIZ POSADAS MD Aug 21, 2016 09:15
--- NOTE | 2016-08-21 09:17 | RAD ---
BRAIN W/O CONTRAST Indication: DYSARTHRIA, NO SX HX, NO PRIORS, CALL RESULTS TO [facility] AT [phone] Reason: dysarthria, PT SATS NOT STABLE, FOR 08/21 PER FLOOR RN / Spl. Instructions: / History: COMPARISON: None TECHNIQUE: Axial diffusion weighted imaging was obtained. Additional sagittal T1, axial T1, axial FLAIR, and axial T2 weighted imaging of the brain was also performed. FINDINGS: There is a small focus of restricted diffusion in the left cerebellar hemisphere compatible with a small infarct. There is no associated swelling or significant edema. The 4th ventricle is not enlarged. There is no acute intracranial hemorrhage. There is an old left parietal infarct with associated encephalomalacia. Arterial flow voids at the level of the skull base are maintained. There are scattered foci of FLAIR signal hyperintensity in the periventricular white matter which are nonspecific but most likely related to sequelae of chronic small vessel ischemic disease. Paranasal sinuses are clear apart from some partial opacification of the left sphenoid sinus. Mastoid air cells are clear. Impression: - Small acute infarct in the left cerebellar hemisphere with no hemorrhage or associated swelling. - Old left parietal infarct. Critical results were discussed with Don, the patient's nurse at 9:14 a.m. on 08/21/2016. Electronically signed by: Gwyn Flynn (Aug 21, 2016 09:16:34)
--- NOTE | 2016-08-21 10:26 | PDOC ---
PROGRESS NOTES Chief Complaint Chief Complaint 1. AMS due to hypercapnic respiratory failure 2. 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 Hypertension. 4. Chronic diastolic heart failure. 5. Chronic obstructive pulmonary disease. 6. Mild elevation of troponin. 7. Hypercapnic respiratory failure Plan PRN BIPAP MRI - new CVA Supplemental oxygen Speech and swallow evaluation Aspirin or Plavix per neurology, awaiting neurology input PT/OT ECHO normal EF d/w cardiology home medications reconciled periodic nebulizations prn History of Present Illness History of Present Illness MORE CONFUSION THIS NO FEVER NO CHILLS Vitals Vitals Vital Signs Date Time Temp Pulse Resp B/P Pulse Ox O2 Delivery O2 Flow Rate FiO2 08/21/16 07:52 97.1 74 20 110/54 95 BiPAP/CPAP 97.1 08/20/16 23:18 12.0 Physical Exam General: Alert, Oriented X3, Cooperative, No acute distress Heart: Regular rate, Normal S1, Normal S2, No murmurs, Other (tele: SR) Lungs: Wheezing, Other Abdomen: Normal bowel sounds, Soft Extremities: Other Skin: No rashes, Other (venous stasis changes bilaterally) Labs LABS Laboratory Tests Test 08/20/16 11:00 08/20/16 15:00 08/21/16 04:05 O2 Saturation 89% (92-99) 94% (92-99) Arterial Blood pH 7.32 (7.35-7.45) 7.41 (7.35-7.45) Arterial Blood pCO2 at Patient Temp 64mmHg (35-46) 58mmHg (35-46) Arterial Blood pO2 at Patient Temp 57mmHg (65-108) 68mmHg (65-108) Arterial Blood HCO3 32mmol/L (21-28) 36mmol/L (21-28) Arterial Blood Base Excess 4mmol/L (-3-3) 9mmol/L (-3-3) FiO2 40 White Blood Count 10.8x10^3/uL (4.0-11.0) Red Blood Count 4.01x10^6/uL (3.50-5.40) Hemoglobin 12.9g/dL (12.0-15.5) Hematocrit 39.9% (36.0-47.0) Mean Corpuscular Volume 100fL (79-100) Mean Corpuscular Hemoglobin 32pg (25-35) Mean Corpuscular Hemoglobin Concent 32g/dL (31-37) Red Cell Distribution Width 13.3% (11.5-14.5) Platelet Count 157x10^3/uL (140-400) Neutrophils (%) (Auto) 85% (31-73) Lymphocytes (%) (Auto) 9% (24-48) Monocytes (%) (Auto) 6% (0-9) Eosinophils (%) (Auto) 0% (0-3) Basophils (%) (Auto) 0% (0-3) Neutrophils # (Auto) 9.1x10^3uL (1.8-7.7) Lymphocytes # (Auto) 1.0x10^3/uL (1.0-4.8) Monocytes # (Auto) 0.7x10^3/uL (0.0-1.1) Eosinophils # (Auto) 0.0x10^3/uL (0.0-0.7) Basophils # (Auto) 0.0x10^3/uL (0.0-0.2) Sodium Level 144mmol/L (136-145) Potassium Level 4.6mmol/L (3.5-5.1) Chloride Level 104mmol/L (98-107) Carbon Dioxide Level 40mmol/L (21-32) Anion Gap 0 (6-14) Blood Urea Nitrogen 14mg/dL (7-20) Creatinine 0.6mg/dL (0.6-1.0) Estimated GFR (Cockcroft-Gault) 96.4 Glucose Level 86mg/dL (70-99) Calcium Level 8.9mg/dL (8.5-10.1) Assessment and Plan Assessmemt and Plan Problems Medical Problems: (1) Altered mental status Status: Acute (2) Dysphasia Status: Acute (3) Elevated troponin Status: Acute Problems: Comment Review of Relevant I have reviewed the following items ana laura (where applicable) has been applied. Labs Laboratory Tests Test 08/19/16 11:16 08/19/16 11:20 08/19/16 12:05 08/19/16 17:55 Glucose (Fingerstick) 121mg/dL (70-99) White Blood Count 10.2x10^3/uL (4.0-11.0) Red Blood Count 4.52x10^6/uL (3.50-5.40) Hemoglobin 14.5g/dL (12.0-15.5) Hematocrit 43.7% (36.0-47.0) Mean Corpuscular Volume 97fL (79-100) Mean Corpuscular Hemoglobin 32pg (25-35) Mean Corpuscular Hemoglobin Concent 33g/dL (31-37) Red Cell Distribution Width 13.1% (11.5-14.5) Platelet Count 235x10^3/uL (140-400) Neutrophils (%) (Auto) 80% (31-73) Lymphocytes (%) (Auto) 12% (24-48) Monocytes (%) (Auto) 7% (0-9) Eosinophils (%) (Auto) 1% (0-3) Basophils (%) (Auto) 0% (0-3) Neutrophils # (Auto) 8.1x10^3uL (1.8-7.7) Lymphocytes # (Auto) 1.2x10^3/uL (1.0-4.8) Monocytes # (Auto) 0.8x10^3/uL (0.0-1.1) Eosinophils # (Auto) 0.1x10^3/uL (0.0-0.7) Basophils # (Auto) 0.0x10^3/uL (0.0-0.2) Prothrombin Time 12.5SEC (11.7-14.0) Prothromb Time International Ratio 1.0 (0.8-1.1) Activated Partial Thromboplast Time 29SEC (24-38) Troponin I Quantitative 0.074ng/mL (0.000-0.055) 0.060ng/mL (0.000-0.055) Sodium Level 142mmol/L (136-145) Potassium Level 4.6mmol/L (3.5-5.1) Chloride Level 101mmol/L (98-107) Carbon Dioxide Level 44mmol/L (21-32) Anion Gap (6-14) Blood Urea Nitrogen 12mg/dL (7-20) Creatinine 0.7mg/dL (0.6-1.0) Estimated GFR (Cockcroft-Gault) 80.7 Glucose Level 127mg/dL (70-99) Calcium Level 8.8mg/dL (8.5-10.1) Total Bilirubin 0.4mg/dL (0.2-1.0) Direct Bilirubin 0.1mg/dL (0.0-0.2) Aspartate Amino Transf (AST/SGOT) 18U/L (15-37) Alanine Aminotransferase (ALT/SGPT) 16U/L (14-59) Alkaline Phosphatase 106U/L (46-116) Total Protein 6.9g/dL (6.4-8.2) Albumin 2.9g/dL (3.4-5.0) Test 08/19/16 20:55 08/20/16 00:28 08/20/16 05:20 08/20/16 07:25 Nasal Screen MRSA (PCR) Negative (Negative) Troponin I Quantitative 0.082ng/mL (0.000-0.055) 0.105ng/mL (0.000-0.055) White Blood Count 10.0x10^3/uL (4.0-11.0) Red Blood Count 4.32x10^6/uL (3.50-5.40) Hemoglobin 13.8g/dL (12.0-15.5) Hematocrit 43.3% (36.0-47.0) Mean Corpuscular Volume 100fL (79-100) Mean Corpuscular Hemoglobin 32pg (25-35) Mean Corpuscular Hemoglobin Concent 32g/dL (31-37) Red Cell Distribution Width 13.3% (11.5-14.5) Platelet Count 181x10^3/uL (140-400) Neutrophils (%) (Auto) 88% (31-73) Lymphocytes (%) (Auto) 7% (24-48) Monocytes (%) (Auto) 5% (0-9) Eosinophils (%) (Auto) 0% (0-3) Basophils (%) (Auto) 0% (0-3) Neutrophils # (Auto) 8.8x10^3uL (1.8-7.7) Lymphocytes # (Auto) 0.7x10^3/uL (1.0-4.8) Monocytes # (Auto) 0.5x10^3/uL (0.0-1.1) Eosinophils # (Auto) 0.0x10^3/uL (0.0-0.7) Basophils # (Auto) 0.0x10^3/uL (0.0-0.2) Segmented Neutrophils % 93% (35-66) Band Neutrophils % 2% (0-9) Lymphocytes % 2% (24-48) Monocytes % 3% (0-10) Platelet Estimate Adequate (ADEQUATE) Sodium Level 139mmol/L (136-145) Potassium Level 4.6mmol/L (3.5-5.1) Chloride Level 101mmol/L (98-107) Carbon Dioxide Level 41mmol/L (21-32) Anion Gap (6-14) Blood Urea Nitrogen 12mg/dL (7-20) Creatinine 0.5mg/dL (0.6-1.0) Estimated GFR (Cockcroft-Gault) 119.0 Glucose Level 102mg/dL (70-99) Calcium Level 8.8mg/dL (8.5-10.1) Triglycerides Level 75mg/dL (0-150) Cholesterol Level 159mg/dL (0-200) LDL Cholesterol, Calculated 83mg/dL (0-100) VLDL Cholesterol, Calculated 15mg/dL (0-40) HDL Cholesterol 61mg/dL (40-60) Cholesterol/HDL Ratio 2.6 Thyroid Stimulating Hormone (TSH) 0.035uIU/mL (0.358-3.74) Free Thyroxine 1.49ng/dL (0.76-1.46) O2 Saturation 97% (92-99) Arterial Blood pH 7.19 (7.35-7.45) Arterial Blood pCO2 at Patient Temp 115mmHg (35-46) Arterial Blood pO2 at Patient Temp 105mmHg (65-108) Arterial Blood HCO3 43mmol/L (21-28) Arterial Blood Base Excess 10mmol/L (-3-3) FiO2 36 Test 08/20/16 11:00 08/20/16 15:00 08/21/16 04:05 O2 Saturation 89% (92-99) 94% (92-99) Arterial Blood pH 7.32 (7.35-7.45) 7.41 (7.35-7.45) Arterial Blood pCO2 at Patient Temp 64mmHg (35-46) 58mmHg (35-46) Arterial Blood pO2 at Patient Temp 57mmHg (65-108) 68mmHg (65-108) Arterial Blood HCO3 32mmol/L (21-28) 36mmol/L (21-28) Arterial Blood Base Excess 4mmol/L (-3-3) 9mmol/L (-3-3) FiO2 40 White Blood Count 10.8x10^3/uL (4.0-11.0) Red Blood Count 4.01x10^6/uL (3.50-5.40) Hemoglobin 12.9g/dL (12.0-15.5) Hematocrit 39.9% (36.0-47.0) Mean Corpuscular Volume 100fL (79-100) Mean Corpuscular Hemoglobin 32pg (25-35) Mean Corpuscular Hemoglobin Concent 32g/dL (31-37) Red Cell Distribution Width 13.3% (11.5-14.5) Platelet Count 157x10^3/uL (140-400) Neutrophils (%) (Auto) 85% (31-73) Lymphocytes (%) (Auto) 9% (24-48) Monocytes (%) (Auto) 6% (0-9) Eosinophils (%) (Auto) 0% (0-3) Basophils (%) (Auto) 0% (0-3) Neutrophils # (Auto) 9.1x10^3uL (1.8-7.7) Lymphocytes # (Auto) 1.0x10^3/uL (1.0-4.8) Monocytes # (Auto) 0.7x10^3/uL (0.0-1.1) Eosinophils # (Auto) 0.0x10^3/uL (0.0-0.7) Basophils # (Auto) 0.0x10^3/uL (0.0-0.2) Sodium Level 144mmol/L (136-145) Potassium Level 4.6mmol/L (3.5-5.1) Chloride Level 104mmol/L (98-107) Carbon Dioxide Level 40mmol/L (21-32) Anion Gap 0 (6-14) Blood Urea Nitrogen 14mg/dL (7-20) Creatinine 0.6mg/dL (0.6-1.0) Estimated GFR (Cockcroft-Gault) 96.4 Glucose Level 86mg/dL (70-99) Calcium Level 8.9mg/dL (8.5-10.1) Laboratory Tests Test 08/20/16 11:00 08/20/16 15:00 08/21/16 04:05 O2 Saturation 89% (92-99) 94% (92-99) Arterial Blood pH 7.32 (7.35-7.45) 7.41 (7.35-7.45) Arterial Blood pCO2 at Patient Temp 64mmHg (35-46) 58mmHg (35-46) Arterial Blood pO2 at Patient Temp 57mmHg (65-108) 68mmHg (65-108) Arterial Blood HCO3 32mmol/L (21-28) 36mmol/L (21-28) Arterial Blood Base Excess 4mmol/L (-3-3) 9mmol/L (-3-3) FiO2 40 White Blood Count 10.8x10^3/uL (4.0-11.0) Red Blood Count 4.01x10^6/uL (3.50-5.40) Hemoglobin 12.9g/dL (12.0-15.5) Hematocrit 39.9% (36.0-47.0) Mean Corpuscular Volume 100fL (79-100) Mean Corpuscular Hemoglobin 32pg (25-35) Mean Corpuscular Hemoglobin Concent 32g/dL (31-37) Red Cell Distribution Width 13.3% (11.5-14.5) Platelet Count 157x10^3/uL (140-400) Neutrophils (%) (Auto) 85% (31-73) Lymphocytes (%) (Auto) 9% (24-48) Monocytes (%) (Auto) 6% (0-9) Eosinophils (%) (Auto) 0% (0-3) Basophils (%) (Auto) 0% (0-3) Neutrophils # (Auto) 9.1x10^3uL (1.8-7.7) Lymphocytes # (Auto) 1.0x10^3/uL (1.0-4.8) Monocytes # (Auto) 0.7x10^3/uL (0.0-1.1) Eosinophils # (Auto) 0.0x10^3/uL (0.0-0.7) Basophils # (Auto) 0.0x10^3/uL (0.0-0.2) Sodium Level 144mmol/L (136-145) Potassium Level 4.6mmol/L (3.5-5.1) Chloride Level 104mmol/L (98-107) Carbon Dioxide Level 40mmol/L (21-32) Anion Gap 0 (6-14) Blood Urea Nitrogen 14mg/dL (7-20) Creatinine 0.6mg/dL (0.6-1.0) Estimated GFR (Cockcroft-Gault) 96.4 Glucose Level 86mg/dL (70-99) Calcium Level 8.9mg/dL (8.5-10.1) Medications Current Medications Ondansetron HCl (Zofran) 4 mg PRN Q8HRS PRN IV NAUSEA/VOMITING; Start 08/19/16 at 14:00; Stop 08/20/16 at 13:59; Status DC Acetaminophen (Tylenol) 650 mg PRN Q4HRS PRN PO FEVER; Start 08/19/16 at 14:00 ; Stop 08/20/16 at 13:59; Status DC Acetaminophen (Tylenol) 325 mg PRN Q6HRS PRN PO MILD PAIN / TEMP Last administered on 08/21/16t 04:14; Start 08/19/16 at 18:15 Acetaminophen/ Hydrocodone Bitart (Lortab 5/325) 1 tab PRN Q6HRS PRN PO MODERATE TO SEVERE PAIN; Start 08/19/16 at 18:15 Hydralazine HCl (Apresoline) 10 mg PRN Q4HRS PRN IVP ELEVATED BP, SEE COMMENTS ; Start 08/19/16 at 18:15 Ondansetron HCl (Zofran) 4 mg PRN Q8HRS PRN IV NAUSEA/VOMITING; Start 08/19/16 at 18:15 Albuterol Sulfate 2.5 mg 2.5 mg PRN Q4HRS PRN NEB SHORTNESS OF BREATH Last administered on 08/19/16t 19:23; Start 08/19/16 at 18:15; Stop 08/20/16 at 22:07 ; Status DC Sodium Chloride (Iv Sodium Chloride 0.9% 1000ml Bag) 1,000 ml @ 75 mls/hr [id number] IV Last administered on 08/21/16t 04:14; Start 08/19/16 at 18:15 Vitamin D (Vitamin D3) 1,000 unit BID PO ; Start 08/20/16 at 09:00 Metoprolol Tartrate (Lopressor) 50 mg BID PO Last administered on 08/20/16t 20: 50; Start 08/20/16 at 09:00 Albuterol Sulfate (Ventolin Neb Soln) 2.5 mg PRN Q6HRS PRN NEB SHORTNESS OF BREATH; Start 08/20/16 at 22:00 Clopidogrel Bisulfate (Plavix) 75 mg DAILY PO ; Start 08/21/16 at 09:00 Furosemide (Lasix) 20 mg DAILY PO ; Start 08/21/16 at 09:00 Prednisone (Prednisone) 10 mg DAILY PO ; Start 08/21/16 at 09:00 Pyridoxine HCl (Vitamin B-6) 50 mg DAILY PO ; Start 08/21/16 at 09:00 Non-Formulary Medication 2 puff PRN Q6HRS PRN INH SHORTNESS OF BREATH; Start at 22:00; Status UNV Non-Formulary Medication 2 puff BID IH ; Start 08/21/16 at 09:00; Status UNV Non-Formulary Medication 1 cap DAILY IH ; Start 08/21/16 at 09:00; Status UNV Budesonide (Pulmicort) 0.5 mg RTBID NEB ; Start 08/21/16 at 08:00 Albuterol/ Ipratropium (Duoneb) 3 ml RTQID NEB ; Start 08/21/16 at 08:00 Active Scripts Active Tramadol Hcl 50 Mg Tablet 1 Tab PO PRN Q6HRS PRN Prednisone 10 Mg Tablet 10 Mg PO UD Take 3 tablets by mouth daily for 3 days, then take 2 tablets by mouth daily for 3 days, then take 1 tablet by mouth daily for 3 days, then stop. Levaquin (Levofloxacin) 250 Mg Tablet 250 Mg PO DAILY06 Amox Tr-K Clv 500-125 Mg Tab (Amoxicillin/Potassium Clav) 1 Each Tablet 1 Tab PO BID Reported Vitamin B-6 (Pyridoxine Hcl) 50 Mg Tablet 50 Mg PO Ranitidine Hcl 300 Mg Capsule 1 Cap PO DAILY Alendronate Sodium 70 Mg Tablet 1 Tab PO WEEKLY Kaopectate (Bismuth Subsalicylate) 262 Mg/15 Ml Oral.susp 30 Ml PO PRN Q8HRS PRN Mag-Al Plus Xs Suspension (Mag Hydrox/Al Hydrox/Simeth) 30 Ml Oral.susp 30 Ml PO PRN Q4HRS PRN Albuterol Sulfate Neb Soln (Albuterol Sulfate) 2.5 Mg/3 Ml Vial.neb 2.5 Mg NEB PRN Q6HRS PRN Vitamin D3 (Cholecalciferol (Vitamin D3)) 1,000 Unit Tablet 1,000 Unit PO BID Dulcolax (Bisacodyl) 10 Mg Supp.rect 10 Mg RC PRN DAILY PRN Fleet Enema (Na Phos,M-B/Na Phos,Di-Ba) 133 Ml Enema 1 Each RC PRN PRN Tylenol (Acetaminophen) 325 Mg Tablet 2 Tab PO PRN Q6HRS PRN Zolpidem Tartrate 5 Mg Tablet 1 Tab PO PRN QHS PRN Spiriva (Tiotropium [place]) 18 Mcg Cap.w.dev 1 Cap IH DAILY Symbicort 160-4.5 Mcg Inhaler (Budesonide/Formoterol Fumarate) 10.2 Gm Hfa.aer.ad 2 Puff IH BID Proair Hfa Inhaler (Albuterol Sulfate) 8.5 Gm Hfa.aer.ad 2 Puff INH PRN Q6HRS PRN Metoprolol Tartrate 50 Mg Tablet 1 Tab PO BID Clopidogrel (Clopidogrel Bisulfate) 75 Mg Tablet 1 Tab PO DAILY Lasix (Furosemide) 20 Mg Tablet 1 Tab PO DAILY Vitals/I & O Vital Sign - Last 24 Hours 08/20/16 08/20/16 08/20/16 08/20/16 10:59 11:00 15:18 15:39 Temp 98.9 99.4 98.9 99.4 Pulse 105 95 Resp 26 22 B/P 119/66 111/56 Pulse Ox 100 94 96 96 O2 Delivery BiPAP/CPAP Venturi Mask BiPAP/CPAP BiPAP/CPAP O2 Flow Rate 3.0 08/20/16 08/20/16 08/20/16 08/20/16 16:14 19:51 20:00 20:50 Temp 98.7 98.7 Pulse 107 104 Resp 22 B/P 138/64 138/64 Pulse Ox 93 98 O2 Delivery Venturi Mask Venturi Mask Venturi Mask O2 Flow Rate 12.0 12.0 08/20/16 08/21/16 08/21/16 08/21/16 23:18 03:11 06:47 07:52 Temp 98.7 97.6 97.7 97.1 98.7 97.6 97.7 97.1 Pulse 99 84 105 74 Resp 20 24 22 20 B/P 146/68 107/52 147/72 110/54 Pulse Ox 90 99 91 95 O2 Delivery Venturi Mask BiPAP/CPAP BiPAP/CPAP BiPAP/CPAP O2 Flow Rate 12.0 Intake and Output 08/20/16 08/20/16 08/21/16 15:00 23:00 07:00 Intake Total 1150 ml 250 ml 1060 ml Balance 1150 ml 250 ml 1060 ml LEXY ARRINGTON MD Aug 21, 2016 10:25
--- NOTE | 2016-08-21 10:34 | PDOC ---
CARDIO Progress Notes Date and Time Date of Service 08/21/2016 Time of Evaluation 1032 Subjective Subjective: No Chest Pain, No Palpitations, No Dizziness, Other (more alert, wants to eat) Vitals Vitals Vital Signs Date Time Temp Pulse Resp B/P Pulse Ox O2 Delivery O2 Flow Rate FiO2 08/21/16 07:52 97.1 74 20 110/54 95 BiPAP/CPAP 97.1 08/20/16 23:18 12.0 Weight Weight [ ] Input and Output Intake and Output Intake and Output 08/21/16 07:00 Intake Total 2460 ml Balance 2460 ml Intake Oral 410 ml IV Total 1150 ml Blood Product IV Normal Saline Flush 900 ml # Voids 6 Laboratory Labs Laboratory Tests Test 08/20/16 11:00 08/20/16 15:00 08/21/16 04:05 O2 Saturation 89% (92-99) 94% (92-99) Arterial Blood pH 7.32 (7.35-7.45) 7.41 (7.35-7.45) Arterial Blood pCO2 at Patient Temp 64mmHg (35-46) 58mmHg (35-46) Arterial Blood pO2 at Patient Temp 57mmHg (65-108) 68mmHg (65-108) Arterial Blood HCO3 32mmol/L (21-28) 36mmol/L (21-28) Arterial Blood Base Excess 4mmol/L (-3-3) 9mmol/L (-3-3) FiO2 40 White Blood Count 10.8x10^3/uL (4.0-11.0) Red Blood Count 4.01x10^6/uL (3.50-5.40) Hemoglobin 12.9g/dL (12.0-15.5) Hematocrit 39.9% (36.0-47.0) Mean Corpuscular Volume 100fL (79-100) Mean Corpuscular Hemoglobin 32pg (25-35) Mean Corpuscular Hemoglobin Concent 32g/dL (31-37) Red Cell Distribution Width 13.3% (11.5-14.5) Platelet Count 157x10^3/uL (140-400) Neutrophils (%) (Auto) 85% (31-73) Lymphocytes (%) (Auto) 9% (24-48) Monocytes (%) (Auto) 6% (0-9) Eosinophils (%) (Auto) 0% (0-3) Basophils (%) (Auto) 0% (0-3) Neutrophils # (Auto) 9.1x10^3uL (1.8-7.7) Lymphocytes # (Auto) 1.0x10^3/uL (1.0-4.8) Monocytes # (Auto) 0.7x10^3/uL (0.0-1.1) Eosinophils # (Auto) 0.0x10^3/uL (0.0-0.7) Basophils # (Auto) 0.0x10^3/uL (0.0-0.2) Sodium Level 144mmol/L (136-145) Potassium Level 4.6mmol/L (3.5-5.1) Chloride Level 104mmol/L (98-107) Carbon Dioxide Level 40mmol/L (21-32) Anion Gap 0 (6-14) Blood Urea Nitrogen 14mg/dL (7-20) Creatinine 0.6mg/dL (0.6-1.0) Estimated GFR (Cockcroft-Gault) 96.4 Glucose Level 86mg/dL (70-99) Calcium Level 8.9mg/dL (8.5-10.1) Case Discussion Case Discussed with: Family Physical Exam HEENT: Neck Supple W Full Motion Chest: Symmetric LUNGS: Other (coarse) Heart: S1S2, RRR, other (tele: SR/ST) Abdomen: Soft N/T Extremities: No Edema, No Calf Tenderness Neurology: alert, follow commands Assessment Assessment 1. Acute respiratory failure with underlying COPD/mod pulmonary HTN 2. acute left cerebellar stroke per Neuro 3. Elevated troponin peak @ 0.08 suspect demand mediated 4. HTN labile at times continue meds 5. Chronic diastolic HF; preserved LV function compensated continue medical management 6. tachycardia continue BB as not wheezing JOHAN ROBIN APRN Aug 21, 2016 10:34
[2016-08-21] MEDS: FUROSEMIDE 20 MG TABLET PO SCH (11:45)
[2016-08-21] MEDS: CLOPIDOGREL BISULFATE 75 MG TABLET PO SCH (11:46)
[2016-08-21] MEDS: BUDESONIDE 0.5 MG/2 ML NEBU NEB SCH ×2 (12:34→19:30)
--- NOTE | 2016-08-21 12:57 | PDOC ---
PULMONARY PROGRESS NOTES Subjective BETTER OFF BIPAP Vitals Vital Signs Date Time Temp Pulse Resp B/P Pulse Ox O2 Delivery O2 Flow Rate FiO2 08/21/16 12:38 96 Venturi Mask 12.0 08/21/16 11:07 98.0 105 20 143/66 98.0 General: No acute distress, Confused Lungs: Other (decrease bs) Cardiovascular: S1, S2 Abdomen: Soft, Non-tender Extremities: No Edema Labs Laboratory Tests Test 08/19/16 17:55 08/19/16 20:55 08/20/16 00:28 08/20/16 05:20 Troponin I Quantitative 0.060ng/mL (0.000-0.055) 0.082ng/mL (0.000-0.055) 0.105ng/mL (0.000-0.055) Nasal Screen MRSA (PCR) Negative (Negative) White Blood Count 10.0x10^3/uL (4.0-11.0) Red Blood Count 4.32x10^6/uL (3.50-5.40) Hemoglobin 13.8g/dL (12.0-15.5) Hematocrit 43.3% (36.0-47.0) Mean Corpuscular Volume 100fL (79-100) Mean Corpuscular Hemoglobin 32pg (25-35) Mean Corpuscular Hemoglobin Concent 32g/dL (31-37) Red Cell Distribution Width 13.3% (11.5-14.5) Platelet Count 181x10^3/uL (140-400) Neutrophils (%) (Auto) 88% (31-73) Lymphocytes (%) (Auto) 7% (24-48) Monocytes (%) (Auto) 5% (0-9) Eosinophils (%) (Auto) 0% (0-3) Basophils (%) (Auto) 0% (0-3) Neutrophils # (Auto) 8.8x10^3uL (1.8-7.7) Lymphocytes # (Auto) 0.7x10^3/uL (1.0-4.8) Monocytes # (Auto) 0.5x10^3/uL (0.0-1.1) Eosinophils # (Auto) 0.0x10^3/uL (0.0-0.7) Basophils # (Auto) 0.0x10^3/uL (0.0-0.2) Segmented Neutrophils % 93% (35-66) Band Neutrophils % 2% (0-9) Lymphocytes % 2% (24-48) Monocytes % 3% (0-10) Platelet Estimate Adequate (ADEQUATE) Sodium Level 139mmol/L (136-145) Potassium Level 4.6mmol/L (3.5-5.1) Chloride Level 101mmol/L (98-107) Carbon Dioxide Level 41mmol/L (21-32) Anion Gap (6-14) Blood Urea Nitrogen 12mg/dL (7-20) Creatinine 0.5mg/dL (0.6-1.0) Estimated GFR (Cockcroft-Gault) 119.0 Glucose Level 102mg/dL (70-99) Calcium Level 8.8mg/dL (8.5-10.1) Triglycerides Level 75mg/dL (0-150) Cholesterol Level 159mg/dL (0-200) LDL Cholesterol, Calculated 83mg/dL (0-100) VLDL Cholesterol, Calculated 15mg/dL (0-40) HDL Cholesterol 61mg/dL (40-60) Cholesterol/HDL Ratio 2.6 Thyroid Stimulating Hormone (TSH) 0.035uIU/mL (0.358-3.74) Free Thyroxine 1.49ng/dL (0.76-1.46) Test 08/20/16 07:25 08/20/16 11:00 08/20/16 15:00 08/21/16 04:05 O2 Saturation 97% (92-99) 89% (92-99) 94% (92-99) Arterial Blood pH 7.19 (7.35-7.45) 7.32 (7.35-7.45) 7.41 (7.35-7.45) Arterial Blood pCO2 at Patient Temp 115mmHg (35-46) 64mmHg (35-46) 58mmHg (35-46) Arterial Blood pO2 at Patient Temp 105mmHg (65-108) 57mmHg (65-108) 68mmHg (65-108) Arterial Blood HCO3 43mmol/L (21-28) 32mmol/L (21-28) 36mmol/L (21-28) Arterial Blood Base Excess 10mmol/L (-3-3) 4mmol/L (-3-3) 9mmol/L (-3-3) FiO2 36 40 White Blood Count 10.8x10^3/uL (4.0-11.0) Red Blood Count 4.01x10^6/uL (3.50-5.40) Hemoglobin 12.9g/dL (12.0-15.5) Hematocrit 39.9% (36.0-47.0) Mean Corpuscular Volume 100fL (79-100) Mean Corpuscular Hemoglobin 32pg (25-35) Mean Corpuscular Hemoglobin Concent 32g/dL (31-37) Red Cell Distribution Width 13.3% (11.5-14.5) Platelet Count 157x10^3/uL (140-400) Neutrophils (%) (Auto) 85% (31-73) Lymphocytes (%) (Auto) 9% (24-48) Monocytes (%) (Auto) 6% (0-9) Eosinophils (%) (Auto) 0% (0-3) Basophils (%) (Auto) 0% (0-3) Neutrophils # (Auto) 9.1x10^3uL (1.8-7.7) Lymphocytes # (Auto) 1.0x10^3/uL (1.0-4.8) Monocytes # (Auto) 0.7x10^3/uL (0.0-1.1) Eosinophils # (Auto) 0.0x10^3/uL (0.0-0.7) Basophils # (Auto) 0.0x10^3/uL (0.0-0.2) Sodium Level 144mmol/L (136-145) Potassium Level 4.6mmol/L (3.5-5.1) Chloride Level 104mmol/L (98-107) Carbon Dioxide Level 40mmol/L (21-32) Anion Gap 0 (6-14) Blood Urea Nitrogen 14mg/dL (7-20) Creatinine 0.6mg/dL (0.6-1.0) Estimated GFR (Cockcroft-Gault) 96.4 Glucose Level 86mg/dL (70-99) Calcium Level 8.9mg/dL (8.5-10.1) Laboratory Tests Test 08/20/16 15:00 08/21/16 04:05 O2 Saturation 94% (92-99) Arterial Blood pH 7.41 (7.35-7.45) Arterial Blood pCO2 at Patient Temp 58mmHg (35-46) Arterial Blood pO2 at Patient Temp 68mmHg (65-108) Arterial Blood HCO3 36mmol/L (21-28) Arterial Blood Base Excess 9mmol/L (-3-3) FiO2 40 White Blood Count 10.8x10^3/uL (4.0-11.0) Red Blood Count 4.01x10^6/uL (3.50-5.40) Hemoglobin 12.9g/dL (12.0-15.5) Hematocrit 39.9% (36.0-47.0) Mean Corpuscular Volume 100fL (79-100) Mean Corpuscular Hemoglobin 32pg (25-35) Mean Corpuscular Hemoglobin Concent 32g/dL (31-37) Red Cell Distribution Width 13.3% (11.5-14.5) Platelet Count 157x10^3/uL (140-400) Neutrophils (%) (Auto) 85% (31-73) Lymphocytes (%) (Auto) 9% (24-48) Monocytes (%) (Auto) 6% (0-9) Eosinophils (%) (Auto) 0% (0-3) Basophils (%) (Auto) 0% (0-3) Neutrophils # (Auto) 9.1x10^3uL (1.8-7.7) Lymphocytes # (Auto) 1.0x10^3/uL (1.0-4.8) Monocytes # (Auto) 0.7x10^3/uL (0.0-1.1) Eosinophils # (Auto) 0.0x10^3/uL (0.0-0.7) Basophils # (Auto) 0.0x10^3/uL (0.0-0.2) Sodium Level 144mmol/L (136-145) Potassium Level 4.6mmol/L (3.5-5.1) Chloride Level 104mmol/L (98-107) Carbon Dioxide Level 40mmol/L (21-32) Anion Gap 0 (6-14) Blood Urea Nitrogen 14mg/dL (7-20) Creatinine 0.6mg/dL (0.6-1.0) Estimated GFR (Cockcroft-Gault) 96.4 Glucose Level 86mg/dL (70-99) Calcium Level 8.9mg/dL (8.5-10.1) Medications Active Scripts Medications Dose Route/Sig Days Date Category Dose Instructions Vitamin B-6 (Pyridoxine Hcl) 50 Mg Tablet 50 Mg PO 08/19/16 Reported Ranitidine Hcl 300 Mg Capsule 1 Cap PO DAILY 08/19/16 Reported Alendronate Sodium 70 Mg Tablet 1 Tab PO WEEKLY 08/19/16 Reported Tramadol Hcl 50 Mg Tablet 1 Tab PO PRN Q6HRS PRN 08/05/16 Rx Prednisone 10 Mg Tablet 10 Mg PO UD 08/04/16 Rx Take 3 tablets by mouth daily for 3 days, then take 2 tablets by mouth daily for 3 days, then take 1 tablet by mouth daily for 3 days, then stop. Levaquin (Levofloxacin) 250 Mg Tablet 250 Mg PO DAILY06 08/04/16 Rx Amox Tr-K Clv 500-125 Mg Tab (Amoxicillin/Potassium Clav) 1 Each Tablet 1 Tab PO BID 07/11/16 Rx Kaopectate (Bismuth Subsalicylate) 262 Mg/15 Ml Oral.susp 30 Ml PO PRN Q8HRS PRN 07/06/16 Reported Mag-Al Plus Xs Suspension (Mag Hydrox/Al Hydrox/Simeth) 30 Ml Oral.susp 30 Ml PO PRN Q4HRS PRN 07/06/16 Reported Albuterol Sulfate Neb Soln (Albuterol Sulfate) 2.5 Mg/3 Ml Vial.neb 2.5 Mg NEB PRN Q6HRS PRN 07/06/16 Reported Vitamin D3 (Cholecalciferol (Vitamin D3)) 1,000 Unit Tablet 1,000 Unit PO BID 07/06/16 Reported Dulcolax (Bisacodyl) 10 Mg Supp.rect 10 Mg RC PRN DAILY PRN 07/06/16 Reported Fleet Enema (Na Phos,M-B/Na Phos,Di-Ba) 133 Ml Enema 1 Each RC PRN PRN 07/06/16 Reported Tylenol (Acetaminophen) 325 Mg Tablet 2 Tab PO PRN Q6HRS PRN 07/06/16 Reported Zolpidem Tartrate 5 Mg Tablet 1 Tab PO PRN QHS PRN 06/29/16 Reported Spiriva (Tiotropium Hawley) 18 Mcg Cap.w.dev 1 Cap IH DAILY 03/03/16 Reported Symbicort 160-4.5 Mcg Inhaler (Budesonide/Formoterol Fumarate) 10.2 Gm Hfa.aer.ad 2 Puff IH BID 03/03/16 Reported Proair Hfa Inhaler (Albuterol Sulfate) 8.5 Gm Hfa.aer.ad 2 Puff INH PRN Q6HRS PRN 03/03/16 Reported Metoprolol Tartrate 50 Mg Tablet 1 Tab PO BID 03/03/16 Reported Clopidogrel (Clopidogrel Bisulfate) 75 Mg Tablet 1 Tab PO DAILY 03/03/16 Reported Lasix (Furosemide) 20 Mg Tablet 1 Tab PO DAILY 03/03/16 Reported Impression . 1. Acute on chronic hypercapnic respiratory failure secondary to acute exacerbation of chronic obstructive pulmonary disease. 2. Lethargy and slurring of speech, probably related to CO2 narcosis, but repeat CT head would be reasonable to rule out ischemic cerebrovascular accident. 3. Underlying severe chronic obstructive pulmonary disease, which is oxygen dependent. 4. No definite pneumonia seen on the chest x-ray. Plan . 1. Clinically improved with BIPAP 2. Repeat ABGs much improved. 3. Continue with present bronchodilators. 4. Avoid any narcotics. 6. Discussed with CHEYANNE ALBERTO MD Aug 21, 2016 12:57
--- NOTE | 2016-08-21 15:12 | RAD ---
EXAM: Carotid Doppler sonogram. HISTORY: Cerebrovascular accident. TECHNIQUE: Payton scale and color Doppler sonographic evaluation of the neck with spectral waveform analysis was performed and static images are submitted for review. FINDINGS: RIGHT: The peak systolic velocity within the common carotid artery is 86 cm/sec. The peak systolic velocity within the internal carotid artery is 73 cm/sec and the end diastolic velocity within the internal carotid artery is 28 cm/sec. The ICA/CCA ratio is 1.06. Grayscale images demonstrate mild calcified and noncalcified plaquing without grayscale stenosis. LEFT: The peak systolic velocity within the common carotid artery is 74 cm/sec. The peak systolic velocity within the internal carotid artery is 119 cm/sec and the end diastolic velocity within the internal carotid artery is 41 cm/sec. The ICA/CCA ratio is 1.61. Grayscale images demonstrate mild calcified and noncalcified plaquing without grayscale stenosis. There is antegrade flow within both vertebral arteries. IMPRESSION: 1. No evidence of hemodynamically significant stenosis. PQRS Compliance Statement - Stenosis calculations for CT, MR and conventional angiography are based upon measurement of the distal ICA diameter in accordance with the NASCET methodology. Stenosis calculations for carotid ultrasound studies are derived from validated velocity criteria which are known to correlate with the NASCET methodology.
[2016-08-21] MEDS ORDERED: FUROSEMIDE 20 MG/2 ML VIAL IVP ONE (15:30)
[2016-08-21] MEDS: METOPROLOL TARTRATE 5 MG/5 ML VIAL. IVP SCH ×2 (17:54→23:55)
[2016-08-22] VITALS (7 sets, daily range): BP systolic 93–149; BP diastolic 59–84
[2016-08-22] MEDS: IV NORMAL SALINE 1000ML BAG 1,000 ML IV SCH ×2 (01:09→21:13)
[2016-08-22 04:08] LABS: BASO % 0 % (0-3); EOS % 1 % (0-3); HEMATOCRIT 39.6 % (36.0-47.0); HEMOGLOBIN 12.9 g/dL (12.0-15.5); LYMPH # 0.8 x10^3/uL (1.0-4.8); LYMPH % 13 % (24-48); MEAN CORPUSCULAR HEMOGLOBIN 32 pg (25-35); MEAN CORPUSCULAR HGB CONC 33 g/dL (31-37); MEAN CORPUSCULAR VOLUME 98 fL (79-100); MONO % 8 % (0-9); NEUT % 78 % (31-73); PLATELET COUNT 138 x10^3/uL (140-400); RED BLOOD COUNT 4.04 x10^6/uL (3.50-5.40); RED CELL DISTRIBUTION WIDTH 13.3 % (11.5-14.5); WHITE BLOOD COUNT 6.1 x10^3/uL (4.0-11.0)
[2016-08-22 04:50] LABS: CALCIUM 8.4 mg/dL (8.5-10.1); CREATININE 0.4 mg/dL (0.6-1.0); POTASSIUM 3.8 mmol/L (3.5-5.1)
[2016-08-22] MEDS: METOPROLOL TARTRATE 5 MG/5 ML VIAL. IVP SCH ×2 (06:32→11:27)
[2016-08-22] MEDS: BUDESONIDE 0.5 MG/2 ML NEBU NEB SCH ×2 (07:14→19:20)
[2016-08-22] MEDS: IPRATRPIUM/ALBUTEROL 0.5/2.5MG 3 ML NEBU. NEB SCH ×4 (07:14→19:20)
[2016-08-22] MEDS: CLOPIDOGREL BISULFATE 75 MG TABLET PO SCH (09:00)
[2016-08-22] MEDS: CHOLECALCIFEROL (VITAMIN D3) 1,000 UNIT TABLET PO SCH ×2 (09:00→21:13)
[2016-08-22] MEDS: FUROSEMIDE 20 MG TABLET PO SCH (09:00)
[2016-08-22] MEDS: PYRIDOXINE 50 MG TABLET. PO SCH (09:00)
[2016-08-22] MEDS: PREDNISONE 10 MG TABLET PO SCH (09:00)
--- NOTE | 2016-08-22 09:26 | PDOC ---
PROGRESS NOTES Assessment Problems Medical Problems: (1) Altered mental status Status: Acute (2) Dysphasia Status: Acute (3) Elevated troponin Status: Acute Small left cerebellar infarct, basically an incidental finding. Workup negative Metabolic encephalopathy mainly due to hypercarbic respiratory failure, better Prior dementia Prior B-12 deficiency, discussed with daughter, patient has been getting B12 shots History of left parietal stroke Swallow eval noted Plan Treat medical diseases Continue clopidogrel Lipid profile favorable, risks exceed benefits of statin Await swallow re-eval Discussed with daughter Subjective No complaints Objective Vital Signs Date Time Temp Pulse Resp B/P Pulse Ox O2 Delivery O2 Flow Rate FiO2 08/22/16 07:30 99.0 98 149/84 93 Venturi Mask 12.0 99.0 08/22/16 02:50 22 Intake and Output 08/22/16 07:00 Intake Total 1300 ml Balance 1300 ml Intake Oral 0 ml IV Total 400 ml Blood Product IV Normal Saline Flush 900 ml # Voids 6 PHYSICAL EXAM On BiPAP Alert. Oriented to place and person. PERRL. EOMI. CN: no focal findings. Muscle tone: normal. Muscle strength: 4/5 DTR: 1+ Plantar reflex: flexor Gait: not examined in bed. Sensory exam: no abnormal findings. No cerebellar signs elicited. Review of Relevant I have reviewed the following items ana laura (where applicable) has been applied. Labs Laboratory Tests Test 08/20/16 11:00 08/20/16 15:00 08/21/16 04:05 08/22/16 04:00 O2 Saturation 89% (92-99) 94% (92-99) Arterial Blood pH 7.32 (7.35-7.45) 7.41 (7.35-7.45) Arterial Blood pCO2 at Patient Temp 64mmHg (35-46) 58mmHg (35-46) Arterial Blood pO2 at Patient Temp 57mmHg (65-108) 68mmHg (65-108) Arterial Blood HCO3 32mmol/L (21-28) 36mmol/L (21-28) Arterial Blood Base Excess 4mmol/L (-3-3) 9mmol/L (-3-3) FiO2 40 White Blood Count 10.8x10^3/uL (4.0-11.0) 6.1x10^3/uL (4.0-11.0) Red Blood Count 4.01x10^6/uL (3.50-5.40) 4.04x10^6/uL (3.50-5.40) Hemoglobin 12.9g/dL (12.0-15.5) 12.9g/dL (12.0-15.5) Hematocrit 39.9% (36.0-47.0) 39.6% (36.0-47.0) Mean Corpuscular Volume 100fL (79-100) 98fL (79-100) Mean Corpuscular Hemoglobin 32pg (25-35) 32pg (25-35) Mean Corpuscular Hemoglobin Concent 32g/dL (31-37) 33g/dL (31-37) Red Cell Distribution Width 13.3% (11.5-14.5) 13.3% (11.5-14.5) Platelet Count 157x10^3/uL (140-400) 138x10^3/uL (140-400) Neutrophils (%) (Auto) 85% (31-73) 78% (31-73) Lymphocytes (%) (Auto) 9% (24-48) 13% (24-48) Monocytes (%) (Auto) 6% (0-9) 8% (0-9) Eosinophils (%) (Auto) 0% (0-3) 1% (0-3) Basophils (%) (Auto) 0% (0-3) 0% (0-3) Neutrophils # (Auto) 9.1x10^3uL (1.8-7.7) 4.8x10^3uL (1.8-7.7) Lymphocytes # (Auto) 1.0x10^3/uL (1.0-4.8) 0.8x10^3/uL (1.0-4.8) Monocytes # (Auto) 0.7x10^3/uL (0.0-1.1) 0.5x10^3/uL (0.0-1.1) Eosinophils # (Auto) 0.0x10^3/uL (0.0-0.7) 0.1x10^3/uL (0.0-0.7) Basophils # (Auto) 0.0x10^3/uL (0.0-0.2) 0.0x10^3/uL (0.0-0.2) Sodium Level 144mmol/L (136-145) 144mmol/L (136-145) Potassium Level 4.6mmol/L (3.5-5.1) 3.8mmol/L (3.5-5.1) Chloride Level 104mmol/L (98-107) 102mmol/L (98-107) Carbon Dioxide Level 40mmol/L (21-32) 39mmol/L (21-32) Anion Gap 0 (6-14) 3 (6-14) Blood Urea Nitrogen 14mg/dL (7-20) 14mg/dL (7-20) Creatinine 0.6mg/dL (0.6-1.0) 0.4mg/dL (0.6-1.0) Estimated GFR (Cockcroft-Gault) 96.4 154.0 Glucose Level 86mg/dL (70-99) 74mg/dL (70-99) Calcium Level 8.9mg/dL (8.5-10.1) 8.4mg/dL (8.5-10.1) Laboratory Tests Test 08/22/16 04:00 White Blood Count 6.1x10^3/uL (4.0-11.0) Red Blood Count 4.04x10^6/uL (3.50-5.40) Hemoglobin 12.9g/dL (12.0-15.5) Hematocrit 39.6% (36.0-47.0) Mean Corpuscular Volume 98fL (79-100) Mean Corpuscular Hemoglobin 32pg (25-35) Mean Corpuscular Hemoglobin Concent 33g/dL (31-37) Red Cell Distribution Width 13.3% (11.5-14.5) Platelet Count 138x10^3/uL (140-400) Neutrophils (%) (Auto) 78% (31-73) Lymphocytes (%) (Auto) 13% (24-48) Monocytes (%) (Auto) 8% (0-9) Eosinophils (%) (Auto) 1% (0-3) Basophils (%) (Auto) 0% (0-3) Neutrophils # (Auto) 4.8x10^3uL (1.8-7.7) Lymphocytes # (Auto) 0.8x10^3/uL (1.0-4.8) Monocytes # (Auto) 0.5x10^3/uL (0.0-1.1) Eosinophils # (Auto) 0.1x10^3/uL (0.0-0.7) Basophils # (Auto) 0.0x10^3/uL (0.0-0.2) Sodium Level 144mmol/L (136-145) Potassium Level 3.8mmol/L (3.5-5.1) Chloride Level 102mmol/L (98-107) Carbon Dioxide Level 39mmol/L (21-32) Anion Gap 3 (6-14) Blood Urea Nitrogen 14mg/dL (7-20) Creatinine 0.4mg/dL (0.6-1.0) Estimated GFR (Cockcroft-Gault) 154.0 Glucose Level 74mg/dL (70-99) Calcium Level 8.4mg/dL (8.5-10.1) Medications Current Medications Ondansetron HCl (Zofran) 4 mg PRN Q8HRS PRN IV NAUSEA/VOMITING; Start 08/19/16 at 14:00; Stop 08/20/16 at 13:59; Status DC Acetaminophen (Tylenol) 650 mg PRN Q4HRS PRN PO FEVER; Start 08/19/16 at 14:00 ; Stop 08/20/16 at 13:59; Status DC Acetaminophen (Tylenol) 325 mg PRN Q6HRS PRN PO MILD PAIN / TEMP Last administered on 08/21/16t 04:14; Start 08/19/16 at 18:15 Acetaminophen/ Hydrocodone Bitart (Lortab 5/325) 1 tab PRN Q6HRS PRN PO MODERATE TO SEVERE PAIN; Start 08/19/16 at 18:15 Hydralazine HCl (Apresoline) 10 mg PRN Q4HRS PRN IVP ELEVATED BP, SEE COMMENTS ; Start 08/19/16 at 18:15 Ondansetron HCl (Zofran) 4 mg PRN Q8HRS PRN IV NAUSEA/VOMITING; Start 08/19/16 at 18:15 Albuterol Sulfate 2.5 mg 2.5 mg PRN Q4HRS PRN NEB SHORTNESS OF BREATH Last administered on 08/19/16 19:23; Start 08/19/16 at 18:15; Stop 08/20/16 at 22:07 ; Status DC Sodium Chloride (Iv Sodium Chloride 0.9% 1000ml Bag) 1,000 ml @ 75 mls/hr [id number] IV Last administered on 08/22/16 01:09; Start 08/19/16 at 18:15 Vitamin D (Vitamin D3) 1,000 unit BID PO ; Start 08/20/16 at 09:00 Metoprolol Tartrate (Lopressor) 50 mg BID PO Last administered on 08/20/16 20: 50; Start 08/20/16 at 09:00; Stop 08/21/16 at 15:29; Status DC Albuterol Sulfate (Ventolin Neb Soln) 2.5 mg PRN Q6HRS PRN NEB SHORTNESS OF BREATH; Start 08/20/16 at 22:00 Clopidogrel Bisulfate (Plavix) 75 mg DAILY PO Last administered on 08/21/16 11 :46; Start 08/21/16 at 09:00 Furosemide (Lasix) 20 mg DAILY PO Last administered on 08/21/16 11:45; Start 08/21/16 at 09:00 Prednisone (Prednisone) 10 mg DAILY PO ; Start 08/21/16 at 09:00 Pyridoxine HCl (Vitamin B-6) 50 mg DAILY PO ; Start 08/21/16 at 09:00 Non-Formulary Medication 2 puff PRN Q6HRS PRN INH SHORTNESS OF BREATH; Start at 22:00; Status UNV Non-Formulary Medication 2 puff BID IH ; Start 08/21/16 at 09:00; Status UNV Non-Formulary Medication 1 cap DAILY IH ; Start 08/21/16 at 09:00; Status UNV Budesonide (Pulmicort) 0.5 mg RTBID NEB Last administered on 08/22/16 07:14; Start 08/21/16 at 08:00 Albuterol/ Ipratropium (Duoneb) 3 ml RTQID NEB Last administered on 08/22/16 07:14; Start 08/21/16 at 08:00 Metoprolol Tartrate (Lopressor) 2.5 mg Q6HRS IVP Last administered on 06:32; Start 08/21/16 at 18:00 Furosemide (Lasix) 20 mg 1X ONCE IVP Last administered on 08/21/16 16:19; Start 08/21/16 at 15:30; Stop 08/21/16 at 15:31; Status DC Active Scripts Active Tramadol Hcl 50 Mg Tablet 1 Tab PO PRN Q6HRS PRN Prednisone 10 Mg Tablet 10 Mg PO UD Take 3 tablets by mouth daily for 3 days, then take 2 tablets by mouth daily for 3 days, then take 1 tablet by mouth daily for 3 days, then stop. Levaquin (Levofloxacin) 250 Mg Tablet 250 Mg PO DAILY06 Amox Tr-K Clv 500-125 Mg Tab (Amoxicillin/Potassium Clav) 1 Each Tablet 1 Tab PO BID Reported Vitamin B-6 (Pyridoxine Hcl) 50 Mg Tablet 50 Mg PO Ranitidine Hcl 300 Mg Capsule 1 Cap PO DAILY Alendronate Sodium 70 Mg Tablet 1 Tab PO WEEKLY Kaopectate (Bismuth Subsalicylate) 262 Mg/15 Ml Oral.susp 30 Ml PO PRN Q8HRS PRN Mag-Al Plus Xs Suspension (Mag Hydrox/Al Hydrox/Simeth) 30 Ml Oral.susp 30 Ml PO PRN Q4HRS PRN Albuterol Sulfate Neb Soln (Albuterol Sulfate) 2.5 Mg/3 Ml Vial.neb 2.5 Mg NEB PRN Q6HRS PRN Vitamin D3 (Cholecalciferol (Vitamin D3)) 1,000 Unit Tablet 1,000 Unit PO BID Dulcolax (Bisacodyl) 10 Mg Supp.rect 10 Mg RC PRN DAILY PRN Fleet Enema (Na Phos,M-B/Na Phos,Di-Ba) 133 Ml Enema 1 Each RC PRN PRN Tylenol (Acetaminophen) 325 Mg Tablet 2 Tab PO PRN Q6HRS PRN Zolpidem Tartrate 5 Mg Tablet 1 Tab PO PRN QHS PRN Spiriva (Tiotropium Saline) 18 Mcg Cap.w.dev 1 Cap IH DAILY Symbicort 160-4.5 Mcg Inhaler (Budesonide/Formoterol Fumarate) 10.2 Gm Hfa.aer.ad 2 Puff IH BID Proair Hfa Inhaler (Albuterol Sulfate) 8.5 Gm Hfa.aer.ad 2 Puff INH PRN Q6HRS PRN Metoprolol Tartrate 50 Mg Tablet 1 Tab PO BID Clopidogrel (Clopidogrel Bisulfate) 75 Mg Tablet 1 Tab PO DAILY Lasix (Furosemide) 20 Mg Tablet 1 Tab PO DAILY Vitals/I & O Vital Sign - Last 24 Hours 08/21/16 08/21/16 08/21/16 08/21/16 11:07 12:36 12:38 14:27 Temp 98.0 96.8 98.0 96.8 Pulse 105 83 Resp 20 20 B/P 143/66 140/46 Pulse Ox 93 96 96 94 O2 Delivery Venturi Mask Venturi Mask Venturi Mask Venturi Mask O2 Flow Rate 12.0 12.0 08/21/16 08/21/16 08/21/16 08/21/16 15:57 17:54 19:29 19:30 Temp 97.9 97.9 Pulse 86 90 Resp 18 B/P 134/70 131/67 Pulse Ox 94 93 O2 Delivery Venturi Mask Venturi Mask Nasal Cannula O2 Flow Rate 12.0 12.0 12.0 08/21/16 08/21/16 08/21/16 08/22/16 20:20 23:10 23:55 02:50 Temp 98.2 97.6 98.2 97.6 Pulse 87 87 100 Resp 18 22 B/P 118/68 118/68 146/78 Pulse Ox 95 96 O2 Delivery Venturi Mask Venturi Mask O2 Flow Rate 12.0 12.0 12.0 08/22/16 08/22/16 08/22/16 06:32 07:14 07:30 Temp 99.0 99.0 Pulse 108 98 B/P 146/78 149/84 Pulse Ox 93 93 O2 Delivery Venturi Mask Venturi Mask O2 Flow Rate 12.0 12.0 Intake and Output 08/21/16 08/21/16 08/22/16 15:00 23:00 07:00 Intake Total 400 ml 900 ml Balance 400 ml 900 ml Images MRI brain: There is a small focus of restricted diffusion in the left cerebellar hemisphere compatible with a small infarct. There is no associated swelling or significant edema. The 4th ventricle is not enlarged. There is no acute intracranial hemorrhage. There is an old left parietal infarct with associated encephalomalacia. Arterial flow voids at the level of the skull base are maintained. There are scattered foci of FLAIR signal hyperintensity in the periventricular white matter which are nonspecific but most likely related to sequelae of chronic small vessel ischemic disease. Paranasal sinuses are clear apart from some partial opacification of the left sphenoid sinus. Mastoid air cells are clear. Impression: - Small acute infarct in the left cerebellar hemisphere with no hemorrhage or associated swelling. - Old left parietal infarct. Carotid Doppler is negative Echocardiogram was negative earlier in the admission for embolic source RUIZ POSADAS MD Aug 22, 2016 09:26
[2016-08-22] MEDS: FUROSEMIDE 20 MG/2 ML VIAL IVP SCH (11:26)
--- NOTE | 2016-08-22 11:30 | PDOC ---
PULMONARY PROGRESS NOTES Subjective BETTER OFF BIPAP Vitals Vital Signs Date Time Temp Pulse Resp B/P Pulse Ox O2 Delivery O2 Flow Rate FiO2 08/22/16 11:27 99 145/59 08/22/16 11:11 93 Venturi Mask 12.0 08/22/16 07:30 99.0 99.0 08/22/16 02:50 22 General: No acute distress, Confused Lungs: Other (decrease bs) Cardiovascular: S1, S2 Abdomen: Soft, Non-tender Extremities: No Edema Labs Laboratory Tests Test 08/20/16 15:00 08/21/16 04:05 08/22/16 04:00 O2 Saturation 94% (92-99) Arterial Blood pH 7.41 (7.35-7.45) Arterial Blood pCO2 at Patient Temp 58mmHg (35-46) Arterial Blood pO2 at Patient Temp 68mmHg (65-108) Arterial Blood HCO3 36mmol/L (21-28) Arterial Blood Base Excess 9mmol/L (-3-3) FiO2 40 White Blood Count 10.8x10^3/uL (4.0-11.0) 6.1x10^3/uL (4.0-11.0) Red Blood Count 4.01x10^6/uL (3.50-5.40) 4.04x10^6/uL (3.50-5.40) Hemoglobin 12.9g/dL (12.0-15.5) 12.9g/dL (12.0-15.5) Hematocrit 39.9% (36.0-47.0) 39.6% (36.0-47.0) Mean Corpuscular Volume 100fL (79-100) 98fL (79-100) Mean Corpuscular Hemoglobin 32pg (25-35) 32pg (25-35) Mean Corpuscular Hemoglobin Concent 32g/dL (31-37) 33g/dL (31-37) Red Cell Distribution Width 13.3% (11.5-14.5) 13.3% (11.5-14.5) Platelet Count 157x10^3/uL (140-400) 138x10^3/uL (140-400) Neutrophils (%) (Auto) 85% (31-73) 78% (31-73) Lymphocytes (%) (Auto) 9% (24-48) 13% (24-48) Monocytes (%) (Auto) 6% (0-9) 8% (0-9) Eosinophils (%) (Auto) 0% (0-3) 1% (0-3) Basophils (%) (Auto) 0% (0-3) 0% (0-3) Neutrophils # (Auto) 9.1x10^3uL (1.8-7.7) 4.8x10^3uL (1.8-7.7) Lymphocytes # (Auto) 1.0x10^3/uL (1.0-4.8) 0.8x10^3/uL (1.0-4.8) Monocytes # (Auto) 0.7x10^3/uL (0.0-1.1) 0.5x10^3/uL (0.0-1.1) Eosinophils # (Auto) 0.0x10^3/uL (0.0-0.7) 0.1x10^3/uL (0.0-0.7) Basophils # (Auto) 0.0x10^3/uL (0.0-0.2) 0.0x10^3/uL (0.0-0.2) Sodium Level 144mmol/L (136-145) 144mmol/L (136-145) Potassium Level 4.6mmol/L (3.5-5.1) 3.8mmol/L (3.5-5.1) Chloride Level 104mmol/L (98-107) 102mmol/L (98-107) Carbon Dioxide Level 40mmol/L (21-32) 39mmol/L (21-32) Anion Gap 0 (6-14) 3 (6-14) Blood Urea Nitrogen 14mg/dL (7-20) 14mg/dL (7-20) Creatinine 0.6mg/dL (0.6-1.0) 0.4mg/dL (0.6-1.0) Estimated GFR (Cockcroft-Gault) 96.4 154.0 Glucose Level 86mg/dL (70-99) 74mg/dL (70-99) Calcium Level 8.9mg/dL (8.5-10.1) 8.4mg/dL (8.5-10.1) Laboratory Tests Test 08/22/16 04:00 White Blood Count 6.1x10^3/uL (4.0-11.0) Red Blood Count 4.04x10^6/uL (3.50-5.40) Hemoglobin 12.9g/dL (12.0-15.5) Hematocrit 39.6% (36.0-47.0) Mean Corpuscular Volume 98fL (79-100) Mean Corpuscular Hemoglobin 32pg (25-35) Mean Corpuscular Hemoglobin Concent 33g/dL (31-37) Red Cell Distribution Width 13.3% (11.5-14.5) Platelet Count 138x10^3/uL (140-400) Neutrophils (%) (Auto) 78% (31-73) Lymphocytes (%) (Auto) 13% (24-48) Monocytes (%) (Auto) 8% (0-9) Eosinophils (%) (Auto) 1% (0-3) Basophils (%) (Auto) 0% (0-3) Neutrophils # (Auto) 4.8x10^3uL (1.8-7.7) Lymphocytes # (Auto) 0.8x10^3/uL (1.0-4.8) Monocytes # (Auto) 0.5x10^3/uL (0.0-1.1) Eosinophils # (Auto) 0.1x10^3/uL (0.0-0.7) Basophils # (Auto) 0.0x10^3/uL (0.0-0.2) Sodium Level 144mmol/L (136-145) Potassium Level 3.8mmol/L (3.5-5.1) Chloride Level 102mmol/L (98-107) Carbon Dioxide Level 39mmol/L (21-32) Anion Gap 3 (6-14) Blood Urea Nitrogen 14mg/dL (7-20) Creatinine 0.4mg/dL (0.6-1.0) Estimated GFR (Cockcroft-Gault) 154.0 Glucose Level 74mg/dL (70-99) Calcium Level 8.4mg/dL (8.5-10.1) Medications Active Scripts Medications Dose Route/Sig Days Date Category Dose Instructions Vitamin B-6 (Pyridoxine Hcl) 50 Mg Tablet 50 Mg PO 08/19/16 Reported Ranitidine Hcl 300 Mg Capsule 1 Cap PO DAILY 08/19/16 Reported Alendronate Sodium 70 Mg Tablet 1 Tab PO WEEKLY 08/19/16 Reported Tramadol Hcl 50 Mg Tablet 1 Tab PO PRN Q6HRS PRN 08/05/16 Rx Prednisone 10 Mg Tablet 10 Mg PO UD 08/04/16 Rx Take 3 tablets by mouth daily for 3 days, then take 2 tablets by mouth daily for 3 days, then take 1 tablet by mouth daily for 3 days, then stop. Levaquin (Levofloxacin) 250 Mg Tablet 250 Mg PO DAILY06 08/04/16 Rx Amox Tr-K Clv 500-125 Mg Tab (Amoxicillin/Potassium Clav) 1 Each Tablet 1 Tab PO BID 07/11/16 Rx Kaopectate (Bismuth Subsalicylate) 262 Mg/15 Ml Oral.susp 30 Ml PO PRN Q8HRS PRN 07/06/16 Reported Mag-Al Plus Xs Suspension (Mag Hydrox/Al Hydrox/Simeth) 30 Ml Oral.susp 30 Ml PO PRN Q4HRS PRN 07/06/16 Reported Albuterol Sulfate Neb Soln (Albuterol Sulfate) 2.5 Mg/3 Ml Vial.neb 2.5 Mg NEB PRN Q6HRS PRN 07/06/16 Reported Vitamin D3 (Cholecalciferol (Vitamin D3)) 1,000 Unit Tablet 1,000 Unit PO BID 07/06/16 Reported Dulcolax (Bisacodyl) 10 Mg Supp.rect 10 Mg RC PRN DAILY PRN 07/06/16 Reported Fleet Enema (Na Phos,M-B/Na Phos,Di-Ba) 133 Ml Enema 1 Each RC PRN PRN 07/06/16 Reported Tylenol (Acetaminophen) 325 Mg Tablet 2 Tab PO PRN Q6HRS PRN 07/06/16 Reported Zolpidem Tartrate 5 Mg Tablet 1 Tab PO PRN QHS PRN 06/29/16 Reported Spiriva (Tiotropium [place]) 18 Mcg Cap.w.dev 1 Cap IH DAILY 03/03/16 Reported Symbicort 160-4.5 Mcg Inhaler (Budesonide/Formoterol Fumarate) 10.2 Gm Hfa.aer.ad 2 Puff IH BID 03/03/16 Reported Proair Hfa Inhaler (Albuterol Sulfate) 8.5 Gm Hfa.aer.ad 2 Puff INH PRN Q6HRS PRN 03/03/16 Reported Metoprolol Tartrate 50 Mg Tablet 1 Tab PO BID 03/03/16 Reported Clopidogrel (Clopidogrel Bisulfate) 75 Mg Tablet 1 Tab PO DAILY 03/03/16 Reported Lasix (Furosemide) 20 Mg Tablet 1 Tab PO DAILY 03/03/16 Reported Impression . 1. Acute on chronic hypercapnic respiratory failure secondary to acute exacerbation of chronic obstructive pulmonary disease. 2. Lethargy and slurring of speech, probably related to CO2 narcosis, 3. Underlying severe chronic obstructive pulmonary disease, which is oxygen dependent. 4. No definite pneumonia seen on the chest x-ray. Plan . 1. Clinically improved with BIPAP 2. Repeat ABGs much improved. 3. Continue with present bronchodilators. 4. Avoid any narcotics. 5. speech f/u 6. Discussed with CHEYANNE ALBERTO MD Aug 22, 2016 11:30
--- NOTE | 2016-08-22 12:06 | PDOC ---
PROGRESS NOTES Chief Complaint Chief Complaint 1. AMS due to hypercapnic respiratory failure improved. 2. 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 Hypertension. 4. Chronic diastolic heart failure. 5. Chronic obstructive pulmonary disease. 6. Mild elevation of troponin. 7. Hypercapnic respiratory failure 8. Dysphagia. Plan PRN BIPAP Supplemental oxygen Re Speech and swallow evaluation Start Tube feeds, Dobbhoff if she fails to eat today Plavix PT/OT ECHO normal EF d/w cardiology home medications reconciled periodic nebulizations prn History of Present Illness History of Present Illness no confusion doing better wants to eat. Vitals Vitals Vital Signs Date Time Temp Pulse Resp B/P Pulse Ox O2 Delivery O2 Flow Rate FiO2 08/22/16 11:31 98.1 99 20 145/59 96 Venturi Mask 12.0 98.1 Physical Exam General: Alert, Oriented X3, Cooperative, No acute distress Heart: Regular rate, Normal S1, Normal S2, No murmurs, Other (tele: SR) Lungs: Other (decrease bs) Abdomen: Normal bowel sounds, Soft Extremities: Other Skin: No rashes, Other Labs LABS Laboratory Tests Test 08/22/16 04:00 White Blood Count 6.1x10^3/uL (4.0-11.0) Red Blood Count 4.04x10^6/uL (3.50-5.40) Hemoglobin 12.9g/dL (12.0-15.5) Hematocrit 39.6% (36.0-47.0) Mean Corpuscular Volume 98fL (79-100) Mean Corpuscular Hemoglobin 32pg (25-35) Mean Corpuscular Hemoglobin Concent 33g/dL (31-37) Red Cell Distribution Width 13.3% (11.5-14.5) Platelet Count 138x10^3/uL (140-400) Neutrophils (%) (Auto) 78% (31-73) Lymphocytes (%) (Auto) 13% (24-48) Monocytes (%) (Auto) 8% (0-9) Eosinophils (%) (Auto) 1% (0-3) Basophils (%) (Auto) 0% (0-3) Neutrophils # (Auto) 4.8x10^3uL (1.8-7.7) Lymphocytes # (Auto) 0.8x10^3/uL (1.0-4.8) Monocytes # (Auto) 0.5x10^3/uL (0.0-1.1) Eosinophils # (Auto) 0.1x10^3/uL (0.0-0.7) Basophils # (Auto) 0.0x10^3/uL (0.0-0.2) Sodium Level 144mmol/L (136-145) Potassium Level 3.8mmol/L (3.5-5.1) Chloride Level 102mmol/L (98-107) Carbon Dioxide Level 39mmol/L (21-32) Anion Gap 3 (6-14) Blood Urea Nitrogen 14mg/dL (7-20) Creatinine 0.4mg/dL (0.6-1.0) Estimated GFR (Cockcroft-Gault) 154.0 Glucose Level 74mg/dL (70-99) Calcium Level 8.4mg/dL (8.5-10.1) Assessment and Plan Assessmemt and Plan Problems Medical Problems: (1) Altered mental status Status: Acute (2) Dysphasia Status: Acute (3) Elevated troponin Status: Acute Problems: Comment Review of Relevant I have reviewed the following items ana laura (where applicable) has been applied. Labs Laboratory Tests Test 08/20/16 15:00 08/21/16 04:05 08/22/16 04:00 O2 Saturation 94% (92-99) Arterial Blood pH 7.41 (7.35-7.45) Arterial Blood pCO2 at Patient Temp 58mmHg (35-46) Arterial Blood pO2 at Patient Temp 68mmHg (65-108) Arterial Blood HCO3 36mmol/L (21-28) Arterial Blood Base Excess 9mmol/L (-3-3) FiO2 40 White Blood Count 10.8x10^3/uL (4.0-11.0) 6.1x10^3/uL (4.0-11.0) Red Blood Count 4.01x10^6/uL (3.50-5.40) 4.04x10^6/uL (3.50-5.40) Hemoglobin 12.9g/dL (12.0-15.5) 12.9g/dL (12.0-15.5) Hematocrit 39.9% (36.0-47.0) 39.6% (36.0-47.0) Mean Corpuscular Volume 100fL (79-100) 98fL (79-100) Mean Corpuscular Hemoglobin 32pg (25-35) 32pg (25-35) Mean Corpuscular Hemoglobin Concent 32g/dL (31-37) 33g/dL (31-37) Red Cell Distribution Width 13.3% (11.5-14.5) 13.3% (11.5-14.5) Platelet Count 157x10^3/uL (140-400) 138x10^3/uL (140-400) Neutrophils (%) (Auto) 85% (31-73) 78% (31-73) Lymphocytes (%) (Auto) 9% (24-48) 13% (24-48) Monocytes (%) (Auto) 6% (0-9) 8% (0-9) Eosinophils (%) (Auto) 0% (0-3) 1% (0-3) Basophils (%) (Auto) 0% (0-3) 0% (0-3) Neutrophils # (Auto) 9.1x10^3uL (1.8-7.7) 4.8x10^3uL (1.8-7.7) Lymphocytes # (Auto) 1.0x10^3/uL (1.0-4.8) 0.8x10^3/uL (1.0-4.8) Monocytes # (Auto) 0.7x10^3/uL (0.0-1.1) 0.5x10^3/uL (0.0-1.1) Eosinophils # (Auto) 0.0x10^3/uL (0.0-0.7) 0.1x10^3/uL (0.0-0.7) Basophils # (Auto) 0.0x10^3/uL (0.0-0.2) 0.0x10^3/uL (0.0-0.2) Sodium Level 144mmol/L (136-145) 144mmol/L (136-145) Potassium Level 4.6mmol/L (3.5-5.1) 3.8mmol/L (3.5-5.1) Chloride Level 104mmol/L (98-107) 102mmol/L (98-107) Carbon Dioxide Level 40mmol/L (21-32) 39mmol/L (21-32) Anion Gap 0 (6-14) 3 (6-14) Blood Urea Nitrogen 14mg/dL (7-20) 14mg/dL (7-20) Creatinine 0.6mg/dL (0.6-1.0) 0.4mg/dL (0.6-1.0) Estimated GFR (Cockcroft-Gault) 96.4 154.0 Glucose Level 86mg/dL (70-99) 74mg/dL (70-99) Calcium Level 8.9mg/dL (8.5-10.1) 8.4mg/dL (8.5-10.1) Laboratory Tests Test 08/22/16 04:00 White Blood Count 6.1x10^3/uL (4.0-11.0) Red Blood Count 4.04x10^6/uL (3.50-5.40) Hemoglobin 12.9g/dL (12.0-15.5) Hematocrit 39.6% (36.0-47.0) Mean Corpuscular Volume 98fL (79-100) Mean Corpuscular Hemoglobin 32pg (25-35) Mean Corpuscular Hemoglobin Concent 33g/dL (31-37) Red Cell Distribution Width 13.3% (11.5-14.5) Platelet Count 138x10^3/uL (140-400) Neutrophils (%) (Auto) 78% (31-73) Lymphocytes (%) (Auto) 13% (24-48) Monocytes (%) (Auto) 8% (0-9) Eosinophils (%) (Auto) 1% (0-3) Basophils (%) (Auto) 0% (0-3) Neutrophils # (Auto) 4.8x10^3uL (1.8-7.7) Lymphocytes # (Auto) 0.8x10^3/uL (1.0-4.8) Monocytes # (Auto) 0.5x10^3/uL (0.0-1.1) Eosinophils # (Auto) 0.1x10^3/uL (0.0-0.7) Basophils # (Auto) 0.0x10^3/uL (0.0-0.2) Sodium Level 144mmol/L (136-145) Potassium Level 3.8mmol/L (3.5-5.1) Chloride Level 102mmol/L (98-107) Carbon Dioxide Level 39mmol/L (21-32) Anion Gap 3 (6-14) Blood Urea Nitrogen 14mg/dL (7-20) Creatinine 0.4mg/dL (0.6-1.0) Estimated GFR (Cockcroft-Gault) 154.0 Glucose Level 74mg/dL (70-99) Calcium Level 8.4mg/dL (8.5-10.1) Medications Current Medications Ondansetron HCl (Zofran) 4 mg PRN Q8HRS PRN IV NAUSEA/VOMITING; Start 08/19/16 at 14:00; Stop 08/20/16 at 13:59; Status DC Acetaminophen (Tylenol) 650 mg PRN Q4HRS PRN PO FEVER; Start 08/19/16 at 14:00 ; Stop 08/20/16 at 13:59; Status DC Acetaminophen (Tylenol) 325 mg PRN Q6HRS PRN PO MILD PAIN / TEMP Last administered on 08/21/16 04:14; Start 08/19/16 at 18:15 Acetaminophen/ Hydrocodone Bitart (Lortab 5/325) 1 tab PRN Q6HRS PRN PO MODERATE TO SEVERE PAIN; Start 08/19/16 at 18:15 Hydralazine HCl (Apresoline) 10 mg PRN Q4HRS PRN IVP ELEVATED BP, SEE COMMENTS ; Start 08/19/16 at 18:15 Ondansetron HCl (Zofran) 4 mg PRN Q8HRS PRN IV NAUSEA/VOMITING; Start 08/19/16 at 18:15 Albuterol Sulfate 2.5 mg 2.5 mg PRN Q4HRS PRN NEB SHORTNESS OF BREATH Last administered on 08/19/16 19:23; Start 08/19/16 at 18:15; Stop 08/20/16 at 22:07 ; Status DC Sodium Chloride (Iv Sodium Chloride 0.9% 1000ml Bag) 1,000 ml @ 75 mls/hr [id number] IV Last administered on 08/22/16 01:09; Start 08/19/16 at 18:15 Vitamin D (Vitamin D3) 1,000 unit BID PO ; Start 08/20/16 at 09:00 Metoprolol Tartrate (Lopressor) 50 mg BID PO Last administered on 08/20/16 20: 50; Start 08/20/16 at 09:00; Stop 08/21/16 at 15:29; Status DC Albuterol Sulfate (Ventolin Neb Soln) 2.5 mg PRN Q6HRS PRN NEB SHORTNESS OF BREATH; Start 08/20/16 at 22:00 Clopidogrel Bisulfate (Plavix) 75 mg DAILY PO Last administered on 08/21/16 11 :46; Start 08/21/16 at 09:00 Furosemide (Lasix) 20 mg DAILY PO Last administered on 08/21/16 11:45; Start 08/21/16 at 09:00; Stop 08/22/16 at 09:55; Status DC Prednisone (Prednisone) 10 mg DAILY PO ; Start 08/21/16 at 09:00; Stop 08/22/16 at 11:16; Status DC Pyridoxine HCl (Vitamin B-6) 50 mg DAILY PO ; Start 08/21/16 at 09:00 Non-Formulary Medication 2 puff PRN Q6HRS PRN INH SHORTNESS OF BREATH; Start at 22:00; Status UNV Non-Formulary Medication 2 puff BID IH ; Start 08/21/16 at 09:00; Status UNV Non-Formulary Medication 1 cap DAILY IH ; Start 08/21/16 at 09:00; Status UNV Budesonide (Pulmicort) 0.5 mg RTBID NEB Last administered on 08/22/16 07:14; Start 08/21/16 at 08:00 Albuterol/ Ipratropium (Duoneb) 3 ml RTQID NEB Last administered on 08/22/16 11:09; Start 08/21/16 at 08:00 Metoprolol Tartrate (Lopressor) 2.5 mg Q6HRS IVP Last administered on 11:27; Start 08/21/16 at 18:00 Furosemide (Lasix) 20 mg 1X ONCE IVP Last administered on 08/21/16 16:19; Start 08/21/16 at 15:30; Stop 08/21/16 at 15:31; Status DC Furosemide (Lasix) 10 mg DAILY IVP Last administered on 08/22/16t 11:26; Start 08/22/16 at 10:00 Active Scripts Active Tramadol Hcl 50 Mg Tablet 1 Tab PO PRN Q6HRS PRN Prednisone 10 Mg Tablet 10 Mg PO UD Take 3 tablets by mouth daily for 3 days, then take 2 tablets by mouth daily for 3 days, then take 1 tablet by mouth daily for 3 days, then stop. Levaquin (Levofloxacin) 250 Mg Tablet 250 Mg PO DAILY06 Amox Tr-K Clv 500-125 Mg Tab (Amoxicillin/Potassium Clav) 1 Each Tablet 1 Tab PO BID Reported Vitamin B-6 (Pyridoxine Hcl) 50 Mg Tablet 50 Mg PO Ranitidine Hcl 300 Mg Capsule 1 Cap PO DAILY Alendronate Sodium 70 Mg Tablet 1 Tab PO WEEKLY Kaopectate (Bismuth Subsalicylate) 262 Mg/15 Ml Oral.susp 30 Ml PO PRN Q8HRS PRN Mag-Al Plus Xs Suspension (Mag Hydrox/Al Hydrox/Simeth) 30 Ml Oral.susp 30 Ml PO PRN Q4HRS PRN Albuterol Sulfate Neb Soln (Albuterol Sulfate) 2.5 Mg/3 Ml Vial.neb 2.5 Mg NEB PRN Q6HRS PRN Vitamin D3 (Cholecalciferol (Vitamin D3)) 1,000 Unit Tablet 1,000 Unit PO BID Dulcolax (Bisacodyl) 10 Mg Supp.rect 10 Mg RC PRN DAILY PRN Fleet Enema (Na Phos,M-B/Na Phos,Di-Ba) 133 Ml Enema 1 Each RC PRN PRN Tylenol (Acetaminophen) 325 Mg Tablet 2 Tab PO PRN Q6HRS PRN Zolpidem Tartrate 5 Mg Tablet 1 Tab PO PRN QHS PRN Spiriva (Tiotropium [place]) 18 Mcg Cap.w.dev 1 Cap IH DAILY Symbicort 160-4.5 Mcg Inhaler (Budesonide/Formoterol Fumarate) 10.2 Gm Hfa.aer.ad 2 Puff IH BID Proair Hfa Inhaler (Albuterol Sulfate) 8.5 Gm Hfa.aer.ad 2 Puff INH PRN Q6HRS PRN Metoprolol Tartrate 50 Mg Tablet 1 Tab PO BID Clopidogrel (Clopidogrel Bisulfate) 75 Mg Tablet 1 Tab PO DAILY Lasix (Furosemide) 20 Mg Tablet 1 Tab PO DAILY Vitals/I & O Vital Sign - Last 24 Hours 08/21/16 08/21/16 08/21/16 08/21/16 12:36 12:38 14:27 15:57 Temp 96.8 96.8 Pulse 83 Resp 20 B/P 140/46 Pulse Ox 96 96 94 O2 Delivery Venturi Mask Venturi Mask Venturi Mask Venturi Mask O2 Flow Rate 12.0 12.0 12.0 08/21/16 08/21/16 08/21/16 08/21/16 17:54 19:29 19:30 20:20 Temp 97.9 97.9 Pulse 86 90 Resp 18 B/P 134/70 131/67 Pulse Ox 94 93 O2 Delivery Venturi Mask Nasal Cannula Venturi Mask O2 Flow Rate 12.0 12.0 12.0 08/21/16 08/21/16 08/22/16 08/22/16 23:10 23:55 02:50 06:32 Temp 98.2 97.6 98.2 97.6 Pulse 87 87 100 108 Resp 18 22 B/P 118/68 118/68 146/78 146/78 Pulse Ox 95 96 O2 Delivery Venturi Mask O2 Flow Rate 12.0 12.0 08/22/16 08/22/16 08/22/16 08/22/16 07:14 07:30 08:00 11:11 Temp 99.0 99.0 Pulse 98 B/P 149/84 Pulse Ox 93 93 93 O2 Delivery Venturi Mask Venturi Mask Venturi Mask Venturi Mask O2 Flow Rate 12.0 12.0 12.0 12.0 08/22/16 08/22/16 11:27 11:31 Temp 98.1 98.1 Pulse 99 99 Resp 20 B/P 145/59 145/59 Pulse Ox 96 O2 Delivery Venturi Mask O2 Flow Rate 12.0 Intake and Output 08/21/16 08/21/16 08/22/16 15:00 23:00 07:00 Intake Total 400 ml 900 ml Balance 400 ml 900 ml LEXY ARRINGTON MD Aug 22, 2016 12:06
[2016-08-22] MEDS ORDERED: BARIUM SULFATE 40% 148 GM PWD PO ONE (13:15)
--- NOTE | 2016-08-22 14:31 | PDOC ---
CARDIO Progress Notes Date and Time Date of Service 08/22/2016 Time of Evaluation 1420 Subjective Subjective: No Chest Pain, No Palpitations, No Dizziness, Other (SOA better) Vitals Vitals Vital Signs Date Time Temp Pulse Resp B/P Pulse Ox O2 Delivery O2 Flow Rate FiO2 08/22/16 11:31 98.1 99 20 145/59 96 Venturi Mask 12.0 98.1 Weight Weight [ ] Input and Output Intake and Output Intake and Output 08/22/16 07:00 Intake Total 1300 ml Balance 1300 ml Intake Oral 0 ml IV Total 400 ml Blood Product IV Normal Saline Flush 900 ml # Voids 6 Laboratory Labs Laboratory Tests Test 08/22/16 04:00 White Blood Count 6.1x10^3/uL (4.0-11.0) Red Blood Count 4.04x10^6/uL (3.50-5.40) Hemoglobin 12.9g/dL (12.0-15.5) Hematocrit 39.6% (36.0-47.0) Mean Corpuscular Volume 98fL (79-100) Mean Corpuscular Hemoglobin 32pg (25-35) Mean Corpuscular Hemoglobin Concent 33g/dL (31-37) Red Cell Distribution Width 13.3% (11.5-14.5) Platelet Count 138x10^3/uL (140-400) Neutrophils (%) (Auto) 78% (31-73) Lymphocytes (%) (Auto) 13% (24-48) Monocytes (%) (Auto) 8% (0-9) Eosinophils (%) (Auto) 1% (0-3) Basophils (%) (Auto) 0% (0-3) Neutrophils # (Auto) 4.8x10^3uL (1.8-7.7) Lymphocytes # (Auto) 0.8x10^3/uL (1.0-4.8) Monocytes # (Auto) 0.5x10^3/uL (0.0-1.1) Eosinophils # (Auto) 0.1x10^3/uL (0.0-0.7) Basophils # (Auto) 0.0x10^3/uL (0.0-0.2) Sodium Level 144mmol/L (136-145) Potassium Level 3.8mmol/L (3.5-5.1) Chloride Level 102mmol/L (98-107) Carbon Dioxide Level 39mmol/L (21-32) Anion Gap 3 (6-14) Blood Urea Nitrogen 14mg/dL (7-20) Creatinine 0.4mg/dL (0.6-1.0) Estimated GFR (Cockcroft-Gault) 154.0 Glucose Level 74mg/dL (70-99) Calcium Level 8.4mg/dL (8.5-10.1) Case Discussion Case Discussed with: Family Physical Exam HEENT: Neck Supple W Full Motion Chest: Symmetric LUNGS: Other (coarse) Heart: S1S2, RRR (MAT), other (tele: SR/ST) Abdomen: Soft N/T Extremities: No Edema, No Calf Tenderness Neurology: alert, oriented, follow commands Assessment Assessment 1. Acute respiratory failure with underlying COPD/mod pulmonary HTN Better, off bipap Failed swallow eval, NPO. video swallow pending 2. Acute left cerebellar stroke per Neuro On plavix. Will need NGT for po meds if remains NPO. 3. Elevated troponin peak @ 0.08 suspect demand mediated 4. HTN controlled, continue with regimen 5. Chronic diastolic HF; preserved LV function compensated continue medical management 6. Tachycardia: appears MAT Continue with low dose IV Lopressor (Increase) and will need to transition to cardizem IR if NGT otherwise DARLINE AG APRN Aug 22, 2016 14:31
--- NOTE | 2016-08-22 14:56 | RAD ---
EXAM: Modified barium swallow. HISTORY: Dysphagia. FINDINGS: Barium contrast material was administered orally and multiple consistencies under the direction of speech pathology, and followed in its course during swallowing with video fluoroscopy. A fluoroscopic image was obtained. Fluoroscopy time 2.6 minutes. The patient was tachypneic during the study, leading to delay in swallowing. There was deep laryngeal penetration on one occasion with thin liquids from a splint. Otherwise, there was no significant aspiration or laryngeal penetration. IMPRESSION: 1. Laryngeal penetration with thin liquids on one occasion may have related to shortness of breath/tachypnea. Refer to the full report by speech pathology for more detail.
[2016-08-22] MEDS ORDERED: METOPROLOL TARTRATE 5 MG/5 ML VIAL. IVP SCH (18:00)
[2016-08-22] MEDS: DILTIAZEM HCL 30 MG TABLET PO SCH ×2 (18:01→22:54)
[2016-08-22] MEDS: TEMAZEPAM 15 MG CAPSULE PO PRN (22:54)
[2016-08-23 03:26] VITALS: BP 110/59
[2016-08-23 06:01] LABS: CALCIUM 8.6 mg/dL (8.5-10.1); CREATININE 0.4 mg/dL (0.6-1.0); POTASSIUM 3.5 mmol/L (3.5-5.1)
[2016-08-23 06:16] LABS: BASO % 0 % (0-3); EOS % 2 % (0-3); HEMATOCRIT 40.8 % (36.0-47.0); HEMOGLOBIN 13.4 g/dL (12.0-15.5); LYMPH # 1.1 x10^3/uL (1.0-4.8); LYMPH % 18 % (24-48); MEAN CORPUSCULAR HEMOGLOBIN 32 pg (25-35); MEAN CORPUSCULAR HGB CONC 33 g/dL (31-37); MEAN CORPUSCULAR VOLUME 98 fL (79-100); MONO % 9 % (0-9); NEUT % 72 % (31-73); PLATELET COUNT 154 x10^3/uL (140-400); RED BLOOD COUNT 4.19 x10^6/uL (3.50-5.40); RED CELL DISTRIBUTION WIDTH 13.2 % (11.5-14.5); WHITE BLOOD COUNT 6.2 x10^3/uL (4.0-11.0)
[2016-08-23] MEDS: DILTIAZEM HCL 30 MG TABLET PO SCH ×3 (06:17→17:54)
[2016-08-23 07:00] VITALS: BP 149/69
[2016-08-23] MEDS: BUDESONIDE 0.5 MG/2 ML NEBU NEB SCH ×2 (07:32→18:13)
[2016-08-23] MEDS: IPRATRPIUM/ALBUTEROL 0.5/2.5MG 3 ML NEBU. NEB SCH ×4 (07:32→18:14)
[2016-08-23] MEDS: PYRIDOXINE 50 MG TABLET. PO SCH (08:46)
[2016-08-23] MEDS: CLOPIDOGREL BISULFATE 75 MG TABLET PO SCH (08:46)
[2016-08-23] MEDS: CHOLECALCIFEROL (VITAMIN D3) 1,000 UNIT TABLET PO SCH ×2 (08:46→20:24)
[2016-08-23] MEDS: FUROSEMIDE 20 MG/2 ML VIAL IVP SCH (08:46)
[2016-08-23 10:57] VITALS: BP 116/52
--- NOTE | 2016-08-23 11:22 | PDOC ---
PROGRESS NOTES Chief Complaint Chief Complaint 1. AMS due to hypercapnic respiratory failure improved. 2. 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 Hypertension. 4. Chronic diastolic heart failure. 5. Chronic obstructive pulmonary disease. 6. Mild elevation of troponin. 7. Hypercapnic respiratory failure 8. Dysphagia. History of Present Illness History of Present Illness Patient awake, alert, and oriented when seen and examined this AM. Pt states that she is doing "ok" but feels like she is making improvement. Pt denies any current CP or SOA. Pt also denies any current N/V/D. VSS- All questions and concerns addressed and answered. Vitals Vitals Vital Signs Date Time Temp Pulse Resp B/P Pulse Ox O2 Delivery O2 Flow Rate FiO2 08/23/16 11:03 Nasal Cannula 5.0 08/23/16 10:57 98.1 110 24 116/52 95 98.1 Physical Exam General: Alert, Oriented X3, Cooperative, No acute distress Heart: Regular rate, Normal S1, Normal S2, No murmurs, Other (tele: SR) Lungs: Other (decrease bs) Abdomen: Normal bowel sounds, Soft Extremities: Other Skin: No rashes, Other Labs LABS Laboratory Tests Test 08/23/16 05:00 White Blood Count 6.2x10^3/uL (4.0-11.0) Red Blood Count 4.19x10^6/uL (3.50-5.40) Hemoglobin 13.4g/dL (12.0-15.5) Hematocrit 40.8% (36.0-47.0) Mean Corpuscular Volume 98fL (79-100) Mean Corpuscular Hemoglobin 32pg (25-35) Mean Corpuscular Hemoglobin Concent 33g/dL (31-37) Red Cell Distribution Width 13.2% (11.5-14.5) Platelet Count 154x10^3/uL (140-400) Neutrophils (%) (Auto) 72% (31-73) Lymphocytes (%) (Auto) 18% (24-48) Monocytes (%) (Auto) 9% (0-9) Eosinophils (%) (Auto) 2% (0-3) Basophils (%) (Auto) 0% (0-3) Neutrophils # (Auto) 4.4x10^3uL (1.8-7.7) Lymphocytes # (Auto) 1.1x10^3/uL (1.0-4.8) Monocytes # (Auto) 0.5x10^3/uL (0.0-1.1) Eosinophils # (Auto) 0.1x10^3/uL (0.0-0.7) Basophils # (Auto) 0.0x10^3/uL (0.0-0.2) Sodium Level 145mmol/L (136-145) Potassium Level 3.5mmol/L (3.5-5.1) Chloride Level 104mmol/L (98-107) Carbon Dioxide Level 37mmol/L (21-32) Anion Gap 4 (6-14) Blood Urea Nitrogen 8mg/dL (7-20) Creatinine 0.4mg/dL (0.6-1.0) Estimated GFR (Cockcroft-Gault) 154.0 Glucose Level 82mg/dL (70-99) Calcium Level 8.6mg/dL (8.5-10.1) Review of Systems Review of Systems Patient complaint of hunger Patient complaint of fatigue e Assessment and Plan Assessmemt and Plan Problems Medical Problems: (1) Altered mental status Status: Acute (2) Dysphasia Status: Acute (3) Elevated troponin Status: Acute Assessment: 1. AMS due to hypercapnic respiratory failure improved. 2. 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 Hypertension. 4. Chronic diastolic heart failure. 5. Chronic obstructive pulmonary disease. 6. Mild elevation of troponin. 7. Hypercapnic respiratory failure 8. Dysphagia. Plan: Continue to monitor the patient per floor protocol Continue daily labs- CBC, BMP, BUN and Cr Continue IVFs at 75 cc/hr Daily PTOT Appreciate all subspecialty input and recommendations ANNABEL RN Problems: Comment Review of Relevant I have reviewed the following items ana laura (where applicable) has been applied. Labs Laboratory Tests Test 08/22/16 04:00 08/23/16 05:00 White Blood Count 6.1x10^3/uL (4.0-11.0) 6.2x10^3/uL (4.0-11.0) Red Blood Count 4.04x10^6/uL (3.50-5.40) 4.19x10^6/uL (3.50-5.40) Hemoglobin 12.9g/dL (12.0-15.5) 13.4g/dL (12.0-15.5) Hematocrit 39.6% (36.0-47.0) 40.8% (36.0-47.0) Mean Corpuscular Volume 98fL (79-100) 98fL (79-100) Mean Corpuscular Hemoglobin 32pg (25-35) 32pg (25-35) Mean Corpuscular Hemoglobin Concent 33g/dL (31-37) 33g/dL (31-37) Red Cell Distribution Width 13.3% (11.5-14.5) 13.2% (11.5-14.5) Platelet Count 138x10^3/uL (140-400) 154x10^3/uL (140-400) Neutrophils (%) (Auto) 78% (31-73) 72% (31-73) Lymphocytes (%) (Auto) 13% (24-48) 18% (24-48) Monocytes (%) (Auto) 8% (0-9) 9% (0-9) Eosinophils (%) (Auto) 1% (0-3) 2% (0-3) Basophils (%) (Auto) 0% (0-3) 0% (0-3) Neutrophils # (Auto) 4.8x10^3uL (1.8-7.7) 4.4x10^3uL (1.8-7.7) Lymphocytes # (Auto) 0.8x10^3/uL (1.0-4.8) 1.1x10^3/uL (1.0-4.8) Monocytes # (Auto) 0.5x10^3/uL (0.0-1.1) 0.5x10^3/uL (0.0-1.1) Eosinophils # (Auto) 0.1x10^3/uL (0.0-0.7) 0.1x10^3/uL (0.0-0.7) Basophils # (Auto) 0.0x10^3/uL (0.0-0.2) 0.0x10^3/uL (0.0-0.2) Sodium Level 144mmol/L (136-145) 145mmol/L (136-145) Potassium Level 3.8mmol/L (3.5-5.1) 3.5mmol/L (3.5-5.1) Chloride Level 102mmol/L (98-107) 104mmol/L (98-107) Carbon Dioxide Level 39mmol/L (21-32) 37mmol/L (21-32) Anion Gap 3 (6-14) 4 (6-14) Blood Urea Nitrogen 14mg/dL (7-20) 8mg/dL (7-20) Creatinine 0.4mg/dL (0.6-1.0) 0.4mg/dL (0.6-1.0) Estimated GFR (Cockcroft-Gault) 154.0 154.0 Glucose Level 74mg/dL (70-99) 82mg/dL (70-99) Calcium Level 8.4mg/dL (8.5-10.1) 8.6mg/dL (8.5-10.1) Laboratory Tests Test 08/23/16 05:00 White Blood Count 6.2x10^3/uL (4.0-11.0) Red Blood Count 4.19x10^6/uL (3.50-5.40) Hemoglobin 13.4g/dL (12.0-15.5) Hematocrit 40.8% (36.0-47.0) Mean Corpuscular Volume 98fL (79-100) Mean Corpuscular Hemoglobin 32pg (25-35) Mean Corpuscular Hemoglobin Concent 33g/dL (31-37) Red Cell Distribution Width 13.2% (11.5-14.5) Platelet Count 154x10^3/uL (140-400) Neutrophils (%) (Auto) 72% (31-73) Lymphocytes (%) (Auto) 18% (24-48) Monocytes (%) (Auto) 9% (0-9) Eosinophils (%) (Auto) 2% (0-3) Basophils (%) (Auto) 0% (0-3) Neutrophils # (Auto) 4.4x10^3uL (1.8-7.7) Lymphocytes # (Auto) 1.1x10^3/uL (1.0-4.8) Monocytes # (Auto) 0.5x10^3/uL (0.0-1.1) Eosinophils # (Auto) 0.1x10^3/uL (0.0-0.7) Basophils # (Auto) 0.0x10^3/uL (0.0-0.2) Sodium Level 145mmol/L (136-145) Potassium Level 3.5mmol/L (3.5-5.1) Chloride Level 104mmol/L (98-107) Carbon Dioxide Level 37mmol/L (21-32) Anion Gap 4 (6-14) Blood Urea Nitrogen 8mg/dL (7-20) Creatinine 0.4mg/dL (0.6-1.0) Estimated GFR (Cockcroft-Gault) 154.0 Glucose Level 82mg/dL (70-99) Calcium Level 8.6mg/dL (8.5-10.1) Medications Current Medications Ondansetron HCl (Zofran) 4 mg PRN Q8HRS PRN IV NAUSEA/VOMITING; Start 08/19/16 at 14:00; Stop 08/20/16 at 13:59; Status DC Acetaminophen (Tylenol) 650 mg PRN Q4HRS PRN PO FEVER; Start 08/19/16 at 14:00 ; Stop 08/20/16 at 13:59; Status DC Acetaminophen (Tylenol) 325 mg PRN Q6HRS PRN PO MILD PAIN / TEMP Last administered on 08/21/16t 04:14; Start 08/19/16 at 18:15 Acetaminophen/ Hydrocodone Bitart (Lortab 5/325) 1 tab PRN Q6HRS PRN PO MODERATE TO SEVERE PAIN; Start 08/19/16 at 18:15 Hydralazine HCl (Apresoline) 10 mg PRN Q4HRS PRN IVP ELEVATED BP, SEE COMMENTS ; Start 08/19/16 at 18:15 Ondansetron HCl (Zofran) 4 mg PRN Q8HRS PRN IV NAUSEA/VOMITING; Start 08/19/16 at 18:15 Albuterol Sulfate 2.5 mg 2.5 mg PRN Q4HRS PRN NEB SHORTNESS OF BREATH Last administered on 08/19/16t 19:23; Start 08/19/16 at 18:15; Stop 08/20/16 at 22:07 ; Status DC Sodium Chloride (Iv Sodium Chloride 0.9% 1000ml Bag) 1,000 ml @ 75 mls/hr [id number] IV Last administered on 08/22/16 21:13; Start 08/19/16 at 18:15 Vitamin D (Vitamin D3) 1,000 unit BID PO Last administered on 08/23/16 08:46; Start 08/20/16 at 09:00 Metoprolol Tartrate (Lopressor) 50 mg BID PO Last administered on 08/20/16 20: 50; Start 08/20/16 at 09:00; Stop 08/21/16 at 15:29; Status DC Albuterol Sulfate (Ventolin Neb Soln) 2.5 mg PRN Q6HRS PRN NEB SHORTNESS OF BREATH; Start 08/20/16 at 22:00 Clopidogrel Bisulfate (Plavix) 75 mg DAILY PO Last administered on 08/23/16 08 :46; Start 08/21/16 at 09:00 Furosemide (Lasix) 20 mg DAILY PO Last administered on 08/21/16 11:45; Start 08/21/16 at 09:00; Stop 08/22/16 at 09:55; Status DC Prednisone (Prednisone) 10 mg DAILY PO ; Start 08/21/16 at 09:00; Stop 08/22/16 at 11:16; Status DC Pyridoxine HCl (Vitamin B-6) 50 mg DAILY PO Last administered on 08/23/16 08: 46; Start 08/21/16 at 09:00 Non-Formulary Medication 2 puff PRN Q6HRS PRN INH SHORTNESS OF BREATH; Start at 22:00; Status UNV Non-Formulary Medication 2 puff BID IH ; Start 08/21/16 at 09:00; Status UNV Non-Formulary Medication 1 cap DAILY IH ; Start 08/21/16 at 09:00; Status UNV Budesonide (Pulmicort) 0.5 mg RTBID NEB Last administered on 08/23/16 07:32; Start 08/21/16 at 08:00 Albuterol/ Ipratropium (Duoneb) 3 ml RTQID NEB Last administered on 08/23/16 11:02; Start 08/21/16 at 08:00 Metoprolol Tartrate (Lopressor) 2.5 mg Q6HRS IVP Last administered on 11:27; Start 08/21/16 at 18:00; Stop 08/22/16 at 16:24; Status DC Furosemide (Lasix) 20 mg 1X ONCE IVP Last administered on 08/21/16 16:19; Start 08/21/16 at 15:30; Stop 08/21/16 at 15:31; Status DC Furosemide (Lasix) 10 mg DAILY IVP Last administered on 08/23/16 08:46; Start 08/22/16 at 10:00 Barium Sulfate (Varibar Thin Liquid) 148 gm 1X ONCE PO Last administered on 14:35; Start 08/22/16 at 13:15; Stop 08/22/16 at 13:16; Status DC Metoprolol Tartrate (Lopressor) 5 mg Q6HRS IVP ; Start 08/22/16 at 18:00; Stop 08/22/16 at 18:00; Status DC Diltiazem HCl (Cardizem) 30 mg Q6HRS PO Last administered on 08/23/16 06:17; Start 08/22/16 at 18:00; Stop 08/23/16 at 10:15; Status DC Temazepam (Restoril) 15 mg PRN QHS PRN PO INSOMNIA Last administered on 22:54; Start 08/22/16 at 22:45 Diltiazem HCl (Cardizem) 60 mg Q6HRS PO ; Start 08/23/16 at 12:00 Active Scripts Active Tramadol Hcl 50 Mg Tablet 1 Tab PO PRN Q6HRS PRN Prednisone 10 Mg Tablet 10 Mg PO UD Take 3 tablets by mouth daily for 3 days, then take 2 tablets by mouth daily for 3 days, then take 1 tablet by mouth daily for 3 days, then stop. Levaquin (Levofloxacin) 250 Mg Tablet 250 Mg PO DAILY06 Amox Tr-K Clv 500-125 Mg Tab (Amoxicillin/Potassium Clav) 1 Each Tablet 1 Tab PO BID Reported Vitamin B-6 (Pyridoxine Hcl) 50 Mg Tablet 50 Mg PO Ranitidine Hcl 300 Mg Capsule 1 Cap PO DAILY Alendronate Sodium 70 Mg Tablet 1 Tab PO WEEKLY Kaopectate (Bismuth Subsalicylate) 262 Mg/15 Ml Oral.susp 30 Ml PO PRN Q8HRS PRN Mag-Al Plus Xs Suspension (Mag Hydrox/Al Hydrox/Simeth) 30 Ml Oral.susp 30 Ml PO PRN Q4HRS PRN Albuterol Sulfate Neb Soln (Albuterol Sulfate) 2.5 Mg/3 Ml Vial.neb 2.5 Mg NEB PRN Q6HRS PRN Vitamin D3 (Cholecalciferol (Vitamin D3)) 1,000 Unit Tablet 1,000 Unit PO BID Dulcolax (Bisacodyl) 10 Mg Supp.rect 10 Mg RC PRN DAILY PRN Fleet Enema (Na Phos,M-B/Na Phos,Di-Ba) 133 Ml Enema 1 Each RC PRN PRN Tylenol (Acetaminophen) 325 Mg Tablet 2 Tab PO PRN Q6HRS PRN Zolpidem Tartrate 5 Mg Tablet 1 Tab PO PRN QHS PRN Spiriva (Tiotropium [place]) 18 Mcg Cap.w.dev 1 Cap IH DAILY Symbicort 160-4.5 Mcg Inhaler (Budesonide/Formoterol Fumarate) 10.2 Gm Hfa.aer.ad 2 Puff IH BID Proair Hfa Inhaler (Albuterol Sulfate) 8.5 Gm Hfa.aer.ad 2 Puff INH PRN Q6HRS PRN Metoprolol Tartrate 50 Mg Tablet 1 Tab PO BID Clopidogrel (Clopidogrel Bisulfate) 75 Mg Tablet 1 Tab PO DAILY Lasix (Furosemide) 20 Mg Tablet 1 Tab PO DAILY Vitals/I & O Vital Sign - Last 24 Hours 08/22/16 08/22/16 08/22/16 08/22/16 11:27 11:31 15:05 15:38 Temp 98.1 98.9 98.1 98.9 Pulse 99 99 101 Resp 20 20 B/P 145/59 145/59 93/69 145/63 Pulse Ox 96 94 O2 Delivery Venturi Mask Nasal Cannula O2 Flow Rate 12.0 08/22/16 08/22/16 08/22/16 08/22/16 18:01 19:55 20:00 22:54 Temp 98.5 98.5 Pulse 109 113 115 Resp 28 B/P 145/63 144/75 Pulse Ox 95 O2 Delivery Nasal Cannula Nasal Cannula O2 Flow Rate 6.0 5.0 2/24/17 2/25/17 2/25/17 2/25/17 22:55 03:26 06:17 07:00 Temp 98.4 98.2 98.1 98.4 98.2 98.1 Pulse 106 66 114 117 Resp 23 B/P 134/68 110/59 149/69 Pulse Ox 98 97 96 O2 Delivery Nasal Cannula Nasal Cannula Nasal Cannula O2 Flow Rate 6.0 6.0 08/23/16 08/23/16 08/23/16 08/23/16 07:32 08:00 08:00 10:57 Temp 98.1 98.1 Pulse 110 Resp 24 B/P 116/52 Pulse Ox 96 95 O2 Delivery Nasal Cannula Nasal Cannula Nasal Cannula O2 Flow Rate 5.0 5.0 5.0 08/23/16 11:03 O2 Delivery Nasal Cannula O2 Flow Rate 5.0 Intake and Output 08/22/16 08/22/16 08/23/16 15:00 23:00 07:00 Intake Total 75 ml Balance 75 ml ROGELIO OSMAN III, DO Aug 23, 2016 11:22
--- NOTE | 2016-08-23 13:58 | PDOC ---
PULMONARY PROGRESS NOTES Subjective continues to improve slowly Vitals Vital Signs Date Time Temp Pulse Resp B/P Pulse Ox O2 Delivery O2 Flow Rate FiO2 08/23/16 12:00 110 116/52 08/23/16 11:03 Nasal Cannula 5.0 08/23/16 10:57 98.1 24 95 98.1 General: Alert, No acute distress Lungs: Other (decrease bs) Cardiovascular: S1, S2 Abdomen: Soft, Non-tender Neuro Exam: Alert Extremities: No Edema Labs Laboratory Tests Test 08/22/16 04:00 08/23/16 05:00 White Blood Count 6.1x10^3/uL (4.0-11.0) 6.2x10^3/uL (4.0-11.0) Red Blood Count 4.04x10^6/uL (3.50-5.40) 4.19x10^6/uL (3.50-5.40) Hemoglobin 12.9g/dL (12.0-15.5) 13.4g/dL (12.0-15.5) Hematocrit 39.6% (36.0-47.0) 40.8% (36.0-47.0) Mean Corpuscular Volume 98fL (79-100) 98fL (79-100) Mean Corpuscular Hemoglobin 32pg (25-35) 32pg (25-35) Mean Corpuscular Hemoglobin Concent 33g/dL (31-37) 33g/dL (31-37) Red Cell Distribution Width 13.3% (11.5-14.5) 13.2% (11.5-14.5) Platelet Count 138x10^3/uL (140-400) 154x10^3/uL (140-400) Neutrophils (%) (Auto) 78% (31-73) 72% (31-73) Lymphocytes (%) (Auto) 13% (24-48) 18% (24-48) Monocytes (%) (Auto) 8% (0-9) 9% (0-9) Eosinophils (%) (Auto) 1% (0-3) 2% (0-3) Basophils (%) (Auto) 0% (0-3) 0% (0-3) Neutrophils # (Auto) 4.8x10^3uL (1.8-7.7) 4.4x10^3uL (1.8-7.7) Lymphocytes # (Auto) 0.8x10^3/uL (1.0-4.8) 1.1x10^3/uL (1.0-4.8) Monocytes # (Auto) 0.5x10^3/uL (0.0-1.1) 0.5x10^3/uL (0.0-1.1) Eosinophils # (Auto) 0.1x10^3/uL (0.0-0.7) 0.1x10^3/uL (0.0-0.7) Basophils # (Auto) 0.0x10^3/uL (0.0-0.2) 0.0x10^3/uL (0.0-0.2) Sodium Level 144mmol/L (136-145) 145mmol/L (136-145) Potassium Level 3.8mmol/L (3.5-5.1) 3.5mmol/L (3.5-5.1) Chloride Level 102mmol/L (98-107) 104mmol/L (98-107) Carbon Dioxide Level 39mmol/L (21-32) 37mmol/L (21-32) Anion Gap 3 (6-14) 4 (6-14) Blood Urea Nitrogen 14mg/dL (7-20) 8mg/dL (7-20) Creatinine 0.4mg/dL (0.6-1.0) 0.4mg/dL (0.6-1.0) Estimated GFR (Cockcroft-Gault) 154.0 154.0 Glucose Level 74mg/dL (70-99) 82mg/dL (70-99) Calcium Level 8.4mg/dL (8.5-10.1) 8.6mg/dL (8.5-10.1) Laboratory Tests Test 08/23/16 05:00 White Blood Count 6.2x10^3/uL (4.0-11.0) Red Blood Count 4.19x10^6/uL (3.50-5.40) Hemoglobin 13.4g/dL (12.0-15.5) Hematocrit 40.8% (36.0-47.0) Mean Corpuscular Volume 98fL (79-100) Mean Corpuscular Hemoglobin 32pg (25-35) Mean Corpuscular Hemoglobin Concent 33g/dL (31-37) Red Cell Distribution Width 13.2% (11.5-14.5) Platelet Count 154x10^3/uL (140-400) Neutrophils (%) (Auto) 72% (31-73) Lymphocytes (%) (Auto) 18% (24-48) Monocytes (%) (Auto) 9% (0-9) Eosinophils (%) (Auto) 2% (0-3) Basophils (%) (Auto) 0% (0-3) Neutrophils # (Auto) 4.4x10^3uL (1.8-7.7) Lymphocytes # (Auto) 1.1x10^3/uL (1.0-4.8) Monocytes # (Auto) 0.5x10^3/uL (0.0-1.1) Eosinophils # (Auto) 0.1x10^3/uL (0.0-0.7) Basophils # (Auto) 0.0x10^3/uL (0.0-0.2) Sodium Level 145mmol/L (136-145) Potassium Level 3.5mmol/L (3.5-5.1) Chloride Level 104mmol/L (98-107) Carbon Dioxide Level 37mmol/L (21-32) Anion Gap 4 (6-14) Blood Urea Nitrogen 8mg/dL (7-20) Creatinine 0.4mg/dL (0.6-1.0) Estimated GFR (Cockcroft-Gault) 154.0 Glucose Level 82mg/dL (70-99) Calcium Level 8.6mg/dL (8.5-10.1) Medications Active Scripts Medications Dose Route/Sig Days Date Category Dose Instructions Vitamin B-6 (Pyridoxine Hcl) 50 Mg Tablet 50 Mg PO 08/19/16 Reported Ranitidine Hcl 300 Mg Capsule 1 Cap PO DAILY 08/19/16 Reported Alendronate Sodium 70 Mg Tablet 1 Tab PO WEEKLY 08/19/16 Reported Tramadol Hcl 50 Mg Tablet 1 Tab PO PRN Q6HRS PRN 08/05/16 Rx Prednisone 10 Mg Tablet 10 Mg PO UD 08/04/16 Rx Take 3 tablets by mouth daily for 3 days, then take 2 tablets by mouth daily for 3 days, then take 1 tablet by mouth daily for 3 days, then stop. Levaquin (Levofloxacin) 250 Mg Tablet 250 Mg PO DAILY06 08/04/16 Rx Amox Tr-K Clv 500-125 Mg Tab (Amoxicillin/Potassium Clav) 1 Each Tablet 1 Tab PO BID 07/11/16 Rx Kaopectate (Bismuth Subsalicylate) 262 Mg/15 Ml Oral.susp 30 Ml PO PRN Q8HRS PRN 07/06/16 Reported Mag-Al Plus Xs Suspension (Mag Hydrox/Al Hydrox/Simeth) 30 Ml Oral.susp 30 Ml PO PRN Q4HRS PRN 07/06/16 Reported Albuterol Sulfate Neb Soln (Albuterol Sulfate) 2.5 Mg/3 Ml Vial.neb 2.5 Mg NEB PRN Q6HRS PRN 07/06/16 Reported Vitamin D3 (Cholecalciferol (Vitamin D3)) 1,000 Unit Tablet 1,000 Unit PO BID 07/06/16 Reported Dulcolax (Bisacodyl) 10 Mg Supp.rect 10 Mg RC PRN DAILY PRN 07/06/16 Reported Fleet Enema (Na Phos,M-B/Na Phos,Di-Ba) 133 Ml Enema 1 Each RC PRN PRN 07/06/16 Reported Tylenol (Acetaminophen) 325 Mg Tablet 2 Tab PO PRN Q6HRS PRN 07/06/16 Reported Zolpidem Tartrate 5 Mg Tablet 1 Tab PO PRN QHS PRN 06/29/16 Reported Spiriva (Tiotropium [place]) 18 Mcg Cap.w.dev 1 Cap IH DAILY 03/03/16 Reported Symbicort 160-4.5 Mcg Inhaler (Budesonide/Formoterol Fumarate) 10.2 Gm Hfa.aer.ad 2 Puff IH BID 03/03/16 Reported Proair Hfa Inhaler (Albuterol Sulfate) 8.5 Gm Hfa.aer.ad 2 Puff INH PRN Q6HRS PRN 03/03/16 Reported Metoprolol Tartrate 50 Mg Tablet 1 Tab PO BID 03/03/16 Reported Clopidogrel (Clopidogrel Bisulfate) 75 Mg Tablet 1 Tab PO DAILY 03/03/16 Reported Lasix (Furosemide) 20 Mg Tablet 1 Tab PO DAILY 03/03/16 Reported Impression . 1. Acute on chronic hypercapnic respiratory failure secondary to acute exacerbation of chronic obstructive pulmonary disease. 2. 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 3. Underlying severe chronic obstructive pulmonary disease, which is oxygen dependent. 4. No definite pneumonia seen on the chest x-ray. Plan . 1. Clinically improved with BIPAP/ now on nasal canula only 2. Repeat ABGs much improved. 3. Continue with present bronchodilators. 4. Avoid any narcotics. 5. speech f/u, on dysphagia diet 6. Discussed with RN 7. Back to skill thursday CHEYANNE SUTHERLAND MD Aug 23, 2016 13:58
[2016-08-23 15:13] VITALS: BP 124/84
[2016-08-23] MEDS: IV NORMAL SALINE 1000ML BAG 1,000 ML IV SCH ×2 (15:35→17:54)
[2016-08-23 19:45] VITALS: BP 125/56
[2016-08-23] MEDS: TEMAZEPAM 15 MG CAPSULE PO PRN (20:24)
[2016-08-23 23:40] VITALS: BP 109/54
[2016-08-24] MEDS: DILTIAZEM HCL 30 MG TABLET PO SCH ×4 (02:24→18:17)
[2016-08-24 03:05] VITALS: BP 116/52
[2016-08-24 06:20] LABS: BASO % 1 % (0-3); EOS % 2 % (0-3); HEMATOCRIT 39.9 % (36.0-47.0); HEMOGLOBIN 12.8 g/dL (12.0-15.5); LYMPH # 0.8 x10^3/uL (1.0-4.8); LYMPH % 14 % (24-48); MEAN CORPUSCULAR HEMOGLOBIN 32 pg (25-35); MEAN CORPUSCULAR HGB CONC 32 g/dL (31-37); MEAN CORPUSCULAR VOLUME 99 fL (79-100); MONO % 8 % (0-9); NEUT % 76 % (31-73); PLATELET COUNT 150 x10^3/uL (140-400); RED BLOOD COUNT 4.03 x10^6/uL (3.50-5.40); RED CELL DISTRIBUTION WIDTH 13.5 % (11.5-14.5)
[2016-08-24 06:39] LABS: CALCIUM 8.7 mg/dL (8.5-10.1); CREATININE 0.4 mg/dL (0.6-1.0); POTASSIUM 3.4 mmol/L (3.5-5.1)
[2016-08-24 07:04] VITALS: BP 140/59
[2016-08-24] MEDS: BUDESONIDE 0.5 MG/2 ML NEBU NEB SCH ×2 (07:12→19:14)
[2016-08-24] MEDS: IPRATRPIUM/ALBUTEROL 0.5/2.5MG 3 ML NEBU. NEB SCH ×4 (07:12→19:14)
[2016-08-24] MEDS: FUROSEMIDE 20 MG/2 ML VIAL IVP SCH (09:00)
[2016-08-24] MEDS: CLOPIDOGREL BISULFATE 75 MG TABLET PO SCH (09:12)
[2016-08-24] MEDS: PYRIDOXINE 50 MG TABLET. PO SCH (09:12)
[2016-08-24] MEDS: CHOLECALCIFEROL (VITAMIN D3) 1,000 UNIT TABLET PO SCH ×2 (09:12→21:08)
--- NOTE | 2016-08-24 09:47 | PDOC ---
PULMONARY PROGRESS NOTES Subjective continues to improve Vitals Vital Signs Date Time Temp Pulse Resp B/P Pulse Ox O2 Delivery O2 Flow Rate FiO2 08/24/16 08:00 Nasal Cannula 5.0 08/24/16 07:21 88 140/59 08/24/16 07:12 96 08/24/16 07:04 97.6 26 97.6 General: Alert, No acute distress Lungs: Other (decrease bs) Cardiovascular: S1, S2 Abdomen: Soft, Non-tender Neuro Exam: Alert Extremities: No Edema Labs Laboratory Tests Test 08/23/16 05:00 08/24/16 05:45 White Blood Count 6.2x10^3/uL (4.0-11.0) 6.0x10^3/uL (4.0-11.0) Red Blood Count 4.19x10^6/uL (3.50-5.40) 4.03x10^6/uL (3.50-5.40) Hemoglobin 13.4g/dL (12.0-15.5) 12.8g/dL (12.0-15.5) Hematocrit 40.8% (36.0-47.0) 39.9% (36.0-47.0) Mean Corpuscular Volume 98fL (79-100) 99fL (79-100) Mean Corpuscular Hemoglobin 32pg (25-35) 32pg (25-35) Mean Corpuscular Hemoglobin Concent 33g/dL (31-37) 32g/dL (31-37) Red Cell Distribution Width 13.2% (11.5-14.5) 13.5% (11.5-14.5) Platelet Count 154x10^3/uL (140-400) 150x10^3/uL (140-400) Neutrophils (%) (Auto) 72% (31-73) 76% (31-73) Lymphocytes (%) (Auto) 18% (24-48) 14% (24-48) Monocytes (%) (Auto) 9% (0-9) 8% (0-9) Eosinophils (%) (Auto) 2% (0-3) 2% (0-3) Basophils (%) (Auto) 0% (0-3) 1% (0-3) Neutrophils # (Auto) 4.4x10^3uL (1.8-7.7) 4.6x10^3uL (1.8-7.7) Lymphocytes # (Auto) 1.1x10^3/uL (1.0-4.8) 0.8x10^3/uL (1.0-4.8) Monocytes # (Auto) 0.5x10^3/uL (0.0-1.1) 0.4x10^3/uL (0.0-1.1) Eosinophils # (Auto) 0.1x10^3/uL (0.0-0.7) 0.1x10^3/uL (0.0-0.7) Basophils # (Auto) 0.0x10^3/uL (0.0-0.2) 0.0x10^3/uL (0.0-0.2) Sodium Level 145mmol/L (136-145) 146mmol/L (136-145) Potassium Level 3.5mmol/L (3.5-5.1) 3.4mmol/L (3.5-5.1) Chloride Level 104mmol/L (98-107) 104mmol/L (98-107) Carbon Dioxide Level 37mmol/L (21-32) 39mmol/L (21-32) Anion Gap 4 (6-14) 3 (6-14) Blood Urea Nitrogen 8mg/dL (7-20) 8mg/dL (7-20) Creatinine 0.4mg/dL (0.6-1.0) 0.4mg/dL (0.6-1.0) Estimated GFR (Cockcroft-Gault) 154.0 154.0 Glucose Level 82mg/dL (70-99) 118mg/dL (70-99) Calcium Level 8.6mg/dL (8.5-10.1) 8.7mg/dL (8.5-10.1) Laboratory Tests Test 08/24/16 05:45 White Blood Count 6.0x10^3/uL (4.0-11.0) Red Blood Count 4.03x10^6/uL (3.50-5.40) Hemoglobin 12.8g/dL (12.0-15.5) Hematocrit 39.9% (36.0-47.0) Mean Corpuscular Volume 99fL (79-100) Mean Corpuscular Hemoglobin 32pg (25-35) Mean Corpuscular Hemoglobin Concent 32g/dL (31-37) Red Cell Distribution Width 13.5% (11.5-14.5) Platelet Count 150x10^3/uL (140-400) Neutrophils (%) (Auto) 76% (31-73) Lymphocytes (%) (Auto) 14% (24-48) Monocytes (%) (Auto) 8% (0-9) Eosinophils (%) (Auto) 2% (0-3) Basophils (%) (Auto) 1% (0-3) Neutrophils # (Auto) 4.6x10^3uL (1.8-7.7) Lymphocytes # (Auto) 0.8x10^3/uL (1.0-4.8) Monocytes # (Auto) 0.4x10^3/uL (0.0-1.1) Eosinophils # (Auto) 0.1x10^3/uL (0.0-0.7) Basophils # (Auto) 0.0x10^3/uL (0.0-0.2) Sodium Level 146mmol/L (136-145) Potassium Level 3.4mmol/L (3.5-5.1) Chloride Level 104mmol/L (98-107) Carbon Dioxide Level 39mmol/L (21-32) Anion Gap 3 (6-14) Blood Urea Nitrogen 8mg/dL (7-20) Creatinine 0.4mg/dL (0.6-1.0) Estimated GFR (Cockcroft-Gault) 154.0 Glucose Level 118mg/dL (70-99) Calcium Level 8.7mg/dL (8.5-10.1) Medications Active Scripts Medications Dose Route/Sig Days Date Category Dose Instructions Vitamin B-6 (Pyridoxine Hcl) 50 Mg Tablet 50 Mg PO 08/19/16 Reported Ranitidine Hcl 300 Mg Capsule 1 Cap PO DAILY 08/19/16 Reported Alendronate Sodium 70 Mg Tablet 1 Tab PO WEEKLY 08/19/16 Reported Tramadol Hcl 50 Mg Tablet 1 Tab PO PRN Q6HRS PRN 08/05/16 Rx Prednisone 10 Mg Tablet 10 Mg PO UD 08/04/16 Rx Take 3 tablets by mouth daily for 3 days, then take 2 tablets by mouth daily for 3 days, then take 1 tablet by mouth daily for 3 days, then stop. Levaquin (Levofloxacin) 250 Mg Tablet 250 Mg PO DAILY06 08/04/16 Rx Amox Tr-K Clv 500-125 Mg Tab (Amoxicillin/Potassium Clav) 1 Each Tablet 1 Tab PO BID 07/11/16 Rx Kaopectate (Bismuth Subsalicylate) 262 Mg/15 Ml Oral.susp 30 Ml PO PRN Q8HRS PRN 07/06/16 Reported Mag-Al Plus Xs Suspension (Mag Hydrox/Al Hydrox/Simeth) 30 Ml Oral.susp 30 Ml PO PRN Q4HRS PRN 07/06/16 Reported Albuterol Sulfate Neb Soln (Albuterol Sulfate) 2.5 Mg/3 Ml Vial.neb 2.5 Mg NEB PRN Q6HRS PRN 07/06/16 Reported Vitamin D3 (Cholecalciferol (Vitamin D3)) 1,000 Unit Tablet 1,000 Unit PO BID 07/06/16 Reported Dulcolax (Bisacodyl) 10 Mg Supp.rect 10 Mg RC PRN DAILY PRN 07/06/16 Reported Fleet Enema (Na Phos,M-B/Na Phos,Di-Ba) 133 Ml Enema 1 Each RC PRN PRN 07/06/16 Reported Tylenol (Acetaminophen) 325 Mg Tablet 2 Tab PO PRN Q6HRS PRN 07/06/16 Reported Zolpidem Tartrate 5 Mg Tablet 1 Tab PO PRN QHS PRN 06/29/16 Reported Spiriva (Tiotropium Benedict) 18 Mcg Cap.w.dev 1 Cap IH DAILY 03/03/16 Reported Symbicort 160-4.5 Mcg Inhaler (Budesonide/Formoterol Fumarate) 10.2 Gm Hfa.aer.ad 2 Puff IH BID 03/03/16 Reported Proair Hfa Inhaler (Albuterol Sulfate) 8.5 Gm Hfa.aer.ad 2 Puff INH PRN Q6HRS PRN 03/03/16 Reported Metoprolol Tartrate 50 Mg Tablet 1 Tab PO BID 03/03/16 Reported Clopidogrel (Clopidogrel Bisulfate) 75 Mg Tablet 1 Tab PO DAILY 03/03/16 Reported Lasix (Furosemide) 20 Mg Tablet 1 Tab PO DAILY 03/03/16 Reported Impression . 1. Acute on chronic hypercapnic respiratory failure secondary to acute exacerbation of chronic obstructive pulmonary disease. 2. 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 3. Underlying severe chronic obstructive pulmonary disease, which is oxygen dependent. 4. No definite pneumonia seen on the chest x-ray. Plan . 1. Clinically improved with BIPAP/ now on nasal canula only 2. Repeat ABGs much improved. 3. Continue with present bronchodilators. 4. Avoid any narcotics. 5. speech f/u, on dysphagia diet 6. Discussed with RN 7. Back to skill Thursday 8. SS as OP to qualify for home CPAP CHEYANNE SUTHERLAND MD Aug 24, 2016 09:47
[2016-08-24 10:15] VITALS: BP 104/45
[2016-08-24] MEDS: IV NORMAL SALINE 1000ML BAG 1,000 ML IV SCH (13:13)
--- NOTE | 2016-08-24 13:37 | PDOC ---
PROGRESS NOTES Chief Complaint Chief Complaint 1. AMS due to hypercapnic respiratory failure improved. 2. 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 Hypertension. 4. Chronic diastolic heart failure. 5. Chronic obstructive pulmonary disease. 6. Mild elevation of troponin. 7. Hypercapnic respiratory failure 8. Dysphagia. History of Present Illness History of Present Illness Patient awake, alert, and oriented laying down in bed seen and examined this AM. Pt states that she is doing "ok" Pt denies any current CP or SOA. Pt also denies any current N/V/D. No fevers for chills. Pt in NAD. VSS- All questions and concerns addressed and answered. Vitals Vitals Vital Signs Date Time Temp Pulse Resp B/P Pulse Ox O2 Delivery O2 Flow Rate FiO2 08/24/16 11:26 80 Nasal Cannula 5.0 08/24/16 10:15 98.2 79 22 104/45 98.2 Physical Exam General: Alert, Oriented X3, Cooperative, No acute distress Heart: Regular rate, Normal S1, Normal S2, No murmurs, Other (tele: SR) Lungs: Other (decrease bs) Abdomen: Normal bowel sounds, Soft Extremities: Other Skin: No rashes, Other Labs LABS Laboratory Tests Test 08/24/16 05:45 White Blood Count 6.0x10^3/uL (4.0-11.0) Red Blood Count 4.03x10^6/uL (3.50-5.40) Hemoglobin 12.8g/dL (12.0-15.5) Hematocrit 39.9% (36.0-47.0) Mean Corpuscular Volume 99fL (79-100) Mean Corpuscular Hemoglobin 32pg (25-35) Mean Corpuscular Hemoglobin Concent 32g/dL (31-37) Red Cell Distribution Width 13.5% (11.5-14.5) Platelet Count 150x10^3/uL (140-400) Neutrophils (%) (Auto) 76% (31-73) Lymphocytes (%) (Auto) 14% (24-48) Monocytes (%) (Auto) 8% (0-9) Eosinophils (%) (Auto) 2% (0-3) Basophils (%) (Auto) 1% (0-3) Neutrophils # (Auto) 4.6x10^3uL (1.8-7.7) Lymphocytes # (Auto) 0.8x10^3/uL (1.0-4.8) Monocytes # (Auto) 0.4x10^3/uL (0.0-1.1) Eosinophils # (Auto) 0.1x10^3/uL (0.0-0.7) Basophils # (Auto) 0.0x10^3/uL (0.0-0.2) Sodium Level 146mmol/L (136-145) Potassium Level 3.4mmol/L (3.5-5.1) Chloride Level 104mmol/L (98-107) Carbon Dioxide Level 39mmol/L (21-32) Anion Gap 3 (6-14) Blood Urea Nitrogen 8mg/dL (7-20) Creatinine 0.4mg/dL (0.6-1.0) Estimated GFR (Cockcroft-Gault) 154.0 Glucose Level 118mg/dL (70-99) Calcium Level 8.7mg/dL (8.5-10.1) Review of Systems Review of Systems Complaint of fatigue Complaint of hunger Assessment and Plan Assessmemt and Plan Problems Medical Problems: (1) Altered mental status Status: Acute (2) Dysphasia Status: Acute (3) Elevated troponin Status: Acute Assessment: 1. AMS due to hypercapnic respiratory failure improved. 2. 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 Hypertension. 4. Chronic diastolic heart failure. 5. Chronic obstructive pulmonary disease. 6. Mild elevation of troponin. 7. Hypercapnic respiratory failure 8. Dysphagia. Plan: Continue to monitor the patient per floor protocol Daily labs- CBC, BMP, BUN and Cr Daily PTOT Discuss plan and care with floor nurse Discussed with Reparatory therapist Pulmonary, Cards, and Neuro following- Appreciate recommendations and input Continue breathing treatments Possible DC tomorrow morning if ok with subspecialists Problems: Comment Review of Relevant I have reviewed the following items ana laura (where applicable) has been applied. Labs Laboratory Tests Test 08/23/16 05:00 08/24/16 05:45 White Blood Count 6.2x10^3/uL (4.0-11.0) 6.0x10^3/uL (4.0-11.0) Red Blood Count 4.19x10^6/uL (3.50-5.40) 4.03x10^6/uL (3.50-5.40) Hemoglobin 13.4g/dL (12.0-15.5) 12.8g/dL (12.0-15.5) Hematocrit 40.8% (36.0-47.0) 39.9% (36.0-47.0) Mean Corpuscular Volume 98fL (79-100) 99fL (79-100) Mean Corpuscular Hemoglobin 32pg (25-35) 32pg (25-35) Mean Corpuscular Hemoglobin Concent 33g/dL (31-37) 32g/dL (31-37) Red Cell Distribution Width 13.2% (11.5-14.5) 13.5% (11.5-14.5) Platelet Count 154x10^3/uL (140-400) 150x10^3/uL (140-400) Neutrophils (%) (Auto) 72% (31-73) 76% (31-73) Lymphocytes (%) (Auto) 18% (24-48) 14% (24-48) Monocytes (%) (Auto) 9% (0-9) 8% (0-9) Eosinophils (%) (Auto) 2% (0-3) 2% (0-3) Basophils (%) (Auto) 0% (0-3) 1% (0-3) Neutrophils # (Auto) 4.4x10^3uL (1.8-7.7) 4.6x10^3uL (1.8-7.7) Lymphocytes # (Auto) 1.1x10^3/uL (1.0-4.8) 0.8x10^3/uL (1.0-4.8) Monocytes # (Auto) 0.5x10^3/uL (0.0-1.1) 0.4x10^3/uL (0.0-1.1) Eosinophils # (Auto) 0.1x10^3/uL (0.0-0.7) 0.1x10^3/uL (0.0-0.7) Basophils # (Auto) 0.0x10^3/uL (0.0-0.2) 0.0x10^3/uL (0.0-0.2) Sodium Level 145mmol/L (136-145) 146mmol/L (136-145) Potassium Level 3.5mmol/L (3.5-5.1) 3.4mmol/L (3.5-5.1) Chloride Level 104mmol/L (98-107) 104mmol/L (98-107) Carbon Dioxide Level 37mmol/L (21-32) 39mmol/L (21-32) Anion Gap 4 (6-14) 3 (6-14) Blood Urea Nitrogen 8mg/dL (7-20) 8mg/dL (7-20) Creatinine 0.4mg/dL (0.6-1.0) 0.4mg/dL (0.6-1.0) Estimated GFR (Cockcroft-Gault) 154.0 154.0 Glucose Level 82mg/dL (70-99) 118mg/dL (70-99) Calcium Level 8.6mg/dL (8.5-10.1) 8.7mg/dL (8.5-10.1) Laboratory Tests Test 08/24/16 05:45 White Blood Count 6.0x10^3/uL (4.0-11.0) Red Blood Count 4.03x10^6/uL (3.50-5.40) Hemoglobin 12.8g/dL (12.0-15.5) Hematocrit 39.9% (36.0-47.0) Mean Corpuscular Volume 99fL (79-100) Mean Corpuscular Hemoglobin 32pg (25-35) Mean Corpuscular Hemoglobin Concent 32g/dL (31-37) Red Cell Distribution Width 13.5% (11.5-14.5) Platelet Count 150x10^3/uL (140-400) Neutrophils (%) (Auto) 76% (31-73) Lymphocytes (%) (Auto) 14% (24-48) Monocytes (%) (Auto) 8% (0-9) Eosinophils (%) (Auto) 2% (0-3) Basophils (%) (Auto) 1% (0-3) Neutrophils # (Auto) 4.6x10^3uL (1.8-7.7) Lymphocytes # (Auto) 0.8x10^3/uL (1.0-4.8) Monocytes # (Auto) 0.4x10^3/uL (0.0-1.1) Eosinophils # (Auto) 0.1x10^3/uL (0.0-0.7) Basophils # (Auto) 0.0x10^3/uL (0.0-0.2) Sodium Level 146mmol/L (136-145) Potassium Level 3.4mmol/L (3.5-5.1) Chloride Level 104mmol/L (98-107) Carbon Dioxide Level 39mmol/L (21-32) Anion Gap 3 (6-14) Blood Urea Nitrogen 8mg/dL (7-20) Creatinine 0.4mg/dL (0.6-1.0) Estimated GFR (Cockcroft-Gault) 154.0 Glucose Level 118mg/dL (70-99) Calcium Level 8.7mg/dL (8.5-10.1) Medications Current Medications Ondansetron HCl (Zofran) 4 mg PRN Q8HRS PRN IV NAUSEA/VOMITING; Start 08/19/16 at 14:00; Stop 08/20/16 at 13:59; Status DC Acetaminophen (Tylenol) 650 mg PRN Q4HRS PRN PO FEVER; Start 08/19/16 at 14:00 ; Stop 08/20/16 at 13:59; Status DC Acetaminophen (Tylenol) 325 mg PRN Q6HRS PRN PO MILD PAIN / TEMP Last administered on 08/21/16t 04:14; Start 08/19/16 at 18:15 Acetaminophen/ Hydrocodone Bitart (Lortab 5/325) 1 tab PRN Q6HRS PRN PO MODERATE TO SEVERE PAIN; Start 08/19/16 at 18:15 Hydralazine HCl (Apresoline) 10 mg PRN Q4HRS PRN IVP ELEVATED BP, SEE COMMENTS ; Start 08/19/16 at 18:15 Ondansetron HCl (Zofran) 4 mg PRN Q8HRS PRN IV NAUSEA/VOMITING; Start 08/19/16 at 18:15 Albuterol Sulfate 2.5 mg 2.5 mg PRN Q4HRS PRN NEB SHORTNESS OF BREATH Last administered on 08/19/16 19:23; Start 08/19/16 at 18:15; Stop 08/20/16 at 22:07 ; Status DC Sodium Chloride (Iv Sodium Chloride 0.9% 1000ml Bag) 1,000 ml @ 75 mls/hr [id number] IV Last administered on 08/24/16 13:13; Start 08/19/16 at 18:15 Vitamin D (Vitamin D3) 1,000 unit BID PO Last administered on 08/24/16 09:12; Start 08/20/16 at 09:00 Metoprolol Tartrate (Lopressor) 50 mg BID PO Last administered on 08/20/16 20: 50; Start 08/20/16 at 09:00; Stop 08/21/16 at 15:29; Status DC Albuterol Sulfate (Ventolin Neb Soln) 2.5 mg PRN Q6HRS PRN NEB SHORTNESS OF BREATH; Start 08/20/16 at 22:00 Clopidogrel Bisulfate (Plavix) 75 mg DAILY PO Last administered on 08/24/16 09 :12; Start 08/21/16 at 09:00 Furosemide (Lasix) 20 mg DAILY PO Last administered on 08/21/16 11:45; Start 08/21/16 at 09:00; Stop 08/22/16 at 09:55; Status DC Prednisone (Prednisone) 10 mg DAILY PO ; Start 08/21/16 at 09:00; Stop 08/22/16 at 11:16; Status DC Pyridoxine HCl (Vitamin B-6) 50 mg DAILY PO Last administered on 08/24/16 09: 12; Start 08/21/16 at 09:00 Non-Formulary Medication 2 puff PRN Q6HRS PRN INH SHORTNESS OF BREATH; Start at 22:00; Status UNV Non-Formulary Medication 2 puff BID IH ; Start 08/21/16 at 09:00; Status UNV Non-Formulary Medication 1 cap DAILY IH ; Start 08/21/16 at 09:00; Status UNV Budesonide (Pulmicort) 0.5 mg RTBID NEB Last administered on 08/24/16 07:12; Start 08/21/16 at 08:00 Albuterol/ Ipratropium (Duoneb) 3 ml RTQID NEB Last administered on 08/24/16 11:26; Start 08/21/16 at 08:00 Metoprolol Tartrate (Lopressor) 2.5 mg Q6HRS IVP Last administered on 11:27; Start 08/21/16 at 18:00; Stop 08/22/16 at 16:24; Status DC Furosemide (Lasix) 20 mg 1X ONCE IVP Last administered on 08/21/16 16:19; Start 08/21/16 at 15:30; Stop 08/21/16 at 15:31; Status DC Furosemide (Lasix) 10 mg DAILY IVP Last administered on 08/23/16 08:46; Start 08/22/16 at 10:00 Barium Sulfate (Varibar Thin Liquid) 148 gm 1X ONCE PO Last administered on 14:35; Start 08/22/16 at 13:15; Stop 08/22/16 at 13:16; Status DC Metoprolol Tartrate (Lopressor) 5 mg Q6HRS IVP ; Start 08/22/16 at 18:00; Stop 08/22/16 at 18:00; Status DC Diltiazem HCl (Cardizem) 30 mg Q6HRS PO Last administered on 08/23/16 06:17; Start 08/22/16 at 18:00; Stop 08/23/16 at 10:15; Status DC Temazepam (Restoril) 15 mg PRN QHS PRN PO INSOMNIA Last administered on 20:24; Start 08/22/16 at 22:45 Diltiazem HCl (Cardizem) 60 mg Q6HRS PO Last administered on 08/24/16 07:21; Start 08/23/16 at 12:00 Active Scripts Active Tramadol Hcl 50 Mg Tablet 1 Tab PO PRN Q6HRS PRN Prednisone 10 Mg Tablet 10 Mg PO UD Take 3 tablets by mouth daily for 3 days, then take 2 tablets by mouth daily for 3 days, then take 1 tablet by mouth daily for 3 days, then stop. Levaquin (Levofloxacin) 250 Mg Tablet 250 Mg PO DAILY06 Amox Tr-K Clv 500-125 Mg Tab (Amoxicillin/Potassium Clav) 1 Each Tablet 1 Tab PO BID Reported Vitamin B-6 (Pyridoxine Hcl) 50 Mg Tablet 50 Mg PO Ranitidine Hcl 300 Mg Capsule 1 Cap PO DAILY Alendronate Sodium 70 Mg Tablet 1 Tab PO WEEKLY Kaopectate (Bismuth Subsalicylate) 262 Mg/15 Ml Oral.susp 30 Ml PO PRN Q8HRS PRN Mag-Al Plus Xs Suspension (Mag Hydrox/Al Hydrox/Simeth) 30 Ml Oral.susp 30 Ml PO PRN Q4HRS PRN Albuterol Sulfate Neb Soln (Albuterol Sulfate) 2.5 Mg/3 Ml Vial.neb 2.5 Mg NEB PRN Q6HRS PRN Vitamin D3 (Cholecalciferol (Vitamin D3)) 1,000 Unit Tablet 1,000 Unit PO BID Dulcolax (Bisacodyl) 10 Mg Supp.rect 10 Mg RC PRN DAILY PRN Fleet Enema (Na Phos,M-B/Na Phos,Di-Ba) 133 Ml Enema 1 Each RC PRN PRN Tylenol (Acetaminophen) 325 Mg Tablet 2 Tab PO PRN Q6HRS PRN Zolpidem Tartrate 5 Mg Tablet 1 Tab PO PRN QHS PRN Spiriva (Tiotropium [place]) 18 Mcg Cap.w.dev 1 Cap IH DAILY Symbicort 160-4.5 Mcg Inhaler (Budesonide/Formoterol Fumarate) 10.2 Gm Hfa.aer.ad 2 Puff IH BID Proair Hfa Inhaler (Albuterol Sulfate) 8.5 Gm Hfa.aer.ad 2 Puff INH PRN Q6HRS PRN Metoprolol Tartrate 50 Mg Tablet 1 Tab PO BID Clopidogrel (Clopidogrel Bisulfate) 75 Mg Tablet 1 Tab PO DAILY Lasix (Furosemide) 20 Mg Tablet 1 Tab PO DAILY Vitals/I & O Vital Sign - Last 24 Hours 08/23/16 08/23/16 08/23/16 08/23/16 14:58 15:13 17:54 18:14 Temp 98.1 98.1 Pulse 111 111 Resp 22 B/P 124/84 124/84 Pulse Ox 95 O2 Delivery Nasal Cannula Nasal Cannula Nasal Cannula O2 Flow Rate 5.0 5.0 08/23/16 08/23/16 08/23/16 08/24/16 19:45 20:00 23:40 02:24 Temp 98.2 98.1 98.2 98.1 Pulse 94 92 88 Resp 32 26 B/P 125/56 109/54 Pulse Ox 96 99 O2 Delivery Nasal Cannula Nasal Cannula Nasal Cannula O2 Flow Rate 5.0 5.0 5.0 08/24/16 08/24/16 08/24/16 08/24/16 03:05 07:04 07:12 07:21 Temp 97.4 97.6 97.4 97.6 Pulse 84 88 88 Resp B/P 116/52 140/59 140/59 Pulse Ox 93 94 96 O2 Delivery Nasal Cannula Nasal Cannula Nasal Cannula O2 Flow Rate 5.0 5.0 5.0 08/24/16 08/24/16 08/24/16 08/24/16 08:00 08:00 10:15 11:26 Temp 98.2 98.2 Pulse 79 Resp 22 B/P 104/45 Pulse Ox 94 80 O2 Delivery Nasal Cannula Nasal Cannula Nasal Cannula O2 Flow Rate 5.0 5.0 5.0 5.0 Intake and Output 08/23/16 08/23/16 08/24/16 15:00 23:00 07:00 Intake Total 120 ml 600 ml 50 ml Output Total 0 ml Balance 120 ml 600 ml 50 ml ROGELIO OSMAN III DO Aug 24, 2016 13:37
[2016-08-24] MEDS: ACETAMINOPHEN 325 MG TABLET. PO PRN (14:31)
[2016-08-24 14:41] VITALS: BP 126/61
[2016-08-24 19:35] VITALS: BP 96/45
[2016-08-24] MEDS: TEMAZEPAM 15 MG CAPSULE PO PRN (21:08)
[2016-08-24 23:34] VITALS: BP 105/48
[2016-08-25 03:31] VITALS: BP 113/64
[2016-08-25 05:42] LABS: BASO % 0 % (0-3); EOS % 3 % (0-3); HEMATOCRIT 38.4 % (36.0-47.0); HEMOGLOBIN 12.3 g/dL (12.0-15.5); LYMPH # 0.8 x10^3/uL (1.0-4.8); LYMPH % 15 % (24-48); MEAN CORPUSCULAR HEMOGLOBIN 32 pg (25-35); MEAN CORPUSCULAR HGB CONC 32 g/dL (31-37); MEAN CORPUSCULAR VOLUME 100 fL (79-100); MONO % 8 % (0-9); NEUT % 74 % (31-73); PLATELET COUNT 136 x10^3/uL (140-400); RED BLOOD COUNT 3.85 x10^6/uL (3.50-5.40); RED CELL DISTRIBUTION WIDTH 13.4 % (11.5-14.5); WHITE BLOOD COUNT 5.4 x10^3/uL (4.0-11.0)
[2016-08-25 06:00] LABS: CALCIUM 8.5 mg/dL (8.5-10.1); CREATININE 0.4 mg/dL (0.6-1.0); POTASSIUM 3.4 mmol/L (3.5-5.1)
[2016-08-25] MEDS: DILTIAZEM HCL 30 MG TABLET PO SCH ×3 (06:15→11:55)
[2016-08-25 06:24] VITALS: BP 120/67
[2016-08-25] MEDS: IV NORMAL SALINE 1000ML BAG 1,000 ML IV SCH ×2 (07:35→08:44)
[2016-08-25] MEDS: BUDESONIDE 0.5 MG/2 ML NEBU NEB SCH (07:46)
[2016-08-25] MEDS: IPRATRPIUM/ALBUTEROL 0.5/2.5MG 3 ML NEBU. NEB SCH ×2 (07:46→11:43)
[2016-08-25] MEDS: CLOPIDOGREL BISULFATE 75 MG TABLET PO SCH (08:43)
[2016-08-25] MEDS: PYRIDOXINE 50 MG TABLET. PO SCH (08:43)
[2016-08-25] MEDS: CHOLECALCIFEROL (VITAMIN D3) 1,000 UNIT TABLET PO SCH (08:43)
[2016-08-25] MEDS: FUROSEMIDE 20 MG/2 ML VIAL IVP SCH (09:00)
--- NOTE | 2016-08-25 09:59 | PDOC ---
PROGRESS NOTES Assessment Problems Medical Problems: (1) Altered mental status Status: Acute (2) Dysphasia Status: Acute (3) Elevated troponin Status: Acute Small left cerebellar infarct, basically an incidental finding. Workup negative Metabolic encephalopathy mainly due to hypercarbic respiratory failure, better Prior dementia Prior B-12 deficiency, discussed with daughter, patient has been getting B12 shots History of left parietal stroke Dysphagia, better Plan Treat medical diseases Continue clopidogrel Lipid profile favorable, risks exceed benefits of statin Subjective no complaints Objective Vital Signs Date Time Temp Pulse Resp B/P Pulse Ox O2 Delivery O2 Flow Rate FiO2 08/25/16 08:00 5.0 08/25/16 08:00 Nasal Cannula 08/25/16 07:50 94 08/25/16 06:24 98.2 90 24 120/67 98.2 Intake and Output 08/25/16 07:00 Intake Total 1290 ml Balance 1290 ml Intake Oral 1290 ml # Voids 5 PHYSICAL EXAM Alert. Oriented to place and person. PERRL. EOMI. CN: no focal findings. Muscle tone: normal. Muscle strength: 4/5 DTR: 1+ Plantar reflex: flexor Gait: not examined in bed. Sensory exam: no abnormal findings. No cerebellar signs elicited. Review of Relevant I have reviewed the following items ana laura (where applicable) has been applied. Labs Laboratory Tests Test 08/24/16 05:45 08/25/16 04:40 08/25/16 04:45 White Blood Count 6.0x10^3/uL (4.0-11.0) 5.4x10^3/uL (4.0-11.0) Red Blood Count 4.03x10^6/uL (3.50-5.40) 3.85x10^6/uL (3.50-5.40) Hemoglobin 12.8g/dL (12.0-15.5) 12.3g/dL (12.0-15.5) Hematocrit 39.9% (36.0-47.0) 38.4% (36.0-47.0) Mean Corpuscular Volume 99fL (79-100) 100fL (79-100) Mean Corpuscular Hemoglobin 32pg (25-35) 32pg (25-35) Mean Corpuscular Hemoglobin Concent 32g/dL (31-37) 32g/dL (31-37) Red Cell Distribution Width 13.5% (11.5-14.5) 13.4% (11.5-14.5) Platelet Count 150x10^3/uL (140-400) 136x10^3/uL (140-400) Neutrophils (%) (Auto) 76% (31-73) 74% (31-73) Lymphocytes (%) (Auto) 14% (24-48) 15% (24-48) Monocytes (%) (Auto) 8% (0-9) 8% (0-9) Eosinophils (%) (Auto) 2% (0-3) 3% (0-3) Basophils (%) (Auto) 1% (0-3) 0% (0-3) Neutrophils # (Auto) 4.6x10^3uL (1.8-7.7) 4.0x10^3uL (1.8-7.7) Lymphocytes # (Auto) 0.8x10^3/uL (1.0-4.8) 0.8x10^3/uL (1.0-4.8) Monocytes # (Auto) 0.4x10^3/uL (0.0-1.1) 0.4x10^3/uL (0.0-1.1) Eosinophils # (Auto) 0.1x10^3/uL (0.0-0.7) 0.2x10^3/uL (0.0-0.7) Basophils # (Auto) 0.0x10^3/uL (0.0-0.2) 0.0x10^3/uL (0.0-0.2) Sodium Level 146mmol/L (136-145) 146mmol/L (136-145) Potassium Level 3.4mmol/L (3.5-5.1) 3.4mmol/L (3.5-5.1) Chloride Level 104mmol/L (98-107) 106mmol/L (98-107) Carbon Dioxide Level 39mmol/L (21-32) 38mmol/L (21-32) Anion Gap 3 (6-14) 2 (6-14) Blood Urea Nitrogen 8mg/dL (7-20) 6mg/dL (7-20) Creatinine 0.4mg/dL (0.6-1.0) 0.4mg/dL (0.6-1.0) Estimated GFR (Cockcroft-Gault) 154.0 154.0 Glucose Level 118mg/dL (70-99) 105mg/dL (70-99) Calcium Level 8.7mg/dL (8.5-10.1) 8.5mg/dL (8.5-10.1) Laboratory Tests Test 08/25/16 04:40 08/25/16 04:45 Sodium Level 146mmol/L (136-145) Potassium Level 3.4mmol/L (3.5-5.1) Chloride Level 106mmol/L (98-107) Carbon Dioxide Level 38mmol/L (21-32) Anion Gap 2 (6-14) Blood Urea Nitrogen 6mg/dL (7-20) Creatinine 0.4mg/dL (0.6-1.0) Estimated GFR (Cockcroft-Gault) 154.0 Glucose Level 105mg/dL (70-99) Calcium Level 8.5mg/dL (8.5-10.1) White Blood Count 5.4x10^3/uL (4.0-11.0) Red Blood Count 3.85x10^6/uL (3.50-5.40) Hemoglobin 12.3g/dL (12.0-15.5) Hematocrit 38.4% (36.0-47.0) Mean Corpuscular Volume 100fL (79-100) Mean Corpuscular Hemoglobin 32pg (25-35) Mean Corpuscular Hemoglobin Concent 32g/dL (31-37) Red Cell Distribution Width 13.4% (11.5-14.5) Platelet Count 136x10^3/uL (140-400) Neutrophils (%) (Auto) 74% (31-73) Lymphocytes (%) (Auto) 15% (24-48) Monocytes (%) (Auto) 8% (0-9) Eosinophils (%) (Auto) 3% (0-3) Basophils (%) (Auto) 0% (0-3) Neutrophils # (Auto) 4.0x10^3uL (1.8-7.7) Lymphocytes # (Auto) 0.8x10^3/uL (1.0-4.8) Monocytes # (Auto) 0.4x10^3/uL (0.0-1.1) Eosinophils # (Auto) 0.2x10^3/uL (0.0-0.7) Basophils # (Auto) 0.0x10^3/uL (0.0-0.2) Medications Current Medications Ondansetron HCl (Zofran) 4 mg PRN Q8HRS PRN IV NAUSEA/VOMITING; Start 08/19/16 at 14:00; Stop 08/20/16 at 13:59; Status DC Acetaminophen (Tylenol) 650 mg PRN Q4HRS PRN PO FEVER; Start 08/19/16 at 14:00 ; Stop 08/20/16 at 13:59; Status DC Acetaminophen (Tylenol) 325 mg PRN Q6HRS PRN PO MILD PAIN / TEMP Last administered on 08/24/16 14:31; Start 08/19/16 at 18:15 Acetaminophen/ Hydrocodone Bitart (Lortab 5/325) 1 tab PRN Q6HRS PRN PO MODERATE TO SEVERE PAIN; Start 08/19/16 at 18:15 Hydralazine HCl (Apresoline) 10 mg PRN Q4HRS PRN IVP ELEVATED BP, SEE COMMENTS ; Start 08/19/16 at 18:15 Ondansetron HCl (Zofran) 4 mg PRN Q8HRS PRN IV NAUSEA/VOMITING; Start 08/19/16 at 18:15 Albuterol Sulfate 2.5 mg 2.5 mg PRN Q4HRS PRN NEB SHORTNESS OF BREATH Last administered on 08/19/16 19:23; Start 08/19/16 at 18:15; Stop 08/20/16 at 22:07 ; Status DC Sodium Chloride (Iv Sodium Chloride 0.9% 1000ml Bag) 1,000 ml @ 75 mls/hr [id number] IV Last administered on 08/24/16 13:13; Start 08/19/16 at 18:15 Vitamin D (Vitamin D3) 1,000 unit BID PO Last administered on 08/25/16 08:43; Start 08/20/16 at 09:00 Metoprolol Tartrate (Lopressor) 50 mg BID PO Last administered on 08/20/16 20: 50; Start 08/20/16 at 09:00; Stop 08/21/16 at 15:29; Status DC Albuterol Sulfate (Ventolin Neb Soln) 2.5 mg PRN Q6HRS PRN NEB SHORTNESS OF BREATH; Start 08/20/16 at 22:00 Clopidogrel Bisulfate (Plavix) 75 mg DAILY PO Last administered on 08/25/16 08 :43; Start 08/21/16 at 09:00 Furosemide (Lasix) 20 mg DAILY PO Last administered on 08/21/16 11:45; Start 08/21/16 at 09:00; Stop 08/22/16 at 09:55; Status DC Prednisone (Prednisone) 10 mg DAILY PO ; Start 08/21/16 at 09:00; Stop 08/22/16 at 11:16; Status DC Pyridoxine HCl (Vitamin B-6) 50 mg DAILY PO Last administered on 08/25/16 08: 43; Start 08/21/16 at 09:00 Non-Formulary Medication 2 puff PRN Q6HRS PRN INH SHORTNESS OF BREATH; Start at 22:00; Status UNV Non-Formulary Medication 2 puff BID IH ; Start 08/21/16 at 09:00; Status UNV Non-Formulary Medication 1 cap DAILY IH ; Start 08/21/16 at 09:00; Status UNV Budesonide (Pulmicort) 0.5 mg RTBID NEB Last administered on 08/25/16 07:46; Start 08/21/16 at 08:00 Albuterol/ Ipratropium (Duoneb) 3 ml RTQID NEB Last administered on 08/25/16 07:46; Start 08/21/16 at 08:00 Metoprolol Tartrate (Lopressor) 2.5 mg Q6HRS IVP Last administered on 11:27; Start 08/21/16 at 18:00; Stop 08/22/16 at 16:24; Status DC Furosemide (Lasix) 20 mg 1X ONCE IVP Last administered on 08/21/16 16:19; Start 08/21/16 at 15:30; Stop 08/21/16 at 15:31; Status DC Furosemide (Lasix) 10 mg DAILY IVP Last administered on 08/23/16 08:46; Start 08/22/16 at 10:00 Barium Sulfate (Varibar Thin Liquid) 148 gm 1X ONCE PO Last administered on 14:35; Start 08/22/16 at 13:15; Stop 08/22/16 at 13:16; Status DC Metoprolol Tartrate (Lopressor) 5 mg Q6HRS IVP ; Start 08/22/16 at 18:00; Stop 08/22/16 at 18:00; Status DC Diltiazem HCl (Cardizem) 30 mg Q6HRS PO Last administered on 08/23/16 06:17; Start 08/22/16 at 18:00; Stop 08/23/16 at 10:15; Status DC Temazepam (Restoril) 15 mg PRN QHS PRN PO INSOMNIA Last administered on 21:08; Start 08/22/16 at 22:45 Diltiazem HCl (Cardizem) 60 mg Q6HRS PO Last administered on 08/25/16 06:15; Start 08/23/16 at 12:00 Active Scripts Active Tramadol Hcl 50 Mg Tablet 1 Tab PO PRN Q6HRS PRN Prednisone 10 Mg Tablet 10 Mg PO UD Take 3 tablets by mouth daily for 3 days, then take 2 tablets by mouth daily for 3 days, then take 1 tablet by mouth daily for 3 days, then stop. Levaquin (Levofloxacin) 250 Mg Tablet 250 Mg PO DAILY06 Amox Tr-K Clv 500-125 Mg Tab (Amoxicillin/Potassium Clav) 1 Each Tablet 1 Tab PO BID Reported Vitamin B-6 (Pyridoxine Hcl) 50 Mg Tablet 50 Mg PO Ranitidine Hcl 300 Mg Capsule 1 Cap PO DAILY Alendronate Sodium 70 Mg Tablet 1 Tab PO WEEKLY Kaopectate (Bismuth Subsalicylate) 262 Mg/15 Ml Oral.susp 30 Ml PO PRN Q8HRS PRN Mag-Al Plus Xs Suspension (Mag Hydrox/Al Hydrox/Simeth) 30 Ml Oral.susp 30 Ml PO PRN Q4HRS PRN Albuterol Sulfate Neb Soln (Albuterol Sulfate) 2.5 Mg/3 Ml Vial.neb 2.5 Mg NEB PRN Q6HRS PRN Vitamin D3 (Cholecalciferol (Vitamin D3)) 1,000 Unit Tablet 1,000 Unit PO BID Dulcolax (Bisacodyl) 10 Mg Supp.rect 10 Mg RC PRN DAILY PRN Fleet Enema (Na Phos,M-B/Na Phos,Di-Ba) 133 Ml Enema 1 Each RC PRN PRN Tylenol (Acetaminophen) 325 Mg Tablet 2 Tab PO PRN Q6HRS PRN Zolpidem Tartrate 5 Mg Tablet 1 Tab PO PRN QHS PRN Spiriva (Tiotropium [place]) 18 Mcg Cap.w.dev 1 Cap IH DAILY Symbicort 160-4.5 Mcg Inhaler (Budesonide/Formoterol Fumarate) 10.2 Gm Hfa.aer.ad 2 Puff IH BID Proair Hfa Inhaler (Albuterol Sulfate) 8.5 Gm Hfa.aer.ad 2 Puff INH PRN Q6HRS PRN Metoprolol Tartrate 50 Mg Tablet 1 Tab PO BID Clopidogrel (Clopidogrel Bisulfate) 75 Mg Tablet 1 Tab PO DAILY Lasix (Furosemide) 20 Mg Tablet 1 Tab PO DAILY Vitals/I & O Vital Sign - Last 24 Hours 08/24/16 08/24/16 08/24/16 08/24/16 10:15 11:26 14:37 14:41 Temp 98.2 98.5 98.2 98.5 Pulse 79 107 97 Resp 22 22 B/P 104/45 126/61 126/61 Pulse Ox 94 80 94 O2 Delivery Nasal Cannula Nasal Cannula Nasal Cannula O2 Flow Rate 5.0 5.0 5.0 08/24/16 08/24/16 08/24/16 08/24/16 15:55 18:17 19:15 19:16 Pulse 97 B/P 126/61 Pulse Ox 92 94 94 O2 Delivery Nasal Cannula Nasal Cannula Nasal Cannula O2 Flow Rate 5.0 5.0 5.0 08/24/16 08/24/16 08/24/16 08/24/16 19:35 20:00 20:00 23:34 Temp 97.6 97.6 97.6 97.6 Pulse 80 79 Resp 30 22 B/P 96/45 105/48 Pulse Ox 95 96 O2 Delivery Nasal Cannula Nasal Cannula Nasal Cannula O2 Flow Rate 5.0 5.0 5.0 5.0 08/25/16 08/25/16 08/25/1608/25/17 03:31 06:15 06:24 07:48 Temp 97.3 98.2 97.3 98.2 Pulse 81 81 90 Resp 20 24 B/P 113/64 113/64 120/67 Pulse Ox 96 95 94 O2 Delivery Nasal Cannula Nasal Cannula Nasal Cannula O2 Flow Rate 5.0 5.0 5.0 08/25/16 08/25/16 08/25/16 07:50 08:00 08:00 Pulse Ox 94 O2 Delivery Nasal Cannula Nasal Cannula O2 Flow Rate 5.0 5.0 5.0 Intake and Output 08/24/16 08/24/16 08/25/16 15:00 23:00 07:00 Intake Total 1040 ml 250 ml Balance 1040 ml 250 ml RUIZ POSADAS MD Aug 25, 2016 09:59
--- NOTE | 2016-08-25 10:48 | PDOC ---
PROGRESS NOTES Chief Complaint Chief Complaint 1. AMS due to hypercapnic respiratory failure improved. 2. 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 Hypertension. 4. Chronic diastolic heart failure. 5. Chronic obstructive pulmonary disease. 6. Mild elevation of troponin. 7. Hypercapnic respiratory failure 8. Dysphagia. History of Present Illness History of Present Illness Patient awake, alert, and oriented laying down in bed seen and examined this AM. Family member present and at bedside. Pt denies any CP or SOA. No fever or chills VSS- All questions and concerns addressed and answered. Vitals Vitals Vital Signs Date Time Temp Pulse Resp B/P Pulse Ox O2 Delivery O2 Flow Rate FiO2 08/25/16 08:00 5.0 08/25/16 08:00 Nasal Cannula 08/25/16 07:50 94 08/25/16 06:24 98.2 90 24 120/67 98.2 Physical Exam General: Alert, Oriented X3, Cooperative, No acute distress Heart: Regular rate, Normal S1, Normal S2, No murmurs, Other (tele: SR) Lungs: Other (decrease bs) Abdomen: Normal bowel sounds, Soft Extremities: No clubbing, No cyanosis, No edema, Other Skin: No rashes, No breakdown, No significant lesion, Other Labs LABS Laboratory Tests Test 08/25/16 04:40 08/25/16 04:45 Sodium Level 146mmol/L (136-145) Potassium Level 3.4mmol/L (3.5-5.1) Chloride Level 106mmol/L (98-107) Carbon Dioxide Level 38mmol/L (21-32) Anion Gap 2 (6-14) Blood Urea Nitrogen 6mg/dL (7-20) Creatinine 0.4mg/dL (0.6-1.0) Estimated GFR (Cockcroft-Gault) 154.0 Glucose Level 105mg/dL (70-99) Calcium Level 8.5mg/dL (8.5-10.1) White Blood Count 5.4x10^3/uL (4.0-11.0) Red Blood Count 3.85x10^6/uL (3.50-5.40) Hemoglobin 12.3g/dL (12.0-15.5) Hematocrit 38.4% (36.0-47.0) Mean Corpuscular Volume 100fL (79-100) Mean Corpuscular Hemoglobin 32pg (25-35) Mean Corpuscular Hemoglobin Concent 32g/dL (31-37) Red Cell Distribution Width 13.4% (11.5-14.5) Platelet Count 136x10^3/uL (140-400) Neutrophils (%) (Auto) 74% (31-73) Lymphocytes (%) (Auto) 15% (24-48) Monocytes (%) (Auto) 8% (0-9) Eosinophils (%) (Auto) 3% (0-3) Basophils (%) (Auto) 0% (0-3) Neutrophils # (Auto) 4.0x10^3uL (1.8-7.7) Lymphocytes # (Auto) 0.8x10^3/uL (1.0-4.8) Monocytes # (Auto) 0.4x10^3/uL (0.0-1.1) Eosinophils # (Auto) 0.2x10^3/uL (0.0-0.7) Basophils # (Auto) 0.0x10^3/uL (0.0-0.2) Review of Systems Review of Systems Complaint of hunger Complaint of fatigue Assessment and Plan Assessmemt and Plan Problems Medical Problems: (1) Altered mental status Status: Acute (2) Dysphasia Status: Acute (3) Elevated troponin Status: Acute Assessment: 1. AMS due to hypercapnic respiratory failure improved. 2. 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 Hypertension. 4. Chronic diastolic heart failure. 5. Chronic obstructive pulmonary disease. 6. Mild elevation of troponin. 7. Hypercapnic respiratory failure 8. Dysphagia. Plan: Continue to monitor the patient per floor protocol Daily labs PTOT Discussed with Pulmonary DC later this afternoon back to [facility] Appreciate Neurology input and recommendations Continue Plavix Appreciate all subspecialty input and recommendations Discuss with floor nurse Problems: Comment Review of Relevant I have reviewed the following items ana laura (where applicable) has been applied. Labs Laboratory Tests Test 08/24/16 05:45 08/25/16 04:40 08/25/16 04:45 White Blood Count 6.0x10^3/uL (4.0-11.0) 5.4x10^3/uL (4.0-11.0) Red Blood Count 4.03x10^6/uL (3.50-5.40) 3.85x10^6/uL (3.50-5.40) Hemoglobin 12.8g/dL (12.0-15.5) 12.3g/dL (12.0-15.5) Hematocrit 39.9% (36.0-47.0) 38.4% (36.0-47.0) Mean Corpuscular Volume 99fL (79-100) 100fL (79-100) Mean Corpuscular Hemoglobin 32pg (25-35) 32pg (25-35) Mean Corpuscular Hemoglobin Concent 32g/dL (31-37) 32g/dL (31-37) Red Cell Distribution Width 13.5% (11.5-14.5) 13.4% (11.5-14.5) Platelet Count 150x10^3/uL (140-400) 136x10^3/uL (140-400) Neutrophils (%) (Auto) 76% (31-73) 74% (31-73) Lymphocytes (%) (Auto) 14% (24-48) 15% (24-48) Monocytes (%) (Auto) 8% (0-9) 8% (0-9) Eosinophils (%) (Auto) 2% (0-3) 3% (0-3) Basophils (%) (Auto) 1% (0-3) 0% (0-3) Neutrophils # (Auto) 4.6x10^3uL (1.8-7.7) 4.0x10^3uL (1.8-7.7) Lymphocytes # (Auto) 0.8x10^3/uL (1.0-4.8) 0.8x10^3/uL (1.0-4.8) Monocytes # (Auto) 0.4x10^3/uL (0.0-1.1) 0.4x10^3/uL (0.0-1.1) Eosinophils # (Auto) 0.1x10^3/uL (0.0-0.7) 0.2x10^3/uL (0.0-0.7) Basophils # (Auto) 0.0x10^3/uL (0.0-0.2) 0.0x10^3/uL (0.0-0.2) Sodium Level 146mmol/L (136-145) 146mmol/L (136-145) Potassium Level 3.4mmol/L (3.5-5.1) 3.4mmol/L (3.5-5.1) Chloride Level 104mmol/L (98-107) 106mmol/L (98-107) Carbon Dioxide Level 39mmol/L (21-32) 38mmol/L (21-32) Anion Gap 3 (6-14) 2 (6-14) Blood Urea Nitrogen 8mg/dL (7-20) 6mg/dL (7-20) Creatinine 0.4mg/dL (0.6-1.0) 0.4mg/dL (0.6-1.0) Estimated GFR (Cockcroft-Gault) 154.0 154.0 Glucose Level 118mg/dL (70-99) 105mg/dL (70-99) Calcium Level 8.7mg/dL (8.5-10.1) 8.5mg/dL (8.5-10.1) Laboratory Tests Test 08/25/16 04:40 08/25/16 04:45 Sodium Level 146mmol/L (136-145) Potassium Level 3.4mmol/L (3.5-5.1) Chloride Level 106mmol/L (98-107) Carbon Dioxide Level 38mmol/L (21-32) Anion Gap 2 (6-14) Blood Urea Nitrogen 6mg/dL (7-20) Creatinine 0.4mg/dL (0.6-1.0) Estimated GFR (Cockcroft-Gault) 154.0 Glucose Level 105mg/dL (70-99) Calcium Level 8.5mg/dL (8.5-10.1) White Blood Count 5.4x10^3/uL (4.0-11.0) Red Blood Count 3.85x10^6/uL (3.50-5.40) Hemoglobin 12.3g/dL (12.0-15.5) Hematocrit 38.4% (36.0-47.0) Mean Corpuscular Volume 100fL (79-100) Mean Corpuscular Hemoglobin 32pg (25-35) Mean Corpuscular Hemoglobin Concent 32g/dL (31-37) Red Cell Distribution Width 13.4% (11.5-14.5) Platelet Count 136x10^3/uL (140-400) Neutrophils (%) (Auto) 74% (31-73) Lymphocytes (%) (Auto) 15% (24-48) Monocytes (%) (Auto) 8% (0-9) Eosinophils (%) (Auto) 3% (0-3) Basophils (%) (Auto) 0% (0-3) Neutrophils # (Auto) 4.0x10^3uL (1.8-7.7) Lymphocytes # (Auto) 0.8x10^3/uL (1.0-4.8) Monocytes # (Auto) 0.4x10^3/uL (0.0-1.1) Eosinophils # (Auto) 0.2x10^3/uL (0.0-0.7) Basophils # (Auto) 0.0x10^3/uL (0.0-0.2) Medications Current Medications Ondansetron HCl (Zofran) 4 mg PRN Q8HRS PRN IV NAUSEA/VOMITING; Start 08/19/16 at 14:00; Stop 08/20/16 at 13:59; Status DC Acetaminophen (Tylenol) 650 mg PRN Q4HRS PRN PO FEVER; Start 08/19/16 at 14:00 ; Stop 08/20/16 at 13:59; Status DC Acetaminophen (Tylenol) 325 mg PRN Q6HRS PRN PO MILD PAIN / TEMP Last administered on 08/24/16t 14:31; Start 08/19/16 at 18:15 Acetaminophen/ Hydrocodone Bitart (Lortab 5/325) 1 tab PRN Q6HRS PRN PO MODERATE TO SEVERE PAIN; Start 08/19/16 at 18:15 Hydralazine HCl (Apresoline) 10 mg PRN Q4HRS PRN IVP ELEVATED BP, SEE COMMENTS ; Start 08/19/16 at 18:15 Ondansetron HCl (Zofran) 4 mg PRN Q8HRS PRN IV NAUSEA/VOMITING; Start 08/19/16 at 18:15 Albuterol Sulfate 2.5 mg 2.5 mg PRN Q4HRS PRN NEB SHORTNESS OF BREATH Last administered on 08/19/16 19:23; Start 08/19/16 at 18:15; Stop 08/20/16 at 22:07 ; Status DC Sodium Chloride (Iv Sodium Chloride 0.9% 1000ml Bag) 1,000 ml @ 75 mls/hr [id number] IV Last administered on 08/24/16 13:13; Start 08/19/16 at 18:15 Vitamin D (Vitamin D3) 1,000 unit BID PO Last administered on 08/25/16 08:43; Start 08/20/16 at 09:00 Metoprolol Tartrate (Lopressor) 50 mg BID PO Last administered on 08/20/16 20: 50; Start 08/20/16 at 09:00; Stop 08/21/16 at 15:29; Status DC Albuterol Sulfate (Ventolin Neb Soln) 2.5 mg PRN Q6HRS PRN NEB SHORTNESS OF BREATH; Start 08/20/16 at 22:00 Clopidogrel Bisulfate (Plavix) 75 mg DAILY PO Last administered on 08/25/16 08 :43; Start 08/21/16 at 09:00 Furosemide (Lasix) 20 mg DAILY PO Last administered on 08/21/16 11:45; Start 08/21/16 at 09:00; Stop 08/22/16 at 09:55; Status DC Prednisone (Prednisone) 10 mg DAILY PO ; Start 08/21/16 at 09:00; Stop 08/22/16 at 11:16; Status DC Pyridoxine HCl (Vitamin B-6) 50 mg DAILY PO Last administered on 08/25/16 08: 43; Start 08/21/16 at 09:00 Non-Formulary Medication 2 puff PRN Q6HRS PRN INH SHORTNESS OF BREATH; Start at 22:00; Status UNV Non-Formulary Medication 2 puff BID IH ; Start 08/21/16 at 09:00; Status UNV Non-Formulary Medication 1 cap DAILY IH ; Start 08/21/16 at 09:00; Status UNV Budesonide (Pulmicort) 0.5 mg RTBID NEB Last administered on 08/25/16 07:46; Start 08/21/16 at 08:00 Albuterol/ Ipratropium (Duoneb) 3 ml RTQID NEB Last administered on 08/25/16 07:46; Start 08/21/16 at 08:00 Metoprolol Tartrate (Lopressor) 2.5 mg Q6HRS IVP Last administered on 11:27; Start 08/21/16 at 18:00; Stop 08/22/16 at 16:24; Status DC Furosemide (Lasix) 20 mg 1X ONCE IVP Last administered on 08/21/16 16:19; Start 08/21/16 at 15:30; Stop 08/21/16 at 15:31; Status DC Furosemide (Lasix) 10 mg DAILY IVP Last administered on 08/23/16 08:46; Start 08/22/16 at 10:00 Barium Sulfate (Varibar Thin Liquid) 148 gm 1X ONCE PO Last administered on 14:35; Start 08/22/16 at 13:15; Stop 08/22/16 at 13:16; Status DC Metoprolol Tartrate (Lopressor) 5 mg Q6HRS IVP ; Start 08/22/16 at 18:00; Stop 08/22/16 at 18:00; Status DC Diltiazem HCl (Cardizem) 30 mg Q6HRS PO Last administered on 08/23/16 06:17; Start 08/22/16 at 18:00; Stop 08/23/16 at 10:15; Status DC Temazepam (Restoril) 15 mg PRN QHS PRN PO INSOMNIA Last administered on 21:08; Start 08/22/16 at 22:45 Diltiazem HCl (Cardizem) 60 mg Q6HRS PO Last administered on 08/25/16 06:15; Start 08/23/16 at 12:00 Active Scripts Active Tramadol Hcl 50 Mg Tablet 1 Tab PO PRN Q6HRS PRN Prednisone 10 Mg Tablet 10 Mg PO UD Take 3 tablets by mouth daily for 3 days, then take 2 tablets by mouth daily for 3 days, then take 1 tablet by mouth daily for 3 days, then stop. Levaquin (Levofloxacin) 250 Mg Tablet 250 Mg PO DAILY06 Amox Tr-K Clv 500-125 Mg Tab (Amoxicillin/Potassium Clav) 1 Each Tablet 1 Tab PO BID Reported Vitamin B-6 (Pyridoxine Hcl) 50 Mg Tablet 50 Mg PO Ranitidine Hcl 300 Mg Capsule 1 Cap PO DAILY Alendronate Sodium 70 Mg Tablet 1 Tab PO WEEKLY Kaopectate (Bismuth Subsalicylate) 262 Mg/15 Ml Oral.susp 30 Ml PO PRN Q8HRS PRN Mag-Al Plus Xs Suspension (Mag Hydrox/Al Hydrox/Simeth) 30 Ml Oral.susp 30 Ml PO PRN Q4HRS PRN Albuterol Sulfate Neb Soln (Albuterol Sulfate) 2.5 Mg/3 Ml Vial.neb 2.5 Mg NEB PRN Q6HRS PRN Vitamin D3 (Cholecalciferol (Vitamin D3)) 1,000 Unit Tablet 1,000 Unit PO BID Dulcolax (Bisacodyl) 10 Mg Supp.rect 10 Mg RC PRN DAILY PRN Fleet Enema (Na Phos,M-B/Na Phos,Di-Ba) 133 Ml Enema 1 Each RC PRN PRN Tylenol (Acetaminophen) 325 Mg Tablet 2 Tab PO PRN Q6HRS PRN Zolpidem Tartrate 5 Mg Tablet 1 Tab PO PRN QHS PRN Spiriva (Tiotropium [place]) 18 Mcg Cap.w.dev 1 Cap IH DAILY Symbicort 160-4.5 Mcg Inhaler (Budesonide/Formoterol Fumarate) 10.2 Gm Hfa.aer.ad 2 Puff IH BID Proair Hfa Inhaler (Albuterol Sulfate) 8.5 Gm Hfa.aer.ad 2 Puff INH PRN Q6HRS PRN Metoprolol Tartrate 50 Mg Tablet 1 Tab PO BID Clopidogrel (Clopidogrel Bisulfate) 75 Mg Tablet 1 Tab PO DAILY Lasix (Furosemide) 20 Mg Tablet 1 Tab PO DAILY Vitals/I & O Vital Sign - Last 24 Hours 08/24/16 08/24/16 08/24/16 08/24/16 11:26 14:37 14:41 15:55 Temp 98.5 98.5 Pulse 107 97 Resp 22 B/P 126/61 126/61 Pulse Ox 80 94 92 O2 Delivery Nasal Cannula Nasal Cannula Nasal Cannula O2 Flow Rate 5.0 5.0 5.0 08/24/16 08/24/16 08/24/16 08/24/16 18:17 19:15 19:16 19:35 Temp 97.6 97.6 Pulse 97 80 Resp 30 B/P 126/61 96/45 Pulse Ox 94 94 95 O2 Delivery Nasal Cannula Nasal Cannula Nasal Cannula O2 Flow Rate 5.0 5.0 5.0 08/24/16 08/24/16 08/24/16 08/25/16 20:00 20:00 23:34 03:31 Temp 97.6 97.3 97.6 97.3 Pulse 79 81 Resp 22 20 B/P 105/48 113/64 Pulse Ox 96 96 O2 Delivery Nasal Cannula Nasal Cannula Nasal Cannula O2 Flow Rate 5.0 5.0 5.0 5.0 08/25/16 08/25/16 08/25/16 08/25/16 06:15 06:24 07:48 07:50 Temp 98.2 98.2 Pulse 81 90 Resp 24 B/P 113/64 120/67 Pulse Ox 95 94 94 O2 Delivery Nasal Cannula Nasal Cannula Nasal Cannula O2 Flow Rate 5.0 5.0 5.0 08/25/16 08/25/16 08:00 08:00 O2 Delivery Nasal Cannula O2 Flow Rate 5.0 5.0 Intake and Output 08/24/16 08/24/16 08/25/16 15:00 23:00 07:00 Intake Total 1040 ml 250 ml Balance 1040 ml 250 ml ROGELIO OSMAN III DO Aug 25, 2016 10:48
[2016-08-25] MEDS: FUROSEMIDE 20 MG TABLET PO SCH ×2 (10:53→11:53)
[2016-08-25] MEDS ORDERED: POTASSIUM CHLORIDE 20 MEQ TABLET.ER. PO ONE (11:15)
[2016-08-25 11:30] VITALS: BP 131/53
[2016-08-25 11:55] VITALS: BP 131/53
[2016-08-25] MEDS ORDERED: DILTIAZEM HCL 240 MG CAP.ER.24H PO SCH (13:00)
--- NOTE | 2016-08-25 13:35 | PDOC ---
PULMONARY PROGRESS NOTES Subjective continues to improve Vitals Vital Signs Date Time Temp Pulse Resp B/P Pulse Ox O2 Delivery O2 Flow Rate FiO2 08/25/16 11:55 99 131/53 08/25/16 11:44 95 Nasal Cannula 5.0 08/25/16 11:30 98.1 18 98.1 General: Alert, No acute distress Lungs: Other (decrease bs) Cardiovascular: S1, S2 Abdomen: Soft, Non-tender Neuro Exam: Alert Extremities: No Edema Labs Laboratory Tests Test 08/24/16 05:45 08/25/16 04:40 08/25/16 04:45 White Blood Count 6.0x10^3/uL (4.0-11.0) 5.4x10^3/uL (4.0-11.0) Red Blood Count 4.03x10^6/uL (3.50-5.40) 3.85x10^6/uL (3.50-5.40) Hemoglobin 12.8g/dL (12.0-15.5) 12.3g/dL (12.0-15.5) Hematocrit 39.9% (36.0-47.0) 38.4% (36.0-47.0) Mean Corpuscular Volume 99fL (79-100) 100fL (79-100) Mean Corpuscular Hemoglobin 32pg (25-35) 32pg (25-35) Mean Corpuscular Hemoglobin Concent 32g/dL (31-37) 32g/dL (31-37) Red Cell Distribution Width 13.5% (11.5-14.5) 13.4% (11.5-14.5) Platelet Count 150x10^3/uL (140-400) 136x10^3/uL (140-400) Neutrophils (%) (Auto) 76% (31-73) 74% (31-73) Lymphocytes (%) (Auto) 14% (24-48) 15% (24-48) Monocytes (%) (Auto) 8% (0-9) 8% (0-9) Eosinophils (%) (Auto) 2% (0-3) 3% (0-3) Basophils (%) (Auto) 1% (0-3) 0% (0-3) Neutrophils # (Auto) 4.6x10^3uL (1.8-7.7) 4.0x10^3uL (1.8-7.7) Lymphocytes # (Auto) 0.8x10^3/uL (1.0-4.8) 0.8x10^3/uL (1.0-4.8) Monocytes # (Auto) 0.4x10^3/uL (0.0-1.1) 0.4x10^3/uL (0.0-1.1) Eosinophils # (Auto) 0.1x10^3/uL (0.0-0.7) 0.2x10^3/uL (0.0-0.7) Basophils # (Auto) 0.0x10^3/uL (0.0-0.2) 0.0x10^3/uL (0.0-0.2) Sodium Level 146mmol/L (136-145) 146mmol/L (136-145) Potassium Level 3.4mmol/L (3.5-5.1) 3.4mmol/L (3.5-5.1) Chloride Level 104mmol/L (98-107) 106mmol/L (98-107) Carbon Dioxide Level 39mmol/L (21-32) 38mmol/L (21-32) Anion Gap 3 (6-14) 2 (6-14) Blood Urea Nitrogen 8mg/dL (7-20) 6mg/dL (7-20) Creatinine 0.4mg/dL (0.6-1.0) 0.4mg/dL (0.6-1.0) Estimated GFR (Cockcroft-Gault) 154.0 154.0 Glucose Level 118mg/dL (70-99) 105mg/dL (70-99) Calcium Level 8.7mg/dL (8.5-10.1) 8.5mg/dL (8.5-10.1) Laboratory Tests Test 08/25/16 04:40 08/25/16 04:45 Sodium Level 146mmol/L (136-145) Potassium Level 3.4mmol/L (3.5-5.1) Chloride Level 106mmol/L (98-107) Carbon Dioxide Level 38mmol/L (21-32) Anion Gap 2 (6-14) Blood Urea Nitrogen 6mg/dL (7-20) Creatinine 0.4mg/dL (0.6-1.0) Estimated GFR (Cockcroft-Gault) 154.0 Glucose Level 105mg/dL (70-99) Calcium Level 8.5mg/dL (8.5-10.1) White Blood Count 5.4x10^3/uL (4.0-11.0) Red Blood Count 3.85x10^6/uL (3.50-5.40) Hemoglobin 12.3g/dL (12.0-15.5) Hematocrit 38.4% (36.0-47.0) Mean Corpuscular Volume 100fL (79-100) Mean Corpuscular Hemoglobin 32pg (25-35) Mean Corpuscular Hemoglobin Concent 32g/dL (31-37) Red Cell Distribution Width 13.4% (11.5-14.5) Platelet Count 136x10^3/uL (140-400) Neutrophils (%) (Auto) 74% (31-73) Lymphocytes (%) (Auto) 15% (24-48) Monocytes (%) (Auto) 8% (0-9) Eosinophils (%) (Auto) 3% (0-3) Basophils (%) (Auto) 0% (0-3) Neutrophils # (Auto) 4.0x10^3uL (1.8-7.7) Lymphocytes # (Auto) 0.8x10^3/uL (1.0-4.8) Monocytes # (Auto) 0.4x10^3/uL (0.0-1.1) Eosinophils # (Auto) 0.2x10^3/uL (0.0-0.7) Basophils # (Auto) 0.0x10^3/uL (0.0-0.2) Medications Active Scripts Medications Dose Route/Sig Days Date Category Dose Instructions Vitamin B-6 (Pyridoxine Hcl) 50 Mg Tablet 50 Mg PO 08/19/16 Reported Ranitidine Hcl 300 Mg Capsule 1 Cap PO DAILY 08/19/16 Reported Alendronate Sodium 70 Mg Tablet 1 Tab PO WEEKLY 08/19/16 Reported Tramadol Hcl 50 Mg Tablet 1 Tab PO PRN Q6HRS PRN 2/7/17 Rx Prednisone 10 Mg Tablet 10 Mg PO UD 08/04/16 Rx Take 3 tablets by mouth daily for 3 days, then take 2 tablets by mouth daily for 3 days, then take 1 tablet by mouth daily for 3 days, then stop. Levaquin (Levofloxacin) 250 Mg Tablet 250 Mg PO DAILY06 08/04/16 Rx Amox Tr-K Clv 500-125 Mg Tab (Amoxicillin/Potassium Clav) 1 Each Tablet 1 Tab PO BID 07/11/16 Rx Kaopectate (Bismuth Subsalicylate) 262 Mg/15 Ml Oral.susp 30 Ml PO PRN Q8HRS PRN 07/06/16 Reported Mag-Al Plus Xs Suspension (Mag Hydrox/Al Hydrox/Simeth) 30 Ml Oral.susp 30 Ml PO PRN Q4HRS PRN 07/06/16 Reported Albuterol Sulfate Neb Soln (Albuterol Sulfate) 2.5 Mg/3 Ml Vial.neb 2.5 Mg NEB PRN Q6HRS PRN 07/06/16 Reported Vitamin D3 (Cholecalciferol (Vitamin D3)) 1,000 Unit Tablet 1,000 Unit PO BID 07/06/16 Reported Dulcolax (Bisacodyl) 10 Mg Supp.rect 10 Mg RC PRN DAILY PRN 07/06/16 Reported Fleet Enema (Na Phos,M-B/Na Phos,Di-Ba) 133 Ml Enema 1 Each RC PRN PRN 07/06/16 Reported Tylenol (Acetaminophen) 325 Mg Tablet 2 Tab PO PRN Q6HRS PRN 07/06/16 Reported Zolpidem Tartrate 5 Mg Tablet 1 Tab PO PRN QHS PRN 06/29/16 Reported Spiriva (Tiotropium [place]) 18 Mcg Cap.w.dev 1 Cap IH DAILY 03/03/16 Reported Symbicort 160-4.5 Mcg Inhaler (Budesonide/Formoterol Fumarate) 10.2 Gm Hfa.aer.ad 2 Puff IH BID 03/03/16 Reported Proair Hfa Inhaler (Albuterol Sulfate) 8.5 Gm Hfa.aer.ad 2 Puff INH PRN Q6HRS PRN 03/03/16 Reported Metoprolol Tartrate 50 Mg Tablet 1 Tab PO BID 03/03/16 Reported Clopidogrel (Clopidogrel Bisulfate) 75 Mg Tablet 1 Tab PO DAILY 03/03/16 Reported Lasix (Furosemide) 20 Mg Tablet 1 Tab PO DAILY 03/03/16 Reported Impression . 1. Acute on chronic hypercapnic respiratory failure secondary to acute exacerbation of chronic obstructive pulmonary disease. 2. 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 3. Underlying severe chronic obstructive pulmonary disease, which is oxygen dependent. 4. No definite pneumonia seen on the chest x-ray. Plan . 1. Clinically improved with BIPAP/ now on nasal canula only 2. Repeat ABGs much improved. 3. Continue with present bronchodilators. 4. Avoid any narcotics. 5. speech f/u, on dysphagia diet 6. Discussed with RN 7. Back to skill today 8. SS as OP to qualify for home CPAP CHEYANNE SUTHERLAND MD Aug 25, 2016 13:35
[2016-08-25] MEDS ORDERED: DILT240C2 PO (14:25)
== END 2016-08-25 15:21 | DRG 64 ==
LOC: ER 11:13 → ED HOLD 13:40 → 2 SOUTH 20:10
PROVIDERS: ADMIT Internal Medicine; ATTEND Internal Medicine
PROC: 5A09357 Assistance with Respiratory Ventilation, Less than 24 Consecutive Hours, Continuous Positive Airway Pressure (ICD-10-PCS; principal; 2016-08-20)
DX: I63.9 Cerebral infarction, unspecified (principal); J96.22 Acute and chronic respiratory failure with hypercapnia; G93.41 Metabolic encephalopathy; J44.1 Chronic obstructive pulmonary disease with (acute) exacerbation; G93.1 Anoxic brain damage, not elsewhere classified; I50.32 Chronic diastolic (congestive) heart failure; E78.5 Hyperlipidemia, unspecified; F03.90 Unspecified dementia, unspecified severity, without behavioral disturbance, psychotic disturbance, mood disturbance, and anxiety; I27.2 Other secondary pulmonary hypertension; I11.0 Hypertensive heart disease with heart failure; K21.9 Gastro-esophageal reflux disease without esophagitis; M81.0 Age-related osteoporosis without current pathological fracture; R47.1 Dysarthria and anarthria; M19.90 Unspecified osteoarthritis, unspecified site; E53.8 Deficiency of other specified B group vitamins; F41.9 Anxiety disorder, unspecified; G47.00 Insomnia, unspecified; G89.29 Other chronic pain; R13.10 Dysphagia, unspecified; Z79.02 Long term (current) use of antithrombotics/antiplatelets; Z80.3 Family history of malignant neoplasm of breast; Z86.73 Personal history of transient ischemic attack (TIA), and cerebral infarction without residual deficits; Z87.891 Personal history of nicotine dependence; Z90.49 Acquired absence of other specified parts of digestive tract; Z99.81 Dependence on supplemental oxygen; Z87.01 Personal history of pneumonia (recurrent); Z90.710 Acquired absence of both cervix and uterus
CPT/HCPCS: 36415; 36600; 70450; 70551; 71010; 74230; 80048; 80061; 80076; 82805; 82947; 84439; 84443; 84481; 84484; 85007; 85027; 85610; 85730; 87641; 93005; 93306; 93880; 94640; 94660; 94760; J3490; J7030; J7620; 92526; 92610; 92611; 99285-25

== ENCOUNTER → 2016-11-03 | Outpatient (CLI) | payer MEDICARE ==
[~2016-11-03] MED LIST changes: +DILT240C2 PO; +PYRI50TA4 PO; -ZOLP5TAB4 PO; +ZOLP5TAB5 PO
[2016-11-03 09:50] LABS: HCO3 ABG 31 mmol/L (21-28); PCO2 ABG 49 mmHg (35-46); PH ABG 7.43 (7.35-7.45); PO2 ABG 53 mmHg (65-108)
[2016-11-03 09:51] LABS: ALLEN TEST Y; FIO2 ABG 32; SAT O2 ABG 88 % (92-99)
== END | disposition home or self-care (01) ==
LOC: RT 09:18
PROVIDERS: ATTEND Family Medicine
DX: J44.9 Chronic obstructive pulmonary disease, unspecified (principal); R09.89 Other specified symptoms and signs involving the circulatory and respiratory systems
CPT/HCPCS: 36600; 82805